=== PATIENT | male | born 1945 | race Caucasian/White ===

== ENCOUNTER 2017-12-08 15:07 | Inpatient (IN) | payer OTHER, MEDICARE ==
[~2017-12-08] VITALS: Ht 170.2 cm; Wt 89.5 kg
[~2017-12-08 15:07] MED LIST: AZIT250 PO; CIPR500 PO; FLUC100 PO; HYDACE10 PO; IBUP600 PO; Norco 10-325 T1 EACH PO; OMEPRAZOLE MAGN20 MG PO; TRAM50 PO
[2017-12-08 15:40] LABS: Source, Urine Catheter
[2017-12-08 15:44] LABS: Appearance, Urine Cloudy (Clear); Blood, Urine 5+ (Neg); Color, Urine Brown (P-Yellow); Glucose Qualitative, Urine Neg (Neg); Ketones, Urine 2+ (Neg); Leukocyte Esterase, Urine 3+ (Neg); Nitrite, Urine Neg (Neg); Protein, Urine 2+ (Neg); Specific Gravity, Urine 1.015 (1.003-1.022); Urobilinogen, Urine 3+ (Normal)
[2017-12-08 15:58] LABS: Bilirubin, Urine 2+ (Neg)
[2017-12-08 16:00] LABS: White Blood Cells, Urine 25-50 /hpf (0-5)
[2017-12-08 16:01] LABS: Red Blood Cells, Urine 25-50 /hpf (0-2)
[2017-12-08 16:02] LABS: Bacteria Many /hpf; Squamous Epithelial Cells Few /hpf (Few)
[2017-12-08 16:03] LABS: Calcium Oxalate Crystals Rare /hpf
[2017-12-08] MEDS ORDERED: ALEN70 PO (16:58)
[2017-12-08] MEDS ORDERED: BACL10 PO (16:59)
[2017-12-08] MEDS ORDERED: Fergon240 M1 PO (16:59)
[2017-12-08] MEDS ORDERED: TROSPIUM CHLORI20 MG PO (17:00)
[2017-12-08] MEDS ORDERED: ARTIFICIAL TEAR15 ML BOTHEYES (18:44)
[2017-12-08] MEDS ORDERED: MUPIROCIN1 GM TOP (18:46)
[2017-12-08] MEDS ORDERED: VANICREAM453 GM TOP (18:48)
[2017-12-08] MEDS ORDERED: ASCORBIC ACID500 MG PO (18:49)
[2017-12-08] MEDS ORDERED: ERGO400 PO (18:49)
[2017-12-08] MEDS ORDERED: ASPI81CH PO (18:49)
[2017-12-08] MEDS ORDERED: Super B-50 Com1 EACH PO (18:50)
[2017-12-09 06:16] LABS: Hematocrit 33.1 % (37.0-53.0); Hemoglobin 9.9 g/dL (13.5-17.5); Mean Corpuscular HGB 22.8 pg (26.0-34.0); Mean Corpuscular HGB Conc 29.9 g/dL (31.5-36.5); Mean Corpuscular Volume 76 fL (80-100); Platelet Count 594 K/mm3 (150-400); RDW Coefficient Variation 18.3 % (11.7-14.2); Red Blood Cell Count 4.35 M/mm3 (4.30-5.90); White Blood Cell Count 17.68 K/mm3 (4.00-11.30)
[2017-12-09 06:32] LABS: Anion Gap 13 mmol/L (6-16); Blood Urea Nitrogen 27 mg/dL (8-24); Bun/Creatinine Ratio 50.8 (12.0-20.0); CO2, Blood 18 mmol/L (21-32); Calcium, Blood 7.8 mg/dL (8.5-10.1); Chloride, Blood 107 mmol/L (98-108); Creatinine, Blood 0.53 mg/dL (0.60-1.20); Glomerular Filtration Rate >60 (60-); Glucose, Blood 118 mg/dL (70-99); Potassium, Blood 4.2 mmol/L (3.5-5.5); Sodium, Blood 138 mmol/L (136-145)
[2017-12-10 03:30] LABS: Hematocrit 29.1 % (37.0-53.0); Hemoglobin 8.9 g/dL (13.5-17.5); Mean Corpuscular HGB 23.3 pg (26.0-34.0); Mean Corpuscular HGB Conc 30.6 g/dL (31.5-36.5); Mean Corpuscular Volume 76 fL (80-100); Mean Platelet Volume 8.9 fL (9.1-12.4); Platelet Count 552 K/mm3 (150-400); RDW Coefficient Variation 18.4 % (11.7-14.2); RDW Standard Deviation 50.6 fL (35.1-46.3); Red Blood Cell Count 3.82 M/mm3 (4.30-5.90); White Blood Cell Count 14.63 K/mm3 (4.00-11.30)
[2017-12-10 03:47] LABS: Albumin, Blood 1.5 g/dL (3.4-5.0); Anion Gap 12 mmol/L (6-16); Blood Urea Nitrogen 33 mg/dL (8-24); Bun/Creatinine Ratio 54.3 (12.0-20.0); CO2, Blood 19 mmol/L (21-32); Calcium, Blood 7.2 mg/dL (8.5-10.1); Chloride, Blood 108 mmol/L (98-108); Creatinine, Blood 0.61 mg/dL (0.60-1.20); Glomerular Filtration Rate >60 (60-); Glucose, Blood 94 mg/dL (70-99); Phosphorus, Blood 3.4 mg/dL (2.5-4.9); Potassium, Blood 3.9 mmol/L (3.5-5.5); Sodium, Blood 139 mmol/L (136-145)
[2017-12-10 06:22] LABS: Source, Urine Catheter
[2017-12-10 06:25] LABS: Blood, Urine 2+ (Neg); Glucose Qualitative, Urine Neg (Neg); Ketones, Urine Neg (Neg); Leukocyte Esterase, Urine 1+ (Neg); Nitrite, Urine Neg (Neg); Protein, Urine 2+ (Neg); Urobilinogen, Urine 2+ (Normal)
[2017-12-10 06:30] LABS: Appearance, Urine Clear (Clear); Bilirubin, Urine 1+ (Neg); Color, Urine Amber (P-Yellow)
[2017-12-10 06:31] LABS: White Blood Cells, Urine 0-2 /hpf (0-5)
[2017-12-10 06:32] LABS: Amorphous Mod (0-Heavy); Bacteria Few /hpf; Squamous Epithelial Cells Few /hpf (Few)
[2017-12-10 06:33] LABS: Granular Casts 0-2 /lpf (0); Renal Epithelial Few /hpf (0-Rare); Transitional Epithelial Cells Few /hpf (0-Rare)
[2017-12-11 04:09] LABS: Hematocrit 22.1 % (37.0-53.0); Hemoglobin 6.9 g/dL (13.5-17.5); Mean Corpuscular HGB 23.5 pg (26.0-34.0); Mean Corpuscular HGB Conc 31.2 g/dL (31.5-36.5); Mean Corpuscular Volume 75 fL (80-100); Mean Platelet Volume 9.3 fL (9.1-12.4); Platelet Count 482 K/mm3 (150-400); RDW Coefficient Variation 18.6 % (11.7-14.2); RDW Standard Deviation 50.3 fL (35.1-46.3); Red Blood Cell Count 2.94 M/mm3 (4.30-5.90); White Blood Cell Count 13.71 K/mm3 (4.00-11.30)
[2017-12-11 06:14] LABS: Anion Gap 9 mmol/L (6-16); Blood Urea Nitrogen 25 mg/dL (8-24); Bun/Creatinine Ratio 43.6 (12.0-20.0); CO2, Blood 21 mmol/L (21-32); Calcium, Blood 7.2 mg/dL (8.5-10.1); Chloride, Blood 109 mmol/L (98-108); Creatinine, Blood 0.57 mg/dL (0.60-1.20); Glomerular Filtration Rate >60 (60-); Glucose, Blood 93 mg/dL (70-99); Potassium, Blood 3.2 mmol/L (3.5-5.5); Sodium, Blood 139 mmol/L (136-145)
[2017-12-12] MEDS ORDERED: CEFU500T30 PO (12:24)
[2017-12-12] MEDS ORDERED: ACIDOPHILUS1 EAC2 PO (12:25)
[2017-12-12] MEDS ORDERED: Pedi-Dri 100,0060 GM TOP (12:36)
[2017-12-12] MEDS ORDERED: MIRALAX17 GM PO (12:37)
== END 2017-12-12 14:48 | disposition home health service (06) | DRG 698 ==
LOC: ER 15:07 → PCU 16:22 → MEDS 12-11 15:29 → ENPENDDIS 12-12 13:01 → MEDS 12-12 14:48
PROVIDERS: Internal Medicine; Physician Assistant
PROC: 30233N1 Transfusion of Nonautologous Red Blood Cells into Peripheral Vein, Percutaneous Approach (ICD-10-PCS; principal; 2017-12-11)
DX: T83.511A Infection and inflammatory reaction due to indwelling urethral catheter, initial encounter (principal); A41.9 Sepsis, unspecified organism; R65.21 Severe sepsis with septic shock; G82.20 Paraplegia, unspecified; E87.2 Acidosis; N39.0 Urinary tract infection, site not specified; B96.4 Proteus (mirabilis) (morganii) as the cause of diseases classified elsewhere; B96.89 Other specified bacterial agents as the cause of diseases classified elsewhere; L89.159 Pressure ulcer of sacral region, unspecified stage; L89.899 Pressure ulcer of other site, unspecified stage; N31.9 Neuromuscular dysfunction of bladder, unspecified; I25.10 Atherosclerotic heart disease of native coronary artery without angina pectoris; E87.6 Hypokalemia; I10 Essential (primary) hypertension; D50.8 Other iron deficiency anemias; E86.0 Dehydration; E87.79 Other fluid overload; K59.00 Constipation, unspecified; L30.4 Erythema intertrigo; B37.2 Candidiasis of skin and nail; Z43.3 Encounter for attention to colostomy; S24.102S Unspecified injury at T2-T6 level of thoracic spinal cord, sequela; Z95.1 Presence of aortocoronary bypass graft; Z79.899 Other long term (current) drug therapy; Z79.82 Long term (current) use of aspirin; Z87.891 Personal history of nicotine dependence
CPT/HCPCS: 36415; 71045; 74018; 80048; 80069; 81001; 83605; 85027; 86850; 86900; 86901; 86923; 87077; 87086; 87186; 96361; 96374; 99285-25; J0696; J1650; J1885; J1940; J2405; J2543; J2765; J7030; P9016

== ENCOUNTER → 2019-04-02 | Outpatient (CLI) | payer MEDICARE ==
[~2019-04-02] MED LIST changes: +ACET500 PO; +ACIDOPHILUS1 EAC2 PO; +ALEN70 PO; +ARTIFICIAL TEAR15 M1 BOTHEYES; +ARTIFICIAL TEAR15 ML BOTHEYES; +ASCORBIC ACID500 MG PO; +Aspir 8181 MG PO; +B Complex-Foli1 EACH PO; +BACL10 PO; +CEFP200 PO; +CEFU500T30 PO; +CENTRUM SILVER1 EAC2 PO; +ERGO400 PO; +Fergon240 M1 PO; +GABA400 PO; +IODOSORB TOP; +LIDOCAINE5 GM TOP; +METO25ER PO; +MIRALAX17 GM; +MUPIROCIN1 GM TOP; +Norco 10-325 T1 EACH; +Pedi-Dri 100,0060 GM TOP; +Super B-50 Com1 EACH PO; +THERA-D2000 UNIT PO; +TROSPIUM CHLORI20 MG PO; +VANICREAM453 GM TOP
== END | disposition home or self-care (01) ==
LOC: LAB SHORT 19:32 → LAB 19:32
DX: T21.02XA Burn of unspecified degree of abdominal wall, initial encounter (principal)
CPT/HCPCS: 87070; 87075; 87077; 87147; 87186; 87205

== ENCOUNTER 2019-04-04 15:41 | Inpatient (IN) | payer MEDICARE ==
[~2019-04-04] VITALS: Ht 167.6 cm; Wt 92.1 kg
[~2019-04-04 15:41] MED LIST changes: -ACET500 PO; -ARTIFICIAL TEAR15 M1 BOTHEYES; -B Complex-Foli1 EACH PO; -CENTRUM SILVER1 EAC2 PO; -GABA400 PO; -IODOSORB TOP; -LIDOCAINE5 GM TOP; -METO25ER PO; -THERA-D2000 UNIT PO
[2019-04-04 16:56] LABS: BASOPHILS ABSOLUTE AUTO 0.02 K/mm3 (0.00-0.23); BASOPHILS PERCENT AUTO 0 % (0-2); EOSINOPHILS ABSOLUTE AUTO 0.02 K/mm3 (0.00-0.68); EOSINOPHILS PERCENT AUTO 0 % (0-6); Hemoglobin 11.5 g/dL (13.5-17.5); IMMATURE GRAN ABSOLUTE AUTO 0.06 K/mm3 (0.00-0.10); IMMATURE GRAN PERCENT AUTO 0 % (0-1); LYMPHOCYTES ABSOLUTE AUTO 0.91 K/mm3 (0.84-5.20); LYMPHOCYTES PERCENT AUTO 6 % (21-46); MONOCYTES PERCENT AUTO 5 % (4-13); Mean Corpuscular HGB 26.8 pg (26.0-34.0); Mean Corpuscular HGB Conc 30.3 g/dL (31.5-36.5); Mean Corpuscular Volume 89 fL (80-100); Mean Platelet Volume 9.3 fL (9.1-12.4); NEUTROPHILS ABSOLUTE AUTO 13.46 K/mm3 (1.96-9.15); NEUTROPHILS PERCENT AUTO 88 % (41-73); Platelet Count 611 K/mm3 (150-400); RDW Coefficient Variation 14.9 % (11.7-14.2); RDW Standard Deviation 48.9 fL (35.1-46.3); Red Blood Cell Count 4.29 M/mm3 (4.30-5.90); White Blood Cell Count 15.27 K/mm3 (4.00-11.30)
[2019-04-04 17:20] LABS: Magnesium, Blood 1.7 mg/dL (1.6-2.4)
[2019-04-04 17:28] LABS: Alanine Aminotransfer (ALT/SGP 13 U/L (12-78); Albumin, Blood 1.9 g/dL (3.4-5.0); Albumin/Globulin Ratio 0.3 (0.8-1.8); Alk Phos 114 U/L (50-136); Anion Gap 15 mmol/L (6-16); Aspartate Aminotrans (AST/SGOT 17 U/L (12-37); Beta-hydroxybutyrate 37.8 mg/dL (0.2-2.8); Bilirubin, Total 0.6 mg/dL (0.1-1.0); Blood Urea Nitrogen 25 mg/dL (8-24); Bun/Creatinine Ratio 41.9 (12.0-20.0); CO2, Blood 23 mmol/L (21-32); Calcium, Blood 8.8 mg/dL (8.5-10.1); Chloride, Blood 96 mmol/L (98-108); Globulin, Blood 5.9 g/dL (2.2-4.0); Glomerular Filtration Rate >60 (60-); Glucose, Blood 98 mg/dL (70-99); Potassium, Blood 4.3 mmol/L (3.5-5.5); Sodium, Blood 134 mmol/L (136-145); Total Protein, Blood 7.8 g/dL (6.4-8.2)
[2019-04-04 17:44] LABS: Source, Urine Catheter
[2019-04-04 17:54] LABS: Blood, Urine 3+ (Neg); Glucose Qualitative, Urine Neg (Neg); Ketones, Urine 3+ (Neg); Leukocyte Esterase, Urine 3+ (Neg); Nitrite, Urine Pos (Neg); Protein, Urine 3+ (Neg); Specific Gravity, Urine 1.025 (1.003-1.022); Urobilinogen, Urine 2+ (Normal)
[2019-04-04 18:20] LABS: Appearance, Urine Cloudy (Clear); Bilirubin, Urine 2+ (Neg); Color, Urine Amber (P-Yellow)
[2019-04-04 18:22] LABS: Bacteria Many /hpf; Red Blood Cells, Urine 0-2 /hpf (0-2); Squamous Epithelial Cells Not Seen /hpf (Few); White Blood Cells, Urine TNTC /hpf (0-5)
[2019-04-04] MEDS ORDERED: THERA-D2000 UNIT PO (19:52)
[2019-04-04] MEDS ORDERED: GABA400 PO (19:53)
[2019-04-04] MEDS ORDERED: METO25ER PO (19:55)
[2019-04-04] MEDS ORDERED: CENTRUM SILVER1 EAC2 PO (19:56)
[2019-04-04 20:18] LABS: PCO2 Arterial 34.8 mmHg (35-45); PO2 Arterial 104 mmHg (80-100)
--- NOTE | 2019-04-04 20:25 | NUR ---
PATIENT ARRIVED TO ICU 10 VIA GURNEY FROM ED. ADMIT WITH DX OF SEPSIS, UTI, AND EXTENSIVE WOUNDS. PATIENT TRANSFER TO BED USING SLIDER SHEET AND PLACED ON ICU MONITORS. NO MOVEMENT AND CONTRACTURES TO FEET AND LEGS. GROSS MOVEMENT TO ARMS AND FINGERS BOTH HANDS HAVE CONTRACTURES. PATIENT VERBALIZED "HOW DID I GET HERE" BUT WHEN EXPLAINED TO PATIENT WHY HE IS HERE HE REPEATS QUESTION. PATIENT ANSWERING QUESTIONS WITH YES AND I DON'T KNOW AND VERY INCONSISTENT WITH ANSWERS. PATIENT VERY IMPULSIVE AND PULLING AT HEART MONITOR AND LINEN, UNABLE TO VERBALIZE WHY HE IS PULLING ON THINGS AND WHERE HE IS HURTING. EXTENSIVE WOUNDS TO ABD, BUTTOCKS, RIGHT HIP, AND BOTH LEGS. SEE ED PICTURES. DRAINAGE TO BUTTOCKS WITH STRONG SMELLING DRAINAGE.
--- NOTE | 2019-04-04 23:00 | NUR ---
SUPRAPUBIC CATH CHANGED AND REPLACED WITH LOYOLA WITH TEMP PROBE. AREA AROUND INSERTION SITE RED WITH CRUSTY DRAINAGE. EXCHANGE COMPLETE WITHOUT DIFFICULTY. SILVADENE CREAM PLACED TO ABD AND RICHARD AREA AND COVERED WITH ABD PADS. PATIENT PREMEDICATED WITH FENTANYL FOR PAIN. PATIENT CONTINUES TO HAVE CONFUSED CONVERSATION. NEEDING FREQUENT REMINDING TO NOT PULL OFF HEART MONITOR OR DRESSINGS
[2019-04-04 23:28] LABS: Source, Urine Catheter
[2019-04-04 23:32] LABS: Bilirubin, Urine Neg (Neg); Blood, Urine 5+ (Neg); Glucose Qualitative, Urine Neg (Neg); Ketones, Urine 3+ (Neg); Leukocyte Esterase, Urine 3+ (Neg); Nitrite, Urine Neg (Neg); Protein, Urine 2+ (Neg); Urobilinogen, Urine NORM (Normal)
[2019-04-04 23:40] LABS: Appearance, Urine Hazy (Clear); Color, Urine Yellow (P-Yellow)
[2019-04-04 23:41] LABS: Bacteria Mod /hpf; Red Blood Cells, Urine 25-50 /hpf (0-2); Squamous Epithelial Cells Few /hpf (Few); White Blood Cells, Urine TNTC /hpf (0-5)
--- NOTE | 2019-04-05 | NUR ---
MULTIPLE DRESSINGS COMPLETE, AND NYSTATIN CREAM PLACED TO ABD FOLDS AND UNDERARM FOLDS. AREAS CLEANSED AND FOAM DRESSING PLACED TO BUTTOCKS, RIGHT HIP, LEFT INNER THIGH, RIGHT LOWER LEG CALF, OUTER LEFT ANKLE/FOOT, AND BOTH HEALS. CT AND XRAY COMPLETE TO RIGHT LEG. MACRINA PAIZ IN TO SEE PATIENT.
[2019-04-05 03:20] LABS: BASOPHILS ABSOLUTE AUTO 0.01 K/mm3 (0.00-0.23); BASOPHILS PERCENT AUTO 0 % (0-2); EOSINOPHILS ABSOLUTE AUTO 0.03 K/mm3 (0.00-0.68); EOSINOPHILS PERCENT AUTO 0 % (0-6); Hematocrit 31.3 % (37.0-53.0); Hemoglobin 9.4 g/dL (13.5-17.5); IMMATURE GRAN ABSOLUTE AUTO 0.05 K/mm3 (0.00-0.10); IMMATURE GRAN PERCENT AUTO 0 % (0-1); LYMPHOCYTES ABSOLUTE AUTO 0.81 K/mm3 (0.84-5.20); LYMPHOCYTES PERCENT AUTO 7 % (21-46); MONOCYTES ABSOLUTE AUTO 0.78 K/mm3 (0.16-1.47); MONOCYTES PERCENT AUTO 7 % (4-13); Mean Corpuscular HGB 26.8 pg (26.0-34.0); Mean Corpuscular Volume 89 fL (80-100); NEUTROPHILS ABSOLUTE AUTO 9.89 K/mm3 (1.96-9.15); NEUTROPHILS PERCENT AUTO 86 % (41-73); Platelet Count 443 K/mm3 (150-400); RDW Coefficient Variation 14.9 % (11.7-14.2); RDW Standard Deviation 48.9 fL (35.1-46.3); Red Blood Cell Count 3.51 M/mm3 (4.30-5.90); White Blood Cell Count 11.57 K/mm3 (4.00-11.30)
[2019-04-05 03:36] LABS: Anion Gap 8 mmol/L (6-16); Blood Urea Nitrogen 18 mg/dL (8-24); Bun/Creatinine Ratio 37.9 (12.0-20.0); CO2, Blood 26 mmol/L (21-32); Calcium, Blood 7.7 mg/dL (8.5-10.1); Chloride, Blood 109 mmol/L (98-108); Creatinine, Blood 0.48 mg/dL (0.60-1.20); Glomerular Filtration Rate >60 (60-); Glucose, Blood 99 mg/dL (70-99); Potassium, Blood 4.1 mmol/L (3.5-5.5); Sodium, Blood 143 mmol/L (136-145)
[2019-04-05] MEDS ORDERED: ACET500 PO (05:21)
[2019-04-05] MEDS ORDERED: LIDOCAINE5 GM TOP (05:27)
[2019-04-05] MEDS ORDERED: B Complex-Foli1 EACH PO (05:28)
[2019-04-05] MEDS ORDERED: IODOSORB TOP (05:29)
[2019-04-05] MEDS ORDERED: ARTIFICIAL TEAR15 M1 BOTHEYES (05:30)
--- NOTE | 2019-04-05 07:14 | NUR ---
SUMMARY PATIENT SLEEPING WITH BIPAP IN PLACE, AWAKENS EASILY TO SLIGHT STIMULI, FALLING BACK TO SLEEP WHEN UNDISTURBED. PATIENT CONTINUES WITH CONFUSED CONVERSATION, NOT ALWAYS FOLLOWING DIRECTIONS. NEEDING FREQUENT REMINDERS TO NOT PULL OFF DRESSINGS. VSS T/O NIGHT.
--- NOTE | 2019-04-05 08:00 | NUR ---
INITIAL ASSESMENT PT AROUSABLE TO VOICE, VERY CONFUSED ON SITUATION AND REPEADELY ASKING WHAT HAPPENED AND IF HE WAS IN A ACCIDENT. REORIENTED AND RTASSURED.. OBEYS COMMANDS, BUT RESISTIVE TO CARE AT TIMES AND VERBALLY ABRASIVE DENIES PAIN AT THIS TIME.VSS, PALP PULSES IN BILAT US AND WEAK IN BILAT LOWER EXTREMETIES, WICOOL EXTREMETIES AND POOR BILAT LE CAP REFILL. NO EDEMA. TOLERATING BIPAP. NO S/S OF RESP DISTRESS OR SOB. CLEAR AND DIM BILAT. OSTOMY INTACT, SURROUNDING SKIN EXCORIATED AND MOIST WITH OSTOMY BAG CHANGED. BT T/O. WITH STOMA PINK, OVAL AND BROWN FORMED STOOL OUTPUT. UO ADEQUATE VIA SP, YELLOW AND CLEAR. SKIN EXTREMELY EXCORIATED, OZZING, OPEN AREAS AND YELLOW DISCHARGE. SEE PHOTOS IN PT CHART. ABD WOUNDS TREATED AND COVERED WITH ABD PADS, RICHARD AND POSTERIOR AREAS TREATED PER MD ORDER WELL. TURNS Q 2. WILL CONT TO MONITOR. CONT TO MONITOR.
--- NOTE | 2019-04-05 15:26 | NUR ---
PT UPDATE BIPAP OFF AND PT TOLERATING WELL THUS FAR. VSS, REFUSED RX. UO ADEQUATE. BED LINENS CHANGED, Q2 TURNS, PT MAY TRANSFER TO [facility]. SON AT BEDSIDE.
--- NOTE | 2019-04-05 20:53 | NUR ---
PATIENT RESTING IN BED AWAKENS TO SLIGHT STIMULI. ORIENTATED TO PERSON ONLY, BUT FOLLOWING DIRECTIONS. PARAPLEGIC, NO MOVEMENT IN LOWER EXT, GROSS MOVEMENT IN ARMS, CONTRACTURES IN HANDS AND LEGS. DRESSINGS CD&I. COLOSTOMY INTACT TO LEFT LOWER ABD WITH SMALL AMT SOFT BROWN STOOL CONTAINED IN BAG. PATIENT REQUESTING SOMETHING TO DRINK. BEDSIDE SWALLOW EVAL COMPLETE AND PATIENT DID WELL MACRINA CLIENT SERVICE EXECUTIVE NOTIFIED AND DIET ORDER OBTAINED.
[2019-04-06 03:25] LABS: BASOPHILS ABSOLUTE AUTO 0.03 K/mm3 (0.00-0.23); BASOPHILS PERCENT AUTO 0 % (0-2); EOSINOPHILS ABSOLUTE AUTO 0.12 K/mm3 (0.00-0.68); EOSINOPHILS PERCENT AUTO 2 % (0-6); Hemoglobin 8.1 g/dL (13.5-17.5); IMMATURE GRAN ABSOLUTE AUTO 0.03 K/mm3 (0.00-0.10); IMMATURE GRAN PERCENT AUTO 0 % (0-1); LYMPHOCYTES ABSOLUTE AUTO 0.93 K/mm3 (0.84-5.20); LYMPHOCYTES PERCENT AUTO 12 % (21-46); MONOCYTES ABSOLUTE AUTO 0.62 K/mm3 (0.16-1.47); MONOCYTES PERCENT AUTO 8 % (4-13); Mean Corpuscular HGB 26.4 pg (26.0-34.0); Mean Corpuscular Volume 88 fL (80-100); Mean Platelet Volume 8.9 fL (9.1-12.4); NEUTROPHILS ABSOLUTE AUTO 5.78 K/mm3 (1.96-9.15); NEUTROPHILS PERCENT AUTO 77 % (41-73); Platelet Count 392 K/mm3 (150-400); RDW Coefficient Variation 15.2 % (11.7-14.2); RDW Standard Deviation 47.9 fL (35.1-46.3); Red Blood Cell Count 3.07 M/mm3 (4.30-5.90); White Blood Cell Count 7.51 K/mm3 (4.00-11.30)
[2019-04-06 03:45] LABS: Anion Gap 8 mmol/L (6-16); Blood Urea Nitrogen 12 mg/dL (8-24); Bun/Creatinine Ratio 35.2 (12.0-20.0); CO2, Blood 24 mmol/L (21-32); Calcium, Blood 7.8 mg/dL (8.5-10.1); Chloride, Blood 113 mmol/L (98-108); Creatinine, Blood 0.34 mg/dL (0.60-1.20); Glomerular Filtration Rate >60 (60-); Glucose, Blood 94 mg/dL (70-99); Sodium, Blood 145 mmol/L (136-145)
--- NOTE | 2019-04-06 06:24 | NUR ---
SUMMARY PATIENT SLEEPING OFF AND ON T/O THE NIGHT. AWAKENS TO VERBAL STIMULI, FALLING BACK TO SLEEP WHEN UNDISTURBED. PATIENT CONFUSION CONTINUES, NEEDING FREQUENT REORIENTATION. PATIENT MAINTAINING BIOX ON 2L/NC NOT REQUIRING BIPAP DURING THE NIGHT. COLOSTOMY WITH SOFT BROWN STOOL. SUPRAPUBIC CATH CONTINUES TO HAVE CRUSTY DRAINAGE AT INSERTION SITE. MULTIPLE DRESSINGS TO WOUNDS, SEE WOUND CHARTING.
--- NOTE | 2019-04-06 08:00 | NUR ---
INITIAL ASSESMENT PT ALERT AND COOPERATIVE AND VERY ABRASIVE. OBEYS COMMANDS AND RESPONDS WITH DENIES PAIN AT THIS TIME.VSS, PALP PULSES T/O. 2L NC WITH SATS WNL. NO S/S OF RESP DISTRESS OR SOB. CLEAR AND DIM BILAT. OSTOMY INTACT, SURROUNDING SKIN INTACT STOMA PINK AND MOIST BT T/O. UO ADEQUATE VIA SP CATH, YELLOW AND CLEAR URINE. TOLERATING DIET WITH NO S/S OF ASPIRATION. SKIN IMPROVING WITH BEDS PINK AND BORDER INTACT WITH GRANULATION. WILL CONT MD ORDERED SKIN TREATMENTS. WILL CONT TO MONITOR
[2019-04-06 11:43] LABS: Vancomycin, Trough 19.2 ug/mL (5.0-10.0)
--- NOTE | 2019-04-06 14:40 | NUR ---
PT TRANSFER PT TRANSFERED TO PCU 8 WITH ALL BELONGINGS AND REPORT GIVEN TO SALES MERCHANDISER WITH TRANSFER COMPLETED SAFELY.
--- NOTE | 2019-04-06 14:50 | NUR ---
PT TRANSFERRED FROM ICU TO PCU 8. REPORT RECIEVED FROM GEOVANNA. PT SLID OVER INTO BED, MULTIPLE WOUNDS NOTED TO ABDOMEN, THIGH AND COCCYX WITH DRESSINGS CHANGED EARLIER THIS SHIFT. DENIES NEEDS OR CONCERNS AT THIS TIME.
--- NOTE | 2019-04-06 18:19 | NUR ---
SHIFT SUMMARY: PT'S FAMILY WAS AT BEDSIDE THIS EVENING AND HAD QUESTIONS REGARDING PLAN. THEY WERE INFORMED OF PLAN FOR SNF DC AND ABOUT INVESTIGATION IN ORDER FOR SAFE DISCHARGE TO [facility]. FAMILY ASKED HOW COLON HAPPENED AND PT WAS UNSURE. DERMATOME ASSESSMENT DONE AND DETERMINED THAT BENEATH DIAPHRAGM PT BEGINS TO LOSE FEELING OF SENSATION BUT IS ABLE TO FEEL PRESSURE. IMMOBILIZER TO RIGHT LEG PER DR MON ORDERS. NO FURTHER NEEDS OR CONCERNS IDENTIFIED
[2019-04-07 03:48] LABS: BASOPHILS ABSOLUTE AUTO 0.04 K/mm3 (0.00-0.23); BASOPHILS PERCENT AUTO 1 % (0-2); EOSINOPHILS ABSOLUTE AUTO 0.21 K/mm3 (0.00-0.68); EOSINOPHILS PERCENT AUTO 3 % (0-6); Hematocrit 29.1 % (37.0-53.0); Hemoglobin 8.6 g/dL (13.5-17.5); IMMATURE GRAN ABSOLUTE AUTO 0.03 K/mm3 (0.00-0.10); IMMATURE GRAN PERCENT AUTO 0 % (0-1); LYMPHOCYTES ABSOLUTE AUTO 1.02 K/mm3 (0.84-5.20); LYMPHOCYTES PERCENT AUTO 14 % (21-46); MONOCYTES ABSOLUTE AUTO 0.54 K/mm3 (0.16-1.47); MONOCYTES PERCENT AUTO 8 % (4-13); Mean Corpuscular HGB 26.2 pg (26.0-34.0); Mean Corpuscular HGB Conc 29.6 g/dL (31.5-36.5); Mean Corpuscular Volume 89 fL (80-100); Mean Platelet Volume 9.1 fL (9.1-12.4); NEUTROPHILS ABSOLUTE AUTO 5.27 K/mm3 (1.96-9.15); NEUTROPHILS PERCENT AUTO 74 % (41-73); Platelet Count 390 K/mm3 (150-400); RDW Standard Deviation 49.1 fL (35.1-46.3); Red Blood Cell Count 3.28 M/mm3 (4.30-5.90); White Blood Cell Count 7.11 K/mm3 (4.00-11.30)
[2019-04-07 04:05] LABS: Anion Gap 4 mmol/L (6-16); Blood Urea Nitrogen 13 mg/dL (8-24); Bun/Creatinine Ratio 26.2 (12.0-20.0); CO2, Blood 28 mmol/L (21-32); Calcium, Blood 7.7 mg/dL (8.5-10.1); Chloride, Blood 111 mmol/L (98-108); Glomerular Filtration Rate >60 (60-); Glucose, Blood 124 mg/dL (70-99); Potassium, Blood 3.9 mmol/L (3.5-5.5); Sodium, Blood 143 mmol/L (136-145)
--- NOTE | 2019-04-07 06:26 | NUR ---
END OF SHIFT SUMMARY PT SOMETIMES ALERT ASOMETIMES CONFUSED. Q2 TURNS. ALL WOUNDS CLEANED, REDRESSED PER ORDERS. PT'S SENSATION REMARKEDLY LITTLE FROM NIPPLE LINE DOWN TO FEET. PT TOLERATED WOUND CARE WELL. COLOSTOMY SITE CLEANED AND POUCH REPLACED. SUPRAPUBIC CATHETER REMAINS IN PLACE, PATENT AND DRAINING. IMMOBILOIZER REMAINS IN PLACE R LEG. PT HAS BEEN GRUMPY WITH STAFF AT TIMES BUT HAS BEEN OVERALL COOPERATIVE. XRAYS COMPLETE ON SHOULDERS. IVS PATENT. SOMETIMES USES CALL LIGHT, HAVE BEEN CHECKING ON PT TO ASSESS NEEDS. WILL CONTINUE TO MONITOR PT UNTIL SHIFT CHNSAGE.
--- NOTE | 2019-04-07 10:30 | NUR ---
Initial Visit: Palliative Care Consult for Advanced Care Planning. Pt is A&O and reports 7/10 headache. Pt reports mild but mangeable SOB. Pt denies anxiety and nausea. Visit was brief due to Pt's heart burn. Engaged in therapeutic discussion regarding advacned care planning. Pt reports living at home alone. Discussed concerns regarding Pt's inability to care for himself appropriately. Discussed the importance of considering a highter level of care. Pt's heart burn is becoming worse at this point in visit. Pt requests for visit at a later time when feeling better. Asked if son can be contacted and Pt denied request. Pt states he has too much going on at this time. Spoke with bedside nurses Lico and Irasema and discussed case. Prior to visit spoke with quyen Hill and discussed case. Spoke with DR Castillo and requested order for Pt's heartburn. Palliative Care will remain available.
--- NOTE | 2019-04-07 12:44 | NUR ---
Wound care completed, all dressings were changed on the abdomen and sacrum/coccyx area. Wounds were cleansed with skintegrity, and new bandages applied. The ostomy appliance was also replaced. The proximity of wounds and bandages to the appliance application area prevents good adhesion; so the old one just fell off when dressings were changed. Pt tolerated the procedure well. States that he is still having some indigestion, all day.
[2019-04-07 12:48] LABS: Vancomycin, Trough 16.1 ug/mL (5.0-10.0)
--- NOTE | 2019-04-07 13:05 | NUR ---
END OF CARE TRANSFER ORDERS RECEIVED, REPORT GIVEN TO MERRY LO NURSE. PATIENT TRANSFERRED VIA HOSP BED TO [facility] RM 358 BY TWO PCU STAFF. PATIENT LEFT UNIT WITH ALL HIS BELONGINGS, PLUS CURRENT BEDSIDE MEDICATIONS. AT TIME OF TRANSFER PATIENT WAS ALERT AND ORIENTED WITH PAIN LEVEL AT 6 PER PT WHICH IS ACCEPTABLE TO HIM. ALL PATIENT'S WOUNDS CLEANED AND REDRESSED IMMEDIATELY PRIOR TO TRANSFER. IV WAS PATENT AND INFUSING, PATIENT UNDERSTANDS RATIONALE FOR TRANSFER.
--- NOTE | 2019-04-07 13:10 | NUR ---
Assumed care of patient A/Ox3. Patient transferred from PCU to MED room 358, received report from IRAIDA Ahuja. Pt came up with chronic suprapubic catheter and ostomy, both patent and draining. Wound dressing were changed by reporting RN, C/D/I. Room air, immobilizer on R leg from tibial fx. Pt is reported to be baseline bedbound, mobilizes in his mobile w/c at home, and is paraplegic. Bed in lowest position, call light in reach, pt oriented to room.
--- NOTE | 2019-04-07 13:18 | NUR ---
Spiritual care visit conducted. Patient is in process of moving from PCU to Medical floor, but patient is still able to share his spiritual journey and his quest to know God authentically and not just the organized voodoo groups that tell others how God has to be known. Patient also shares about his medical conditions and his thoughts on and dying. Hetalks about his family some as well. I listen empathically, normalize patient experience, provide spiritual guidance and levity. Patient responds well and shows signs of an elevated mood. I will continue to remain available.
--- NOTE | 2019-04-07 18:33 | NUR ---
Shift Summary No changes or concerns since assumption of care. Dressings remain C/D/I. Ostomy bag changed x 1 and emptied as needed. Urine cathether is intact and draining clear yellow urine. Call light near, TQ2.
[2019-04-08 04:47] LABS: BASOPHILS ABSOLUTE AUTO 0.03 K/mm3 (0.00-0.23); BASOPHILS PERCENT AUTO 0 % (0-2); EOSINOPHILS ABSOLUTE AUTO 0.24 K/mm3 (0.00-0.68); EOSINOPHILS PERCENT AUTO 3 % (0-6); Hematocrit 29.5 % (37.0-53.0); Hemoglobin 8.7 g/dL (13.5-17.5); IMMATURE GRAN ABSOLUTE AUTO 0.02 K/mm3 (0.00-0.10); IMMATURE GRAN PERCENT AUTO 0 % (0-1); LYMPHOCYTES ABSOLUTE AUTO 1.42 K/mm3 (0.84-5.20); LYMPHOCYTES PERCENT AUTO 19 % (21-46); MONOCYTES ABSOLUTE AUTO 0.59 K/mm3 (0.16-1.47); MONOCYTES PERCENT AUTO 8 % (4-13); Mean Corpuscular HGB 26.9 pg (26.0-34.0); Mean Corpuscular HGB Conc 29.5 g/dL (31.5-36.5); Mean Corpuscular Volume 91 fL (80-100); Mean Platelet Volume 9.1 fL (9.1-12.4); NEUTROPHILS ABSOLUTE AUTO 5.01 K/mm3 (1.96-9.15); NEUTROPHILS PERCENT AUTO 69 % (41-73); Platelet Count 421 K/mm3 (150-400); RDW Coefficient Variation 14.9 % (11.7-14.2); RDW Standard Deviation 49.8 fL (35.1-46.3); Red Blood Cell Count 3.24 M/mm3 (4.30-5.90); White Blood Cell Count 7.31 K/mm3 (4.00-11.30)
[2019-04-08 05:06] LABS: Anion Gap 4 mmol/L (6-16); Blood Urea Nitrogen 10 mg/dL (8-24); Bun/Creatinine Ratio 21.6 (12.0-20.0); CO2, Blood 29 mmol/L (21-32); Calcium, Blood 7.9 mg/dL (8.5-10.1); Chloride, Blood 109 mmol/L (98-108); Creatinine, Blood 0.46 mg/dL (0.60-1.20); Glomerular Filtration Rate >60 (60-); Glucose, Blood 104 mg/dL (70-99); Potassium, Blood 4.2 mmol/L (3.5-5.5); Sodium, Blood 142 mmol/L (136-145)
--- NOTE | 2019-04-08 06:49 | NUR ---
SHIFT SUMMARY PT IS A 73 Y/O MALE, ADMITTED FOR SEPSIS. HE IS A&O X 2-3, THOUGH MORE CONFUSED THIS AM COMPARED TO THE BEDTIME. PT C/O A HEADACHE, AND WAS MEDICATED ONCE WITH PRN TYLENOL. HE ALSO REPORTED INDIGESTION, AND WAS MEDICATED WITH PRN MAALOX PLUS. NO S/O SOB. WOUND DRESSINGS CHANGED DURING THE NIGHT. VITAL SIGNS STABLE. PT RECEIVED NS @ 100 ML/HR THROUGH THE NIGHT. NO OTHER ACUTE CHANGES IN PT CONDITION NOTED. WILL CONTINUE TO MONITOR AND TREAT PER EMAR UNTIL HAND OFF TO DAY SHIFT RN.
--- NOTE | 2019-04-08 17:05 | NUR ---
PT IS ALERT, FORGETFULL AND CONFUSED AT TIMES, THE PT APPEARS TO BE BREATHINNG EASLIY ON RA, EXTENSIVE WOUND CARE WAS DONE ON THE PT WITH THE HELP FROM THE YARD PILOT MATILDA, PICTURES AND MEASURMENTS WERE TAKEN, PTS COLOSTOMY APPLIANCE WAS CHANGED, THE PT TOLERATED THE PROCEDURE WELL, THE PT WAS MEDICATED FOR CONROY PAIN X1 TODAY AND LEFT SHOULDER PAIN X1 TODAY, PUBLIC EMPLOYMENT MEDIATOR IN THE ROOM NOW TALKING WITH THE PTS DAUGHTER CONCERNING DISCHARGE PLANNING, CALL LIGHT IN REACH, THE PT WAS REPOSITIONED T/O THE DAY
[2019-04-09 04:41] LABS: BASOPHILS ABSOLUTE AUTO 0.03 K/mm3 (0.00-0.23); BASOPHILS PERCENT AUTO 1 % (0-2); EOSINOPHILS ABSOLUTE AUTO 0.47 K/mm3 (0.00-0.68); EOSINOPHILS PERCENT AUTO 7 % (0-6); Hematocrit 27.8 % (37.0-53.0); Hemoglobin 8.2 g/dL (13.5-17.5); IMMATURE GRAN ABSOLUTE AUTO 0.03 K/mm3 (0.00-0.10); IMMATURE GRAN PERCENT AUTO 1 % (0-1); LYMPHOCYTES ABSOLUTE AUTO 1.61 K/mm3 (0.84-5.20); LYMPHOCYTES PERCENT AUTO 24 % (21-46); MONOCYTES ABSOLUTE AUTO 0.59 K/mm3 (0.16-1.47); MONOCYTES PERCENT AUTO 9 % (4-13); Mean Corpuscular HGB 26.5 pg (26.0-34.0); Mean Corpuscular HGB Conc 29.5 g/dL (31.5-36.5); Mean Corpuscular Volume 90 fL (80-100); Mean Platelet Volume 9.2 fL (9.1-12.4); NEUTROPHILS ABSOLUTE AUTO 3.87 K/mm3 (1.96-9.15); NEUTROPHILS PERCENT AUTO 59 % (41-73); Platelet Count 397 K/mm3 (150-400); RDW Coefficient Variation 15.1 % (11.7-14.2); RDW Standard Deviation 49.8 fL (35.1-46.3)
[2019-04-09 05:04] LABS: Anion Gap 4 mmol/L (6-16); Blood Urea Nitrogen 11 mg/dL (8-24); Bun/Creatinine Ratio 21.9 (12.0-20.0); CO2, Blood 31 mmol/L (21-32); Calcium, Blood 7.8 mg/dL (8.5-10.1); Chloride, Blood 109 mmol/L (98-108); Glomerular Filtration Rate >60 (60-); Glucose, Blood 97 mg/dL (70-99); Potassium, Blood 4.1 mmol/L (3.5-5.5); Sodium, Blood 144 mmol/L (136-145)
--- NOTE | 2019-04-09 06:24 | NUR ---
SHIFT SUMMARY PT HAS BEEN SLEEPING W/OUT COMPLAINT FOR MOST OF SHIFT. PT DRESSING ON ABD AND RICHARD AREAS. PT HAD A EPISODE OF HEADACHE THAT WAS TX WITH TYLENOL PER EMAR. PT CURRENTLY RESTING AND BREATHING EASY. CALL LIGHT IN REACH.
--- NOTE | 2019-04-09 15:36 | NUR ---
SHIFT SUMMARY PT WOUNDS CLEANED & REDRESSED THIS SHIFT. PT C/O HEARTBURN. DR. BARRIGA NOTIFIED & MEDS ORDERED. PT STATES SOME IMPORVEMENT AFTER GI COCKTAIL. NO OTHER CHAGNES IN ASSESSMENT AT THIS TIME. VSS. REPORT GIVEN TO BARTOLOME SWEENEY RN.
--- NOTE | 2019-04-09 17:48 | NUR ---
SHIFT SUMMARY RECEIVED REPORT FROM IRAIDA COVARRUBIAS AND ASSUMED CARE OF PT AT 1600. OX4 PARAPLEGIC WITH OSTOMY AND SUPRAPUBIC CATHETER C/O AND MEDICATED FOR GERD SYMPTOMS THIS EVENING. WOUNDS ALL OVER BODY SEE PICS IN CHART. RIGHT KNEE IMMOBILIZER IN PLACE AND ROTATOR CUFF TEAR TO RIGHT SHOULDER. DISCHARGE TO SNIF PLANNED FOR THURSDAY.
--- NOTE | 2019-04-10 03:59 | NUR ---
SHIFT SUMMARY PT HAD SOME INCREASED PAIN NOTED IN L SHOULDER AND ABD AREA. PT MEDICATED PER EMAR. PT HAS BEEN SLEEPING WELL. PT DRESSINGS CHANGED ORDERED. PT REPOSITIONED ORDERED. PT CURRENTLY SLEEPING AND BREATHING EASY. CALL LIGHT IN REACH.
[2019-04-10 05:38] LABS: BASOPHILS ABSOLUTE AUTO 0.04 K/mm3 (0.00-0.23); BASOPHILS PERCENT AUTO 1 % (0-2); EOSINOPHILS ABSOLUTE AUTO 0.44 K/mm3 (0.00-0.68); EOSINOPHILS PERCENT AUTO 7 % (0-6); Hematocrit 27.9 % (37.0-53.0); Hemoglobin 8.2 g/dL (13.5-17.5); IMMATURE GRAN ABSOLUTE AUTO 0.03 K/mm3 (0.00-0.10); IMMATURE GRAN PERCENT AUTO 0 % (0-1); LYMPHOCYTES ABSOLUTE AUTO 1.72 K/mm3 (0.84-5.20); LYMPHOCYTES PERCENT AUTO 26 % (21-46); MONOCYTES ABSOLUTE AUTO 0.65 K/mm3 (0.16-1.47); MONOCYTES PERCENT AUTO 10 % (4-13); Mean Corpuscular HGB 26.7 pg (26.0-34.0); Mean Corpuscular HGB Conc 29.4 g/dL (31.5-36.5); Mean Corpuscular Volume 91 fL (80-100); Mean Platelet Volume 9.5 fL (9.1-12.4); NEUTROPHILS ABSOLUTE AUTO 3.82 K/mm3 (1.96-9.15); NEUTROPHILS PERCENT AUTO 57 % (41-73); Platelet Count 407 K/mm3 (150-400); RDW Coefficient Variation 15.5 % (11.7-14.2); RDW Standard Deviation 51.2 fL (35.1-46.3); Red Blood Cell Count 3.07 M/mm3 (4.30-5.90)
[2019-04-10 06:12] LABS: Albumin, Blood 1.4 g/dL (3.4-5.0); Anion Gap 2 mmol/L (6-16); Blood Urea Nitrogen 10 mg/dL (8-24); Bun/Creatinine Ratio 21.8 (12.0-20.0); CO2, Blood 35 mmol/L (21-32); Calcium, Blood 8.5 mg/dL (8.5-10.1); Chloride, Blood 104 mmol/L (98-108); Creatinine, Blood 0.46 mg/dL (0.60-1.20); Glomerular Filtration Rate >60 (60-); Glucose, Blood 88 mg/dL (70-99); Potassium, Blood 4.3 mmol/L (3.5-5.5); Sodium, Blood 141 mmol/L (136-145)
[2019-04-10 06:17] LABS: Phosphorus, Blood 0.8 mg/dL (2.5-4.9)
--- NOTE | 2019-04-10 06:35 | NUR ---
*CRITICAL LAB* CRITICAL PHOS.- 0.8, CALLED DR. HENRY. PROVIDER STATED HE WILL ORDER APPROPIATE REPLACEMENT FOR PT.
--- NOTE | 2019-04-10 16:39 | NUR ---
CALLED DEVON PT'S DAUGHTER TO INFORM HER OF PT TRANSFER TO ICU 10
--- NOTE | 2019-04-10 17:02 | NUR ---
SHIFT SUMMARY OX3 CONFUSED AT TIMES. ALL WOUNDS CLEANSED AND REDRESSED TODAY; SKIN APPEARS TO BE IMPROVING SLIGHTLY. TURN Q 2 HOURS. C/O HEADACHE AND MEDICATED X2 PT STATED RELIEF. DISCHARGE PLANNED TOMORROW FOR REHAB.
--- NOTE | 2019-04-11 04:02 | NUR ---
SHIFT SUMMARY- PT. A&OX3, FORGETFUL AT TIMES. PT. IS A PARAPLEGIC, WITH SUPRAPUBIC CATHETER IN PLACE AND COLOSTOMY TO THE LT SIDE. C/O HEADACHE X1. MEDICATED WITH TYLENOL PER EMAR. PT. STATED GOOD RELIEF. PT. HAS EXTENSIVE WOUNDS T/O. PERFORMED DRESSING CHANGE PER ORDER, PT. TOLERATED WELL. PT. REPOSITIONED Q2HR AND PRN FOR COMFORT. VSS, DENIED ANY OTHER NEEDS T/O THE NIGHT. CALL LIGHT WITHIN REACH AND SIDE RAILS UP X2. WILL CONT TO MONITOR.
[2019-04-11 06:11] LABS: Albumin, Blood 1.3 g/dL (3.4-5.0); Anion Gap 3 mmol/L (6-16); Blood Urea Nitrogen 10 mg/dL (8-24); Bun/Creatinine Ratio 23.6 (12.0-20.0); CO2, Blood 34 mmol/L (21-32); Calcium, Blood 7.7 mg/dL (8.5-10.1); Chloride, Blood 104 mmol/L (98-108); Creatinine, Blood 0.42 mg/dL (0.60-1.20); Glomerular Filtration Rate >60 (60-); Glucose, Blood 134 mg/dL (70-99); Phosphorus, Blood 3.7 mg/dL (2.5-4.9); Potassium, Blood 4.5 mmol/L (3.5-5.5); Sodium, Blood 141 mmol/L (136-145)
--- NOTE | 2019-04-11 12:37 | NUR ---
PT WAS DCD TO [facility]. PT WAS TRANSPORTED VIA MEDICAL TRANSPORT ON STRETCHER. DC ORDERS AND HARD RX SENT WITH INDUSTRIAL CLEANING TECHNICIAN IN [place]. POWERGLIDE REMAINS IN PER CHARGE NURSE AND DC STRATEGIC MARKETING ASSOCIATE FOR IV THERAPY. ALL PERSONAL BELONGINGS WERE LABELED AND SENT WITH PT. PT WAS STABLE ON DC AND AGREEABLE TO TRANSFER TO SNF. REPORT WAS CALLED TO FLORI BONNER.
[2019-04-11] MEDS ORDERED: TUMS500 MG PO (12:52)
[2019-04-11] MEDS ORDERED: Oyster Shell C500 MG PO (12:52)
[2019-04-11] MEDS ORDERED: CUBICIN500 MG IV (12:54)
[2019-04-11] MEDS ORDERED: Vsl#3 Capsule1 EACH PO (12:55)
[2019-04-11] MEDS ORDERED: MERREM1 GM IV (12:56)
[2019-04-11] MEDS ORDERED: NYSTRITC TOP (12:57)
[2019-04-11] MEDS ORDERED: OMEPRAZOLE20 MG PO (12:58)
[2019-04-11] MEDS ORDERED: ONDA4ODT MM (12:59)
[2019-04-11] MEDS ORDERED: Silvadene20 GM TOP (12:59)
== END 2019-04-11 12:34 | DRG 698 ==
LOC: DELPENDDIS → ER 15:41 → ICUW 18:54 → PCU 04-06 14:16 → MEDS 04-07 13:15 → ENPENDDIS 04-09 11:00 → MEDS 04-11 12:34
PROVIDERS: Emergency Medicine; Family Medicine; Internal Medicine; Nurse Practitioner Acute Care; Pharmacist; ADMIT Family Medicine
PROC: 5A09357 Assistance with Respiratory Ventilation, Less than 24 Consecutive Hours, Continuous Positive Airway Pressure (ICD-10-PCS; principal; 2019-04-05)
DX: T83.510A Infection and inflammatory reaction due to cystostomy catheter, initial encounter (principal); L89.153 Pressure ulcer of sacral region, stage 3; L89.893 Pressure ulcer of other site, stage 3; A41.9 Sepsis, unspecified organism; G92 Toxic encephalopathy; J96.01 Acute respiratory failure with hypoxia; R65.20 Severe sepsis without septic shock; S82.141A Displaced bicondylar fracture of right tibia, initial encounter for closed fracture; G82.20 Paraplegia, unspecified; Z95.1 Presence of aortocoronary bypass graft; Z93.3 Colostomy status; Z87.891 Personal history of nicotine dependence; E86.0 Dehydration; N31.9 Neuromuscular dysfunction of bladder, unspecified; I10 Essential (primary) hypertension; I25.10 Atherosclerotic heart disease of native coronary artery without angina pectoris; B37.2 Candidiasis of skin and nail; E87.6 Hypokalemia; M19.012 Primary osteoarthritis, left shoulder; E88.09 Other disorders of plasma-protein metabolism, not elsewhere classified; B95.2 Enterococcus as the cause of diseases classified elsewhere; B96.5 Pseudomonas (aeruginosa) (mallei) (pseudomallei) as the cause of diseases classified elsewhere; Y92.9 Unspecified place or not applicable; T21.02XA Burn of unspecified degree of abdominal wall, initial encounter; T24.002A Burn of unspecified degree of unspecified site of left lower limb, except ankle and foot, initial encounter; X10.0XXA Contact with hot drinks, initial encounter
CPT/HCPCS: 36415; 36600; 51702; 70450; 71045; 73030; 73130; 73590; 80048; 80053; 80069; 80202; 81001; 82010; 82803; 83605; 83735; 84134; 85025; 87040; 87077; 87086; 87186; 93005; 93010; 93971; 94660; 94762; 96361; 96365; 96375; 99285-25; A9270; C1751; J0692; J0696; J0878; J1650; J2185; J2405; J2543; J3010; J3370; J3480; J7030; J7050; J7060

== ENCOUNTER 2019-04-12 22:38 | Observation (INO) | payer OTHER, MEDICARE ==
[~2019-04-12] VITALS: Ht 172.7 cm; Wt 89.0 kg
[~2019-04-12 22:38] MED LIST changes: +ACET500 PO; +ARTIFICIAL TEAR15 M1 BOTHEYES; +B Complex-Foli1 EACH PO; +CENTRUM SILVER1 EAC2 PO; +CUBICIN500 MG IV; +GABA400 PO; +IODOSORB TOP; +LIDOCAINE5 GM TOP; +MERREM1 GM IV; +METO25ER PO; +NYSTRITC TOP; +OMEPRAZOLE20 MG PO; +ONDA4ODT MM; +Oyster Shell C500 MG PO; +Silvadene20 GM TOP; +THERA-D2000 UNIT PO; +TUMS500 MG PO; +Vsl#3 Capsule1 EACH PO
[2019-04-12 22:57] LABS: BASOPHILS ABSOLUTE AUTO 0.03 K/mm3 (0.00-0.23); BASOPHILS PERCENT AUTO 1 % (0-2); EOSINOPHILS ABSOLUTE AUTO 0.42 K/mm3 (0.00-0.68); EOSINOPHILS PERCENT AUTO 7 % (0-6); Hematocrit 25.6 % (37.0-53.0); Hemoglobin 7.6 g/dL (13.5-17.5); IMMATURE GRAN ABSOLUTE AUTO 0.02 K/mm3 (0.00-0.10); IMMATURE GRAN PERCENT AUTO 0 % (0-1); LYMPHOCYTES ABSOLUTE AUTO 1.33 K/mm3 (0.84-5.20); LYMPHOCYTES PERCENT AUTO 21 % (21-46); MONOCYTES ABSOLUTE AUTO 0.78 K/mm3 (0.16-1.47); MONOCYTES PERCENT AUTO 12 % (4-13); Mean Corpuscular HGB 26.3 pg (26.0-34.0); Mean Corpuscular HGB Conc 29.7 g/dL (31.5-36.5); Mean Corpuscular Volume 89 fL (80-100); Mean Platelet Volume 9.3 fL (9.1-12.4); NEUTROPHILS ABSOLUTE AUTO 3.73 K/mm3 (1.96-9.15); NEUTROPHILS PERCENT AUTO 59 % (41-73); Platelet Count 417 K/mm3 (150-400); RDW Standard Deviation 51.8 fL (35.1-46.3); Red Blood Cell Count 2.89 M/mm3 (4.30-5.90); White Blood Cell Count 6.31 K/mm3 (4.00-11.30)
[2019-04-12 23:18] LABS: Alanine Aminotransfer (ALT/SGP 19 U/L (12-78); Albumin, Blood 1.4 g/dL (3.4-5.0); Albumin/Globulin Ratio 0.3 (0.8-1.8); Alk Phos 214 U/L (50-136); Anion Gap 4 mmol/L (6-16); Aspartate Aminotrans (AST/SGOT 22 U/L (12-37); Bilirubin, Total 0.1 mg/dL (0.1-1.0); Blood Urea Nitrogen 12 mg/dL (8-24); Bun/Creatinine Ratio 23.6 (12.0-20.0); CO2, Blood 31 mmol/L (21-32); Calcium, Blood 6.8 mg/dL (8.5-10.1); Chloride, Blood 105 mmol/L (98-108); Creatinine, Blood 0.51 mg/dL (0.60-1.20); Globulin, Blood 4.8 g/dL (2.2-4.0); Glomerular Filtration Rate >60 (60-); Glucose, Blood 97 mg/dL (70-99); Potassium, Blood 4.6 mmol/L (3.5-5.5); Sodium, Blood 140 mmol/L (136-145); Total Protein, Blood 6.2 g/dL (6.4-8.2)
[2019-04-13] MEDS ORDERED: ACET325 PO (04:59)
--- NOTE | 2019-04-13 06:12 | NUR ---
SHIFT SUMMARY PT ADMISTTED TO THE UNTI FROM THE ER. PT APPEARS TO BE A&O X3 WITH OCCASIONAL PERIODS OF CONFUSION. REORIENTS QUICKLY, HE IS ON ROOM AIR. LUNG SOUNDS ARE DIM IN THE BASES. MULTIPLE WOUNDS WERE FOUND ALL OVER HIS BODY, IN VARIOUS STAGES OF HEALING, PT HAS PRESSURE ULCERS & COLON TO IS ABD/GROIN. ALL PREVIOUS DRSG'S WERE CHANGED, PICTURES WERE TAKEN AND PLACED IN THE CHART. PT TOLERATED THIS WELL WITH NO C/O PAIN. Q2 TURNS INITIATED. 2ND UNIT OF PRBC'S WAS STARTED, BP SLOWLY IMPROVING. CALL LIGHT IN REACH, WCTM AND REPORT TO DAY RN
[2019-04-13 08:21] LABS: BASOPHILS ABSOLUTE AUTO 0.04 K/mm3 (0.00-0.23); BASOPHILS PERCENT AUTO 1 % (0-2); EOSINOPHILS ABSOLUTE AUTO 0.42 K/mm3 (0.00-0.68); EOSINOPHILS PERCENT AUTO 7 % (0-6); Hemoglobin 9.1 g/dL (13.5-17.5); IMMATURE GRAN ABSOLUTE AUTO 0.02 K/mm3 (0.00-0.10); IMMATURE GRAN PERCENT AUTO 0 % (0-1); LYMPHOCYTES ABSOLUTE AUTO 1.46 K/mm3 (0.84-5.20); LYMPHOCYTES PERCENT AUTO 25 % (21-46); MONOCYTES ABSOLUTE AUTO 0.81 K/mm3 (0.16-1.47); MONOCYTES PERCENT AUTO 14 % (4-13); Mean Corpuscular HGB 26.2 pg (26.0-34.0); Mean Corpuscular HGB Conc 30.3 g/dL (31.5-36.5); Mean Corpuscular Volume 87 fL (80-100); NEUTROPHILS ABSOLUTE AUTO 3.03 K/mm3 (1.96-9.15); NEUTROPHILS PERCENT AUTO 52 % (41-73); Platelet Count 384 K/mm3 (150-400); RDW Coefficient Variation 16.1 % (11.7-14.2); RDW Standard Deviation 50.4 fL (35.1-46.3); Red Blood Cell Count 3.47 M/mm3 (4.30-5.90); White Blood Cell Count 5.78 K/mm3 (4.00-11.30)
[2019-04-13 08:35] LABS: Anion Gap 4 mmol/L (6-16); Blood Urea Nitrogen 10 mg/dL (8-24); Bun/Creatinine Ratio 20.4 (12.0-20.0); CO2, Blood 31 mmol/L (21-32); Calcium, Blood 6.4 mg/dL (8.5-10.1); Chloride, Blood 104 mmol/L (98-108); Creatinine, Blood 0.49 mg/dL (0.60-1.20); Glomerular Filtration Rate >60 (60-); Glucose, Blood 81 mg/dL (70-99); Potassium, Blood 4.4 mmol/L (3.5-5.5); Sodium, Blood 139 mmol/L (136-145)
--- NOTE | 2019-04-13 15:40 | NUR ---
DISCHARGE REPORT CALLED TO [place] AT [facility]. ALL QUESTIONS ANSWERED. PT LEFT VIA AMBULANCE GURNEY. POWERGLIDE WAS DISCONTINUED WITH CANULA INTACT. PRESSURE BANDAGE APPLIED. PT'S BELONGINGS GATHERED AND SENT WITH PT.
== END 2019-04-13 15:48 ==
LOC: ER 22:38 → PCU 22:39 → UNDODEPER 04-13 03:37 → PCU 04-13 15:48
PROVIDERS: Emergency Medicine; Nurse Practitioner Acute Care; ADMIT Hospitalist
DX: A41.9 Sepsis, unspecified organism (principal); T83.511A Infection and inflammatory reaction due to indwelling urethral catheter, initial encounter; Y83.1 Surgical operation with implant of artificial internal device as the cause of abnormal reaction of the patient, or of later complication, without mention of misadventure at the time of the procedure; R65.20 Severe sepsis without septic shock; N31.9 Neuromuscular dysfunction of bladder, unspecified; I10 Essential (primary) hypertension; E66.9 Obesity, unspecified; D64.9 Anemia, unspecified; M41.9 Scoliosis, unspecified; G82.20 Paraplegia, unspecified; I25.10 Atherosclerotic heart disease of native coronary artery without angina pectoris; L89.90 Pressure ulcer of unspecified site, unspecified stage; E86.0 Dehydration; F10.21 Alcohol dependence, in remission; G92 Toxic encephalopathy; M79.643 Pain in unspecified hand; G89.29 Other chronic pain; Z16.30 Resistance to unspecified antimicrobial drugs; Z95.1 Presence of aortocoronary bypass graft; Z93.3 Colostomy status; Z79.82 Long term (current) use of aspirin; Z79.899 Other long term (current) drug therapy; Z87.891 Personal history of nicotine dependence; Z68.30 Body mass index [BMI] 30.0-30.9, adult
CPT/HCPCS: 36430; 80048; 80053; 83880; 84100; 84145; 85025; 86850; 86900; 86901; 86923; 96365; 96366; 96374; 96375; 97110; 97162; 97166; 99285-25; A9270; G0378; J0878; J1644; J2185; J2405; J7030; P9016

== ENCOUNTER 2019-07-05 16:48 | Emergency (ER) | payer MEDICARE ==
[~2019-07-05] VITALS: Ht 182.9 cm; Wt 113.4 kg
[~2019-07-05 16:48] MED LIST changes: -ACET500 PO; -ARTIFICIAL TEAR15 M1 BOTHEYES; -Aspir 8181 MG PO; -GABA400 PO; -IODOSORB TOP; -LIDOCAINE5 GM TOP; -NYSTRITC TOP; -OMEPRAZOLE20 MG PO; -THERA-D2000 UNIT PO; -Vsl#3 Capsule1 EACH PO
[2019-07-05 17:38] LABS: PCO2 Arterial 57 mmHg (35-45); PO2 Arterial 120 mmHg (80-100); pH Blood Arterial 7.31 (7.35-7.45)
[2019-07-05 17:50] LABS: BASOPHILS ABSOLUTE AUTO 0.06 K/mm3 (0.00-0.23); BASOPHILS PERCENT AUTO 1 % (0-2); EOSINOPHILS ABSOLUTE AUTO 0.53 K/mm3 (0.00-0.68); EOSINOPHILS PERCENT AUTO 8 % (0-6); Hematocrit 35.1 % (37.0-53.0); Hemoglobin 10.6 g/dL (13.5-17.5); IMMATURE GRAN ABSOLUTE AUTO 0.01 K/mm3 (0.00-0.10); IMMATURE GRAN PERCENT AUTO 0 % (0-1); LYMPHOCYTES ABSOLUTE AUTO 1.92 K/mm3 (0.84-5.20); LYMPHOCYTES PERCENT AUTO 29 % (21-46); MONOCYTES ABSOLUTE AUTO 0.47 K/mm3 (0.16-1.47); MONOCYTES PERCENT AUTO 7 % (4-13); Mean Corpuscular HGB Conc 30.2 g/dL (31.5-36.5); Mean Corpuscular Volume 93 fL (80-100); NEUTROPHILS ABSOLUTE AUTO 3.63 K/mm3 (1.96-9.15); NEUTROPHILS PERCENT AUTO 55 % (41-73); Platelet Count 348 K/mm3 (150-400); RDW Coefficient Variation 14.8 % (11.7-14.2); RDW Standard Deviation 50.8 fL (35.1-46.3); Red Blood Cell Count 3.79 M/mm3 (4.30-5.90); White Blood Cell Count 6.62 K/mm3 (4.00-11.30)
[2019-07-05 18:04] LABS: Albumin, Blood 2.5 g/dL (3.4-5.0); Anion Gap 4 mmol/L (6-16); Blood Urea Nitrogen 25 mg/dL (8-24); CO2, Blood 28 mmol/L (21-32); Calcium, Blood 8.7 mg/dL (8.5-10.1); Chloride, Blood 107 mmol/L (98-108); Glucose, Blood 97 mg/dL (70-99); Potassium, Blood 4.1 mmol/L (3.5-5.5); Sodium, Blood 139 mmol/L (136-145)
[2019-07-05 18:08] LABS: Alanine Aminotransfer (ALT/SGP 16 U/L (12-78); Albumin/Globulin Ratio 0.5 (0.8-1.8); Alk Phos 179 U/L (50-136); Aspartate Aminotrans (AST/SGOT 15 U/L (12-37); Bilirubin, Total 0.2 mg/dL (0.1-1.0); Bun/Creatinine Ratio 50.5 (12.0-20.0); Globulin, Blood 4.7 g/dL (2.2-4.0); Glomerular Filtration Rate >60 (60-); Total Protein, Blood 7.2 g/dL (6.4-8.2)
[2019-07-05 18:10] LABS: International Normalized Ratio 0.93
[2019-07-05 18:21] LABS: Free Thyroxine 0.97 ng/dL (0.70-1.60); Magnesium, Blood 1.9 mg/dL (1.6-2.4)
[2019-07-05 18:23] LABS: Thyroid Stimulating Hormone 0.628 uIU/mL (0.360-4.800); Triiodothyronine, Free 1.73 pg/mL (2.18-3.98)
[2019-07-05 18:56] LABS: Bilirubin, Urine Neg (Neg); Blood, Urine 2+ (Neg); Glucose Qualitative, Urine Neg (Neg); Ketones, Urine Neg (Neg); Leukocyte Esterase, Urine 3+ (Neg); Nitrite, Urine Neg (Neg); Protein, Urine 1+ (Neg); Urobilinogen, Urine NORM (Normal); pH, Urine 6.5 (5.0-8.0)
[2019-07-05] MEDS ORDERED: THERA-D2000 UNIT PO (19:19)
[2019-07-05] MEDS ORDERED: Aspir 8181 MG PO (19:19)
[2019-07-05] MEDS ORDERED: ASPERCREME76.5 GM TOP (19:21)
[2019-07-05] MEDS ORDERED: IODOSORB TOP (19:22)
[2019-07-05] MEDS ORDERED: ACET325 PO (19:23)
[2019-07-05] MEDS ORDERED: Athenol325 MG PO (19:24)
[2019-07-05 19:25] LABS: Appearance, Urine Hazy (Clear); Color, Urine Yellow (P-Yellow); White Blood Cells, Urine TNTC /hpf (0-5)
[2019-07-05] MEDS ORDERED: GABA400 PO (19:25)
[2019-07-05 19:26] LABS: Bacteria Many /hpf; Squamous Epithelial Cells Few /hpf (Few)
[2019-07-05] MEDS ORDERED: Artificial Tear15 ML BOTHEYES (19:27)
[2019-07-05] MEDS ORDERED: OMEPRAZOLE20 MG PO (19:28)
[2019-07-05] MEDS ORDERED: Vsl#3 Capsule1 EACH PO (19:28)
[2019-07-05] MEDS ORDERED: NYSTRITC TOP (19:28)
[2019-07-05] MEDS ORDERED: LIDOCAINE5 GM TOP (19:30)
[2019-07-05] MEDS ORDERED: Excedrin Extra1 EACH PO (19:31)
[2019-07-05 19:55] LABS: U Amphetamine Screen Not Detected; U Barbituate Screen Not Detected; U Benzodiazapine Screen Not Detected; U Cocaine Screen Not Detected; U Methadone Screen Not Detected; U Methamphetamine Screen Not Detected; U Opiates Screen Not Detected
[2019-07-05 19:56] LABS: U Buprenorphine Screen Not Detected; U Cannabinoids Screen DETECTED; U Oxycodone Screen Not Detected; U Propoxyphene Screen Not Detected
== END 2019-07-06 01:00 | disposition short-term general hospital (02) ==
LOC: ER 16:48 → ICUW 21:06 → ER 07-06 01:00
PROVIDERS: Emergency Medicine
DX: A41.9 Sepsis, unspecified organism (principal); R65.21 Severe sepsis with septic shock; N39.0 Urinary tract infection, site not specified; G93.41 Metabolic encephalopathy; R00.1 Bradycardia, unspecified; R06.03 Acute respiratory distress; Z79.899 Other long term (current) drug therapy; Z79.82 Long term (current) use of aspirin; I10 Essential (primary) hypertension; Z86.73 Personal history of transient ischemic attack (TIA), and cerebral infarction without residual deficits; Z87.891 Personal history of nicotine dependence
CPT/HCPCS: 31500; 36600; 70450; 71045; 72193; 74177; 80053; 81001; 82140; 82803; 82947; 83605; 83735; 84439; 84443; 84481; 84484; 85025; 85610; 85730; 87077; 87086; 87186; 93005; 93010; G0480; J0330; J0461; J0610; J1610; J2185; J2310; J2543; J2704; J3370; J7030; J7050; J7060; Q9967

== ENCOUNTER 2019-08-11 17:20 | Inpatient (IN) | payer OTHER, MEDICARE ==
[~2019-08-11] VITALS: Ht 170.2 cm; Wt 90.7 kg
[~2019-08-11 17:20] MED LIST changes: +ACET325 PO; +ASPERCREME76.5 GM TOP; +Artificial Tear15 ML BOTHEYES; +Athenol325 MG PO; +Excedrin Extra1 EACH PO; +GABA400 PO; +IODOSORB TOP; +LIDOCAINE5 GM TOP; +NYSTRITC TOP; +THERA-D2000 UNIT PO; +Vsl#3 Capsule1 EACH PO
[2019-08-11 17:56] LABS: BASOPHILS ABSOLUTE AUTO 0.03 K/mm3 (0.00-0.23); BASOPHILS PERCENT AUTO 0 % (0-2); EOSINOPHILS ABSOLUTE AUTO 0.07 K/mm3 (0.00-0.68); EOSINOPHILS PERCENT AUTO 1 % (0-6); Hematocrit 36.9 % (37.0-53.0); Hemoglobin 11.1 g/dL (13.5-17.5); IMMATURE GRAN ABSOLUTE AUTO 0.02 K/mm3 (0.00-0.10); IMMATURE GRAN PERCENT AUTO 0 % (0-1); LYMPHOCYTES ABSOLUTE AUTO 1.14 K/mm3 (0.84-5.20); LYMPHOCYTES PERCENT AUTO 12 % (21-46); MONOCYTES PERCENT AUTO 8 % (4-13); Mean Corpuscular HGB 27.4 pg (26.0-34.0); Mean Corpuscular HGB Conc 30.1 g/dL (31.5-36.5); Mean Corpuscular Volume 91 fL (80-100); Mean Platelet Volume 10.1 fL (9.1-12.4); NEUTROPHILS ABSOLUTE AUTO 7.68 K/mm3 (1.96-9.15); NEUTROPHILS PERCENT AUTO 79 % (41-73); Platelet Count 412 K/mm3 (150-400); RDW Coefficient Variation 14.5 % (11.7-14.2); RDW Standard Deviation 48.5 fL (35.1-46.3); Red Blood Cell Count 4.05 M/mm3 (4.30-5.90); White Blood Cell Count 9.74 K/mm3 (4.00-11.30)
[2019-08-11 18:10] LABS: International Normalized Ratio 1.08; Prothrombin Time Results 11.5 Sec (9.7-11.5)
[2019-08-11 18:17] LABS: Alanine Aminotransfer (ALT/SGP 18 U/L (12-78); Albumin, Blood 2.5 g/dL (3.4-5.0); Albumin/Globulin Ratio 0.5 (0.8-1.8); Alk Phos 128 U/L (50-136); Anion Gap 7 mmol/L (6-16); Aspartate Aminotrans (AST/SGOT 18 U/L (12-37); Bilirubin, Total 0.6 mg/dL (0.1-1.0); Blood Urea Nitrogen 13 mg/dL (8-24); Bun/Creatinine Ratio 44.1 (12.0-20.0); CO2, Blood 25 mmol/L (21-32); Calcium, Blood 8.3 mg/dL (8.5-10.1); Chloride, Blood 107 mmol/L (98-108); Globulin, Blood 5.2 g/dL (2.2-4.0); Glomerular Filtration Rate >60 (60-); Glucose, Blood 119 mg/dL (70-99); Potassium, Blood 3.8 mmol/L (3.5-5.5); Sodium, Blood 139 mmol/L (136-145); Total Protein, Blood 7.7 g/dL (6.4-8.2)
[2019-08-11 19:09] LABS: Source, Urine Catheter
[2019-08-11 19:14] LABS: Bilirubin, Urine Neg (Neg); Blood, Urine 5+ (Neg); Glucose Qualitative, Urine Neg (Neg); Ketones, Urine 2+ (Neg); Leukocyte Esterase, Urine 3+ (Neg); Nitrite, Urine Neg (Neg); Protein, Urine 3+ (Neg); Specific Gravity, Urine 1.015 (1.003-1.022); Urobilinogen, Urine NORM (Normal)
[2019-08-11 19:20] LABS: Appearance, Urine Cloudy (Clear); Color, Urine Yellow (P-Yellow)
[2019-08-11 19:22] LABS: Red Blood Cells, Urine 25-50 /hpf (0-2); Squamous Epithelial Cells Few /hpf (Few); White Blood Cells, Urine TNTC /hpf (0-5)
[2019-08-11 19:24] LABS: Amorphous Light (0-Heavy); Bacteria Many /hpf; Mucus Light (0-Heavy)
[2019-08-11] MEDS ORDERED: ATORVASTATIN CA20 MG PO (19:40)
[2019-08-11] MEDS ORDERED: Aspir 8181 MG PO (19:40)
[2019-08-11] MEDS ORDERED: OMEPRAZOLE20 MG PO (19:40)
[2019-08-11] MEDS ORDERED: AMLODIPINE BESYL5 MG PO (19:40)
[2019-08-11 22:18] LABS: Adenovirus Not Detected (NOT DETECT); Bordetella pertussis Not Detected (NOT DETECT); Chlamydophila pneumoniae Not Detected (NOT DETECT); Coronavirus 229E Not Detected (NOT DETECT); Coronavirus HKU1 Not Detected (NOT DETECT); Coronavirus NL63 Not Detected (NOT DETECT); Coronavirus OC43 Not Detected (NOT DETECT); Human Metapneumovirus Not Detected (NOT DETECT); Human Rhinovirus/Enterovirus Not Detected (NOT DETECT); Influenza A/2009-H1 Not Detected (NOT DETECT); Influenza A/H1 Not Detected (NOT DETECT); Influenza A/H3 Not Detected (NOT DETECT); Influenza B Not Detected (NOT DETECT); Mycoplasma pneumoniae Not Detected (NOT DETECT); Parainfluenza Virus 1 Not Detected (NOT DETECT); Parainfluenza Virus 2 Not Detected (NOT DETECT); Parainfluenza Virus 3 Not Detected (NOT DETECT); Parainfluenza Virus 4 Not Detected (NOT DETECT); Respiratory Syncytial Virus Not Detected (NOT DETECT)
--- NOTE | 2019-08-12 | NUR ---
DR. KHAN BEDSIDE WITH PATIENT; ORDERS PENDING.
--- NOTE | 2019-08-12 01:07 | NUR ---
ASSUMED CARE OF PATIENT AT [facility] FROM ED IRAIDA RODARTE. PATIENT ARRIVED TO UNIT VIA STRETCHER; TRANSFER VIA SLIDE SHEET FROM ED TO PCU STRETCHER. PATIENT ALERT AND ORIENTED; IRRITABLE AT TIMES. ADMISSION COMPLETE. NO FAMILY MEMBERS PRESENT WITH PATIENT. PATIENT DENIES PAIN, DIZZINESS OR NAUSEA. PARAPLEGIC. PATIENT REPORTS HE LIVES WITH SON WHO IS HIS CAREGIVER. PATIENT IS PALE, L/S COARSE, HARSE NONPRODUCTIVE COUGH. MULTIPLE PRESSURE ULCERS; CLEANED AND DRESSED; PHOTOS TAKEN. ST ON TELE; OXYGEN SATURATION ABOVE 90% ON 3LPM VIA NC. PIV S/L. Q2H TURNS. DROPLET ISOLATION TO R/O COVID. PATIENT CURRENTLY RESTING IN BED; CALL LIGHT IN REACH; BED IN LOWEST POSISTION; BED ALARM ON; WILL CONTINUE TO MONITOR AND ASSESS UNTIL END OF SHIFT.
[2019-08-12 03:57] LABS: Hematocrit 32.6 % (37.0-53.0); Hemoglobin 9.7 g/dL (13.5-17.5); Mean Corpuscular HGB 26.9 pg (26.0-34.0); Mean Corpuscular HGB Conc 29.8 g/dL (31.5-36.5); Mean Corpuscular Volume 90 fL (80-100); Mean Platelet Volume 9.9 fL (9.1-12.4); Platelet Count 380 K/mm3 (150-400); RDW Coefficient Variation 14.4 % (11.7-14.2); Red Blood Cell Count 3.61 M/mm3 (4.30-5.90); White Blood Cell Count 8.66 K/mm3 (4.00-11.30)
[2019-08-12 04:21] LABS: Alanine Aminotransfer (ALT/SGP 16 U/L (12-78); Albumin, Blood 2.2 g/dL (3.4-5.0); Albumin/Globulin Ratio 0.5 (0.8-1.8); Alk Phos 106 U/L (50-136); Anion Gap 4 mmol/L (6-16); Aspartate Aminotrans (AST/SGOT 11 U/L (12-37); Bilirubin, Total 0.8 mg/dL (0.1-1.0); Blood Urea Nitrogen 14 mg/dL (8-24); CO2, Blood 31 mmol/L (21-32); Calcium, Blood 7.9 mg/dL (8.5-10.1); Chloride, Blood 108 mmol/L (98-108); Creatinine, Blood 0.52 mg/dL (0.60-1.20); Globulin, Blood 4.7 g/dL (2.2-4.0); Glomerular Filtration Rate >60 (60-); Glucose, Blood 113 mg/dL (70-99); Sodium, Blood 143 mmol/L (136-145); Total Protein, Blood 6.9 g/dL (6.4-8.2)
--- NOTE | 2019-08-12 06:16 | NUR ---
NO ACUTE CHANGES TO REPORT. PATIENT SLEPT ABOUT EIGHT HOURS LAST NIGHT. VSS. OXYGEN TITRATED DOWN TO 1LPM VIA NC. WILL CONTINUE TO MONITOR AND ASSESS UNTIL END OF SHIFT.
--- NOTE | 2019-08-12 15:58 | NUR ---
TRANSFER SUMMARY PATIENT ALERT AND ORIENTED TO SELF, LOCATION AND SOME SITUATION. PATIENT DROWSY AND REPORTS THAT HE JUST WANTS TO REST. PATIENT TURNED Q2 HOUR WHICH HE IS HESITANT TO DO SO - PATIENT ENCOURAGED TO TURN Q2 AND PERFORM HYGIENE CARE. PATIENT HAS REFUSED SUCTION X3 THIS SHIFT FROM THIS RN. PATIENT HAS OSTOMY IN PLACE THAT HAS NO STOOL NOTED THIS SHIFT AND SUPRA PUBIC LOYOLA PRODUCING CLOUDY URINE TO GRAVITY. PATIENTS SON CALL AND UPDATED STAFF THAT HE WAS PLANNING ON TAKING PATIENT HOME UPON DISCHARGE BECAUSE [place] IS COST[place] PER PATIENTS SON. PATIENTS MED NO TELE. NO S/SX OF DISTRESS NOTED T/O SHIFT. ENCOURAGED PATIENT TO SEEK PALLIATIVE OPTIONS FOR COMFORT AND GOING HOME PER HIS REQUEST. REPORTED TO MEDICAL FLOOR RN SETH MATHEW. PATIENT LEFT UNIT VIA UNIT BED WITH BELONGINGS SENT.
--- NOTE | 2019-08-12 19:22 | NUR ---
alert orintate to self and family as well as location, needs help even with small things, call light in reach, saline locked, bsr shared with noc nurse and pt
[2019-08-13 01:32] LABS: BASOPHILS ABSOLUTE AUTO 0.04 K/mm3 (0.00-0.23); BASOPHILS PERCENT AUTO 1 % (0-2); EOSINOPHILS ABSOLUTE AUTO 0.11 K/mm3 (0.00-0.68); EOSINOPHILS PERCENT AUTO 1 % (0-6); Hematocrit 33.3 % (37.0-53.0); Hemoglobin 10.1 g/dL (13.5-17.5); IMMATURE GRAN ABSOLUTE AUTO 0.03 K/mm3 (0.00-0.10); IMMATURE GRAN PERCENT AUTO 0 % (0-1); LYMPHOCYTES ABSOLUTE AUTO 1.06 K/mm3 (0.84-5.20); LYMPHOCYTES PERCENT AUTO 13 % (21-46); MONOCYTES ABSOLUTE AUTO 0.65 K/mm3 (0.16-1.47); MONOCYTES PERCENT AUTO 8 % (4-13); Mean Corpuscular HGB 27.4 pg (26.0-34.0); Mean Corpuscular HGB Conc 30.3 g/dL (31.5-36.5); Mean Corpuscular Volume 91 fL (80-100); Mean Platelet Volume 9.5 fL (9.1-12.4); NEUTROPHILS ABSOLUTE AUTO 6.03 K/mm3 (1.96-9.15); NEUTROPHILS PERCENT AUTO 76 % (41-73); Platelet Count 367 K/mm3 (150-400); RDW Coefficient Variation 14.3 % (11.7-14.2); RDW Standard Deviation 47.7 fL (35.1-46.3); Red Blood Cell Count 3.68 M/mm3 (4.30-5.90); White Blood Cell Count 7.92 K/mm3 (4.00-11.30)
[2019-08-13 01:51] LABS: Alanine Aminotransfer (ALT/SGP 11 U/L (12-78); Albumin, Blood 2.1 g/dL (3.4-5.0); Albumin/Globulin Ratio 0.4 (0.8-1.8); Alk Phos 106 U/L (50-136); Anion Gap 11 mmol/L (6-16); Aspartate Aminotrans (AST/SGOT 10 U/L (12-37); Bilirubin, Total 0.5 mg/dL (0.1-1.0); Blood Urea Nitrogen 8 mg/dL (8-24); Bun/Creatinine Ratio 22.2 (12.0-20.0); CO2, Blood 24 mmol/L (21-32); Chloride, Blood 109 mmol/L (98-108); Creatinine, Blood 0.36 mg/dL (0.60-1.20); Globulin, Blood 4.9 g/dL (2.2-4.0); Glomerular Filtration Rate >60 (60-); Glucose, Blood 82 mg/dL (70-99); Potassium, Blood 3.5 mmol/L (3.5-5.5); Sodium, Blood 144 mmol/L (136-145)
[2019-08-13 01:59] LABS: Vancomycin, Trough 22.6 ug/mL (5.0-10.0)
--- NOTE | 2019-08-13 05:37 | NUR ---
SHIFT SUMMARY PT HAS HAD NO ACUTE CHANGES THIS SHIFT, A&O TO SITUATION, PT IRRITABLE AT SHIFT START BUT W/CONVINCING PT IS COOPERATIVE, REPOS Q2, NO OUTPUT IN COLOSTOMY THIS SHIFT, LOYOLA DRAINING DARK YELLOW URINE, NPO ORDER STILL IN PLACE ON PT- NO PO MEDS ADMIN THIS SHIFT, REC ORDER TO RESTART FLUIDS @75/HR, PT SLEEPING AT THIS TIME, CALL LIGHT IN REACH, WILL CONT TO MONITOR UNTIL REPORT GIVEN TO DAY RN.
--- NOTE | 2019-08-13 07:50 | NUR ---
received report from noc nurse, also report from lab clearing pt of covid remains in contact isolation for urine, remains alert but not accepting of dx or current situation, denies sores and declined to be repositioned, adjusted pillows, call light in reach, medicated as prescribed, bed in low position, ls course, nonproductive cough, weak movement of hands, none in feet, profusion < 3 pulse light, perrl, hypoactive abdmn, will continue to monitor colostomy but since NPO may not have out put, medicated but only non po medication.
--- NOTE | 2019-08-13 11:02 | NUR ---
daughter called wanted to make sure dr knew her father had been coughing since he was intubated up in [place] a week ago, also that at that time he started having pain in his right hand and chronic pain in l shoulder, states lethargy is a change in condition from prior to intubation, ulysses stated she could have information prior to nurse talking to pt
--- NOTE | 2019-08-13 19:32 | NUR ---
alert at baseline, call light in reach, npo, rm air, abx infusing, bed in lowposition, report shared with pt and noc shift, asked them to find out why still npo
--- NOTE | 2019-08-14 03:40 | NUR ---
SHIFT SUMMARY PATIENT HAD NO ACUTE CHANGES OBSERVED THIS SHIFT. AXOX 3 AND BEDBOUND PARAPLEGIC. HOSPITALIST MACRINA NUT THREADER CHANGED DIET FROM NPO TO CARDIAC. PIV REMAINS INTACT. IV ABX INFUSED. NS INFUSING AT 75 mL/HR. Q 2 TURNS. COLOSTOMY RUQ AND SUPRA PUBIC LOYOLA PATENT AND DRAINING. DENIES PAIN, SOB, AND N/V. VSS/AFEBRILE. CALL LIGHT IN REACH. BED IN LOWEST POSITION. WILL CONTINUE TO MONITOR UNTIL DAY SHIFT NURSE ASSUMES CARE.
--- NOTE | 2019-08-14 13:39 | NUR ---
PT resting in bed. noted mild dyspnea and coarse cough. Pt states until today he had had more headaches recently, finally better today. He is have difficulty tracking conversation and answering questions. He is hard of hearing and fatigued. Asked him what he needs started talking about how much stress he is to his son and hopes his health is ok so he can stay living with him. He feels fearful and isolated in hospital he hates being poked and prodded. Asked if he wants to go home he became distraught that we wanted him to leave. Reassured him he needed to stay but we dont want to force him or stress him further. We discussed his living situation he is open to some inhome care. discussed pt with Pt she is going to work with him. Pt needs pt to do eval on caognive ability. Will have director of managed carehousing property manager his son to assess needs. pt would benefit from home health and bath aid. High risk fro readmission and failure to thrive. Reapitory function gets anyworse swollow may be compromised. kps score is 30%
--- NOTE | 2019-08-14 15:48 | NUR ---
SHIFT SUMMARY PT IS A/O X 2-3 AND IS A POOR HISTORIAN WITH CONFUSION. PT HAS BEEN REFUSING SOME BUT NOT ALL INTERVENTIONS AND DR MASCORRO IS AWARE. IV ABO WERE CHANGED DUE TO PTS REFUSALS OF LAB DRAWS. SUPRAPUBIC LOYOLA IS PATENT WELL COLOSTOMY. MULTIPLE WOUNDS WERE CLEANSED AND DRESSED. PALLIATIVE CARE IS NOW WORKING WITH PT. PT DID WORK WITH THERAPY TODAY BUT NEEDED ENCOURGEMENT TO DUE SO. PT IS ABLE TO MAKE HIS NEEDS KNOWN AND DOES CALL FOR HELP WHEN NEEDED. SPUTUM SAMPLE WAS NOT OBTAINED DUE TO WEAK COUGH AND INABILITY TO PRODUCE SAMPLE. PT IS RESTING IN BED WATCHING TV. CALL LIGHT IS IN REACH.
--- NOTE | 2019-08-14 21:50 | NUR ---
PATIENT NAUSEOUS AND IV ZOFRAN GIVEN PER EMAR. PATIENT RESTING WATCHING TV. CALL LIGHT IN REACH.
--- NOTE | 2019-08-15 03:41 | NUR ---
SHIFT SUMMARY PATIENT HAD NO ACUTE CHANGES OBSERVED. AXO 3 WITH CONFUSION AT TIMES. BEDBOUND. SUPRAPUBIC LOYOLA PATENT AND DRAINING. COLOSTOMY INTACT. PIV INTACT. IV ABX INFUSED. NAUSEOUS X ONE AND IV ZOFRAN GIVEN. PATIENT REPORTS RESOLVED. DENIES PAIN AND SOB. VSS/AFEBRILE. CALL LIGHT IN REACH. BED IN LOWEST POSITION. WILL CONTINUE TO MONITOR UNTIL DAY SHIFT NURSE ASSUMES CARE.
--- NOTE | 2019-08-15 06:34 | NUR ---
IMAGING IN FOR CXR-1 VIEW. PATIENT TOLERATED WELL.
--- NOTE | 2019-08-15 16:07 | NUR ---
SHIFT SUMMARY PT IS A/O X 2-3 WITH IMPROVED CLARITY FROM YESTERDAY. IV ABO INFUSED ORDERED WITH NO ISSUE. COLOSTOMY AND LOYOLA ARE PATENT. RECORDS REQUESTED FROM [facility] PER DR MASCORRO. PT HAS BEEN COMPLIANT WITH ALL OF HIS CARE TODAY. PT IS RESTING IN BED AND ABLE TO MAKE HIS NEEDS KNOWN. CALL LIGHT IS IN REACH.
--- NOTE | 2019-08-15 20:13 | NUR ---
2013-NOHEMY IS ALERT, BUT VERY WITHDRAWN. DOES NOT WANT TO INTERACT OR HAVE CONVERSATION. STATES HE WANTS TO BE LEFT ALONE. DOES FOLLOW INSTRUCTIONS.. LUNG SOUNDS ARE COURSE, DOES NOT HAVE A COUGH AT THIS TIME BUT HAS HAD ONE DURING THE DAY. MULTIPLE WOUND DRESSINGS NOTED TO ABDOMIN AROUND THE OSTOMY SITE, BOTH HEELS, AND BOTTOM. ALL ARE CLEAN DRY AND INTACT. DENIES PAIN AND DISCOMFORT. DENIES WANTING TO BE REPOSITONED. ASKED AGAIN TO BE LEFT ALONE. WILL CONTINUE TO MONITOR, CALL LIGHT IN REACH.
--- NOTE | 2019-08-16 05:44 | NUR ---
SHIFT SUMMARY: NOHEMY RESTED WELL LAST NIGHT, SLEEPING 90% OF THE SHIFT. HE WAS AOX3 BUT VERY WITHDRAWN WANTING TO BE LEFT TO SLEEP. UNABLE TO TELL CONFUSION DUE TO SLEEPING MOST OF SHIFT. BEDBOUND DUE TO PARAPLEGIA, POSITION CHANGE WAS ONLY WHEN HE ALLOWED US TO MOVE HIM. SUPRAPUBIC LOYOLA PATENT AND DRAINING. COLOSTOMY REMAINED INTACT. ALL DRESSINGS INTACT AND DRY. IV PATENT AND ABX INFUSED. VSS/AFEBRILE. NO PAIN OR SOB NOTED. LUNG SOUNDS COURSE THROUGHOUT. NO COUGH. CALL LIGHT REMAINED IN REACH. NO OTHER CHANGES TO REPORT.
--- NOTE | 2019-08-16 15:20 | NUR ---
SHIFT SUMMARY PT IS A/O X 2-3 AND CONTINUES TO BE MORE CLEAR. HIS LUNGS SOUNDS ARE NOW CLEAR WITH NO SOB. IV ABO INFUSED ORDERED WITH NO ISSUE. COLOSTOMY AND LOYOLA REMAIN PATENT. DRESSINGS ARE C.D.I. PT IS ABLE TO MAKE HIS NEEDS KNOWN AND HAS BEEN COMPLIANT WITH CARE. HE CALLS FOR HELP WHEN NEEDED AND HAS HIS CALL LIGHT IN REACH.
--- NOTE | 2019-08-16 20:26 | NUR ---
ASSUMED CARE OF THE PATIENT. HE IS ALERT AND WATCHING TV. DENIES ANY PAIN OR DISCOMFORT. IS ABLE TO STATE NAME AND PLACE BUT DOES HAVE SOME CONFUSION STILL. HE DOES KNOW HE WILL BE GOING TO A SNF FOR ANTIBOTIC TREATMENT. HE UNDERSTANDS THAT HE NEEDS CARE FOR HIS OSTOMY AND WOUNDS. ALL DRESSINGS ARE INTACT. THERE IS A LITTLE DRAINAGE NOTED COMING FROM UNDERNEATH THE OSTOMY APPLIANCE WHERE IT OVERLAYS SKIN WOUNDS. HE REFUSED ME TO CHANGE IT AT THIS TIME. CLEANED AROUND IT. WILL TRY AGAIN LATER. WILL CONTINUE TO MONITOR. CALL LIGHT IN REACH.
--- NOTE | 2019-08-16 22:40 | NUR ---
ALEN IS ASLEEP IN BED. WAS EASILY AWAKENED, GAVE HIM SOME WATER. CHECKED ON DRESSINGS NO FURTHER LEAKAGE AROUND. OSTOMY HAS TWO FORMED STOOLS INSIDE. ENCOURAGED MORE FLUID INTAKE. WILL CONTINUE TO MONITOR.
--- NOTE | 2019-08-17 00:54 | NUR ---
ALEN IS SLEEPING WITH NO SIGNS OF DISTESS. AWAKEN HIM FOR A SECOND TO REPOSITION HIM. CATH STILL PATENT, IV INFUSING WITH NO PROBLEMS. CALL LIGHT IN REACH.
--- NOTE | 2019-08-17 04:43 | NUR ---
SHIFT SUMMARY: NOHEMY HAD ANOTHER GOOD NIGHT. WAS AWAKE AT START OF SHIFT BUT QUICKLY SETTLED IN FOR THE NIGHT. HE HAS SLEPT WELL WITH NO SIGNS OF DISTRESS. IV CONTINUED TO INFUSE ON KVO, ANTIBOTICS GIVEN. OSTOMY APPLIANCE STILL INTACT WITH SOFT FORMED STOOL. DRESSINGS REMAINED INTACT, WITH SOME DRAINAGE PUS FROM WOUNDS UNDER THE OSTOMY DRESSING. CATHETER REMAINED PATENT AND DRAINING. NO ACUTE CHANGES OCCURRED THIS SHIFT.
--- NOTE | 2019-08-17 07:27 | NUR ---
ASSUMED CARE: PT SITTING UPRIGHT IN BED. TALKING TO STAFF. NO ACUTE NEEDS OR CONCERNS NOTED AT THIS TIME.
[2019-08-17] MEDS ORDERED: ALBU90OI INH (11:41)
[2019-08-17] MEDS ORDERED: CEPACOL SORE T1 EACH MM (11:42)
[2019-08-17] MEDS ORDERED: GUAI600T33 PO (11:43)
[2019-08-17] MEDS ORDERED: Vsl#3 Capsule1 EACH (11:44)
[2019-08-17] MEDS ORDERED: METO25 PO (12:02)
[2019-08-17] MEDS ORDERED: TAZICEF2 GM IV (12:10)
--- NOTE | 2019-08-17 12:52 | NUR ---
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 refuses to be repositioned, would not let the nurse, or myself check his colostomy. Patient refused care.
--- NOTE | 2019-08-17 14:55 | NUR ---
Initial spiritual care note: Mr. Gonzáles tells me he is unsure he still beleives in God. He seems emotionally despondant. He tells me he is unhappy with how his life has been and cannot remeber the last time he was happy. He states that he lives alone and manages "just fine." At times he was short-tempered, but would quickly apologize and continue talking. He admits that he is lonely nearly all the time. He was also quite cynical about his life/health getting any better. He could not or would not tell me why he is hospitalized. He claims he doesn't know what to expect next. He did not want prayer, but appeared to enjoy companionship and being heard. He would certainly benefit from on-going counseling. I will continue to visit as schedule permits to see if I can get Mr. Gonzáles to open-up. Is he on anti-depressants?
--- NOTE | 2019-08-17 16:27 | NUR ---
PT DECLINED POWER GLIDE DRESSING CHANGE
--- NOTE | 2019-08-17 17:57 | NUR ---
SHIFT SUMMARY: PT RESTING QUIETLY IN BED. PLAN FOR DC TO SNF TOMORROW WHEN AUTH COMES THROUGH. WOUND DRESSINGS TO BELLY CHANGED THIS SHIFT. POWER GLIDE IN PLACE. BANK AND SAVINGS SECURITIES TRADER AWARE PT REFUSED POWER GLIDE DRESSING CHANGED THIS SHIFT. NO FURTHER NEEDS OR CONCERNS AT THIS TIME.
--- NOTE | 2019-08-17 20:06 | NUR ---
NOHEMY WAS PLEASANT MORE ORIENTED THEN PREVIOUS NIGHT. HE IS COOPERATIVE AND ALLOWED US TO CLEAN HIM UP, CHANGE OUT THE PADS UNDERNEATH HIM, DO SKIN CARE. DRESSING ON BOTTOM CHANGED, PERICARE, REPOSITION HIM, CHANGE HIS OSTOMY BAG. APPLIED DUODERM UNDER OSTOMY APPLIANCE FOR OPEN LESIONS, HOPE IT STAYS INTACT. WOUND ON BOTTOM IS DEEP, BLACK IN ONE OPEN ARE AND BEEFY IN THE OTHER TWO, BLOODY DRAINAGE NOTED. SIDE OF HIP WAS INDENTED +4 OR MORE FROM HIM REFUSING TO TURN. HAD A LONG TALK WITH HIM REGARDING CHANGING POSITION. HE AGREED TO ALLOW US TONIGHT. ANOTHER DRESSING APPLIED TO RIGHT LATERAL CALF ARE FOR OPEN SPOT. REST OF DRESSINGS INTACT. WILL CONTINUE TO PROVIDE CARE AND MONITORING.
--- NOTE | 2019-08-18 04:29 | NUR ---
SHIFT SUMMARY: NOHEMY HAS CONTINUED TO IMPROVE. HE IS MORE ORIENTED THEN PREVIOUS NIGHTS AND MORE COOPERATIVE. DRESSINGS TO ABDOMIN HAVE REMAINED DRY AND INTACT. OSTOMY APPLIANCE WAS CHANGED DUE TO WOUNDS UNDER THE DRESSING DRAINING YELLOW PUS. THERE WERE TWO HYPERGRANULATED AREAS WEEPING. PLACED A DUODERM OVER THEM AND NEW APPLIANCE WAS APPLIED. DRESSING ON COCCYX WAS CHANGED. Q2 REPOSITIONING WHEN THE PATIENT ALLOWED. ANTIBOTIC WAS ADMINISTERED WITH NO PROBLEM. VS HAVE REMAINED WNL, AFEBRILE. PLAN IS TO GO TO SNF SOON INSURANCE APPROVES. NO OTHER CHANGES OCCURRED THIS SHIFT. CALL LIGHT IN REACH.
--- NOTE | 2019-08-18 07:00 | NUR ---
ASSUMED CARE OF PT- BEDSIDE REPORT COMPLETED WITH NIGHT RN. PER REPORT PT TO DISCHARGE TO SNF ON IV ANTIBIOTICS EARLY TODAY. PT A&O X2-3 (PER REPORT) PT SLEEPING AT THE TIME OF BEDSIDE REPORT. PT OFTEN CHOOSES TO DECLINE TO BE REPOSITIONED PER REPORT FROM NIGHT RN PT WAS ENCOURAGED NOT TO REFUSE T/O THE NIGHT, PT PRESSURE SORES HAVE PROGRESSED (AGAIN PER REPORT). PT HAS A PG TO RIGHT UPPER ARM. PT IS RESTING COMFORTABLY WITH NO S&S OF DISTRESS, PG IS SL, CALL LIGHT IS IN REACH.
--- NOTE | 2019-08-18 09:15 | NUR ---
PT POSITIONED ON BACK PILLOWS UNDER THE LEFT AND RIGHT SIDE. Q2 TURN PER REPORT. MOVED ONE PILLOW TO SHIFT WEIGHT AT THIS TIME. PT IS ACCEPTING OF CARE AT THIS TIME, PER REPORT PT CAN BE DIFFICULT FOR SOME PEOPLE TO WORK WITH. PT HAS A RED RASHY RIGHT ARM PIT THAT APPEARS LIKE YEAST, SPOKE TO DR MASCORRO AND REQUESTED SCRIPT FOR NYSTATIN POWDER. VERBAL ORDER RECIEVED.
--- NOTE | 2019-08-18 11:30 | NUR ---
PT REPOSITIONED, LEFT HIP TWO PILLOWS UNDER THE RIGHT. HEELS FLOATED. NO S&S OF DISTRESS NOTED.
--- NOTE | 2019-08-18 13:30 | NUR ---
PT REPOSITIONED HIPS FLOATED PILLOWS BENEATH LEGS HEELS FLOATED
--- NOTE | 2019-08-18 18:18 | NUR ---
PT REPOSITIONED TO LEFT SIDE LYING THREE PILLOWS BEHIND AND ONE BETWEEN THE KNEES. WOUND DRESSINGS VIEWED AND ARE INTACT, OSTOMY APPLIANCE IS INTACT, LEFT SIDE OF COCCYX WAS AMMUNITION COMPONENTS INSPECTOR, CLEANED WHITE AND SEROSANGUINOUS DRAINAGE FROM THE AREA AND PLACED A MEPILEX OVER THE STAGE 2 PRESSURE SORE THAT IS PRESENT THERE. ALL OTHER DRESSINGS ARE CLEAN DRY AND INTACT. RICHARD CARE PERFORMED. PT HAS A SKIN FOLD ON THE LEFT SIDE THAT WAS CLEANED AND NYSTATIN POWDER WAS APPLIED WELL THE RIGHT ARM PIT.
--- NOTE | 2019-08-18 18:24 | NUR ---
SHIFT SUMMARY- PT IS DUE FOR REPOSITION TO THE RIGHT SIDE LYING POSITION, PLAN IS TO REPOSITION THE PT JUST PRIOR TO SHIFT CHANGE. PT HAS DENIED THE NEED FOR PAIN MANAGEMENT MEDICATION T/O THE DAY. PG IN THE ROSA IS SL AT THIS TIME SUPRAPUBIC CATH IS PATENT AND DRAININGLIGHT YELLOW URINE WITH WHITE SEDIMENT. ALL WOUND DRESSINGS ARE C/D/I. PT OSTOMY APPLIANCE IS PATENT AND DRAINING DARK BROWN SOFT STOOL (SMALL AMOUNT). PT IS IN BED WITH THE CALL LIGHT IN REACH. PT CALLS APPROPRIATELY. PLAN IS FOR PT TO DISCHARGE HOME TOMORROW WITH HIS SON WHO WILL DO HOME INFUSION OF IV ABX FOR THE REST OF THE 7 DAYS OF ABX. (PER DC CANINE ENFORCEMENT OFFICER)
--- NOTE | 2019-08-19 07:21 | NUR ---
SHIFT SUMMARY PATIENT VERY SLEEPY BUT AROUSES EASILY AND IS ORIENTED X4. DRILL PUNCH OPERATOR REPOSITIONED PATIENT REGULARLY OVERNIGHT TO PREVENT FURTHER BREAKDOWN OF SKIN ON HIS BUTTOCKS. POWERGLIDE PATENT AND FLUSHED. BED IN LOWEST POSITION WITH WHEELS LOCKED. CALL LIGHT WITHIN REACH. REPORT GIVEN TO ONCOMING RN.
[2019-08-19] MEDS ORDERED: Pedi-Dri 100,0060 GM TOP (11:56)
[2019-08-19] MEDS ORDERED: Tazicef1 G1 IV (11:57)
--- NOTE | 2019-08-19 14:59 | NUR ---
1500 PT TO DISHCHARGE HOME TO HH. DRESSINGS CHANGED PRIOR TO DC. BELONGINGS PACKED BY STAFF. PT TRANSFERRED VIA PEE LIFT TO . [facility] TO TAKE HOME WHERE HH WILL MEET.POWER GLIDE LEFT IN PLACE DUE TO IV MEDS NEEDED AT HOME. PT INSTURCTED TO FOLLOW UP WITH PCP.
== END 2019-08-19 14:58 | disposition home health service (06) | DRG 698 ==
LOC: ER 17:20 → PCU 17:21 → MEDS 08-12 00:02 → PCU 08-12 00:12 → MEDS 08-12 16:21 → ENPENDDIS 08-17 13:11 → MEDS 08-19 14:58
PROVIDERS: Emergency Medicine; Hospitalist; Physician Assistant; ADMIT Internal Medicine
DX: T83.518A Infection and inflammatory reaction due to other urinary catheter, initial encounter (principal); L89.153 Pressure ulcer of sacral region, stage 3; L89.893 Pressure ulcer of other site, stage 3; A41.52 Sepsis due to Pseudomonas; N39.0 Urinary tract infection, site not specified; I96 Gangrene, not elsewhere classified; G82.20 Paraplegia, unspecified; I10 Essential (primary) hypertension; E78.5 Hyperlipidemia, unspecified; K21.9 Gastro-esophageal reflux disease without esophagitis; Z93.3 Colostomy status; G31.84 Mild cognitive impairment of uncertain or unknown etiology; N49.3 Fournier gangrene; I25.10 Atherosclerotic heart disease of native coronary artery without angina pectoris; D63.8 Anemia in other chronic diseases classified elsewhere; N31.9 Neuromuscular dysfunction of bladder, unspecified
CPT/HCPCS: 0099U; 36415; 51705; 71045; 80053; 80202; 81001; 83605; 84145; 85025; 85027; 85610; 85730; 87040; 87077; 87086; 87186; 93005; 93010; 94640; 94760; 96361-59; 96365-59; 96366-59; 97162; 99285-25; A9270-GY; C1751; C2627; J0713; J1650; J2185; J2405; J3370; J7030; J7050; J7120; U0002

== ENCOUNTER 2019-09-16 13:14 | Inpatient (IN) | payer OTHER, MEDICARE ==
[~2019-09-16] VITALS: Ht 180.3 cm; Wt 81.7 kg
[~2019-09-16 13:14] MED LIST changes: +ALBU90OI INH; +AMLODIPINE BESYL5 MG PO; +ATORVASTATIN CA20 MG PO; +Aspir 8181 MG PO; +CEPACOL SORE T1 EACH MM; +GUAI600T33 PO; +METO25 PO; +OMEPRAZOLE20 MG PO; +TAZICEF2 GM IV; +Tazicef1 G1 IV; +Vsl#3 Capsule1 EACH
[2019-09-16 13:45] LABS: BASOPHILS ABSOLUTE AUTO 0.06 K/mm3 (0.00-0.23); BASOPHILS PERCENT AUTO 1 % (0-2); EOSINOPHILS ABSOLUTE AUTO 0.35 K/mm3 (0.00-0.68); EOSINOPHILS PERCENT AUTO 3 % (0-6); Hematocrit 35.9 % (37.0-53.0); Hemoglobin 10.8 g/dL (13.5-17.5); IMMATURE GRAN ABSOLUTE AUTO 0.05 K/mm3 (0.00-0.10); IMMATURE GRAN PERCENT AUTO 1 % (0-1); LYMPHOCYTES ABSOLUTE AUTO 1.36 K/mm3 (0.84-5.20); LYMPHOCYTES PERCENT AUTO 13 % (21-46); MONOCYTES ABSOLUTE AUTO 0.77 K/mm3 (0.16-1.47); MONOCYTES PERCENT AUTO 8 % (4-13); Mean Corpuscular HGB Conc 30.1 g/dL (31.5-36.5); Mean Corpuscular Volume 90 fL (80-100); Mean Platelet Volume 9.8 fL (9.1-12.4); NEUTROPHILS ABSOLUTE AUTO 7.72 K/mm3 (1.96-9.15); NEUTROPHILS PERCENT AUTO 75 % (41-73); Platelet Count 414 K/mm3 (150-400); RDW Coefficient Variation 16.4 % (11.7-14.2); RDW Standard Deviation 54.1 fL (35.1-46.3); White Blood Cell Count 10.31 K/mm3 (4.00-11.30)
[2019-09-16 13:53] LABS: Source, Urine Catheter
[2019-09-16 13:56] LABS: Bilirubin, Urine Neg (Neg); Blood, Urine 4+ (Neg); Glucose Qualitative, Urine Neg (Neg); Ketones, Urine Neg (Neg); Leukocyte Esterase, Urine 3+ (Neg); Nitrite, Urine Neg (Neg); Protein, Urine 3+ (Neg); Urobilinogen, Urine NORM (Normal)
[2019-09-16 14:02] LABS: Appearance, Urine Turbid (Clear); Color, Urine Yellow (P-Yellow)
[2019-09-16 14:04] LABS: Red Blood Cells, Urine TNTC /hpf (0-2); White Blood Cells, Urine TNTC /hpf (0-5)
[2019-09-16 14:05] LABS: Bacteria Many /hpf; Squamous Epithelial Cells Rare /hpf (Few)
[2019-09-16 14:05] LABS: Anion Gap 7 mmol/L (6-16); Blood Urea Nitrogen 20 mg/dL (8-24); Bun/Creatinine Ratio 43.1 (12.0-20.0); CO2, Blood 29 mmol/L (21-32); Calcium, Blood 8.9 mg/dL (8.5-10.1); Chloride, Blood 107 mmol/L (98-108); Creatinine, Blood 0.46 mg/dL (0.60-1.20); Glomerular Filtration Rate >60 (60-); Glucose, Blood 90 mg/dL (70-99); Potassium, Blood 3.8 mmol/L (3.5-5.5); Sodium, Blood 143 mmol/L (136-145); Troponin I <0.015 ng/mL (0.000-0.040)
[2019-09-16] MEDS ORDERED: SENNA LAXATIVE8.6 MG PO (18:59)
[2019-09-16 19:37] LABS: Magnesium, Blood 1.6 mg/dL (1.6-2.4)
[2019-09-16 19:38] LABS: Thyroid Stimulating Hormone 0.837 uIU/mL (0.360-4.800)
[2019-09-17] MEDS ORDERED: Hydrocodone-Ap1 EA20 PO (00:44)
--- NOTE | 2019-09-17 01:17 | NUR ---
LATE ENTRY FOR 09/16/19 2030: PATIENT WAS RECIEVED FROM ER VIA STRETCHER. BEDBOUND AND CONFUSED ONLY ORIENTED TO SELF. MULTIPLE PRESSURE ULCERS AND EXCORIATIONS ARE OBSERVED, SEE PICTURES. PATIENT IS UNABLE TO ANSWER MEDICATION RECONSILIATION QUESTIONS OR MEDICAL HISTORY DUE TO CONFUSION. PATIENT IS ORIENTED TO ROOM AND CALL PARKER, WHICH IS WITHIN REACH AND BED ALARM IS ON FOR SAFETY.
--- NOTE | 2019-09-17 01:24 | NUR ---
MEDICATIONS: SON CALLED UNIT FOR UPDATE ION PATIENT AND IS ABLE TO ASSIST WITH MEDS RECONSILIATION. SON ADOLFO REPORTS THAT THE ONLY MEDICATIONS HE HAS BEEN GIVING PATIENT IS THE PROTONIX AND OCCASSIONAL HYDRCODONE 10/325MG. THE REST OF THE MEDICATIONS SON STATES HE IS WAITING FOR [facility]FORMATION FROM [facility] THAT THE PATIENT STILL NEEDS THESE MEDICATUIONS AND HE WILL NEED REFILLS.
[2019-09-17] MEDS ORDERED: ACET325 PO (03:34)
[2019-09-17] MEDS ORDERED: Bacid1 EACH PO (03:35)
[2019-09-17] MEDS ORDERED: CALAMINE LOTIO177 ML TOP (03:39)
[2019-09-17] MEDS ORDERED: GENTEAL TEARS 015 ML BOTHEYES (03:42)
[2019-09-17] MEDS ORDERED: LIDO5TO TOP (03:44)
[2019-09-17] MEDS ORDERED: Pedi-Dri 100,0060 GM TOP (03:45)
--- NOTE | 2019-09-17 03:49 | NUR ---
MEDICATIONS: MED REC IS COMPLETED WITH HELP FROM SONS AND MEDICAL RECORD. MED REC IS COMPLETE.
[2019-09-17 05:20] LABS: BASOPHILS ABSOLUTE AUTO 0.02 K/mm3 (0.00-0.23); BASOPHILS PERCENT AUTO 0 % (0-2); EOSINOPHILS ABSOLUTE AUTO 0.18 K/mm3 (0.00-0.68); EOSINOPHILS PERCENT AUTO 3 % (0-6); Hematocrit 32.3 % (37.0-53.0); Hemoglobin 9.5 g/dL (13.5-17.5); IMMATURE GRAN ABSOLUTE AUTO 0.02 K/mm3 (0.00-0.10); IMMATURE GRAN PERCENT AUTO 0 % (0-1); LYMPHOCYTES ABSOLUTE AUTO 1.09 K/mm3 (0.84-5.20); LYMPHOCYTES PERCENT AUTO 17 % (21-46); MONOCYTES ABSOLUTE AUTO 0.55 K/mm3 (0.16-1.47); MONOCYTES PERCENT AUTO 9 % (4-13); Mean Corpuscular HGB 26.5 pg (26.0-34.0); Mean Corpuscular HGB Conc 29.4 g/dL (31.5-36.5); Mean Corpuscular Volume 90 fL (80-100); Mean Platelet Volume 9.4 fL (9.1-12.4); NEUTROPHILS ABSOLUTE AUTO 4.59 K/mm3 (1.96-9.15); NEUTROPHILS PERCENT AUTO 71 % (41-73); Platelet Count 318 K/mm3 (150-400); RDW Coefficient Variation 16.3 % (11.7-14.2); RDW Standard Deviation 53.9 fL (35.1-46.3); Red Blood Cell Count 3.58 M/mm3 (4.30-5.90); White Blood Cell Count 6.45 K/mm3 (4.00-11.30)
[2019-09-17 05:50] LABS: Alanine Aminotransfer (ALT/SGP 13 U/L (12-78); Albumin, Blood 1.9 g/dL (3.4-5.0); Albumin/Globulin Ratio 0.4 (0.8-1.8); Alk Phos 81 U/L (50-136); Anion Gap 5 mmol/L (6-16); Aspartate Aminotrans (AST/SGOT 9 U/L (12-37); Bilirubin, Total 0.5 mg/dL (0.1-1.0); Blood Urea Nitrogen 12 mg/dL (8-24); Bun/Creatinine Ratio 30.2 (12.0-20.0); CO2, Blood 27 mmol/L (21-32); Calcium, Blood 7.9 mg/dL (8.5-10.1); Chloride, Blood 110 mmol/L (98-108); Globulin, Blood 4.5 g/dL (2.2-4.0); Glomerular Filtration Rate >60 (60-); Glucose, Blood 92 mg/dL (70-99); Potassium, Blood 3.5 mmol/L (3.5-5.5); Sodium, Blood 142 mmol/L (136-145); Total Protein, Blood 6.4 g/dL (6.4-8.2)
--- NOTE | 2019-09-17 09:06 | NUR ---
SHIFT SUMMARY: PATIENT IS ALERT AND ORIENTED TO SELF ONLY. IS WITHDRAWN AND DOES NOT USE CALL PARKER FOR ANY ASSISTANCE. SONADOLFO IS THE PRIMARY OFFICE CLINICIAN AND REPORTS HE HAS ONLY BEEN GIVING THE PATIENT PROTONIX DAILY AND HYDROCODONE OCCASSIONALY FOR PAIN. PATIENT DID REPORT A HEAD ACHE AND TYLENOL WAS GIVEN WITH GOOD EFFECT. WOUND CARE IS EXTENSIVE WITH MANY UNSTAGEABLE WOUNDS ON THE LEGS AND MANY SCATTERED OPEN HOLES ON BUTTOCKS THAT RESEMBLE PRYDEINIG CHEESE. THE ABD IS EXCORIATED AND BLEEDING ALL OPEN WOUNDS ARE BLEEDING. PHOTO CONSENT IS SIGNED AND PHOTOGRAPHS ARE TAKEN, SEE CHART. VS ARE STABLE, PATIENT IS ABLE TO TAKE PILLS WHOLE WITH WATER, NO SWALLOWING DIFFICULTIES OBSERVED. PATIENT KEEPS BLANKET OVER HIS HEAD AT ALL TIMES. CALL PARKER IS WITH REACH AND BED ALARM IS ON FOR SAFETY.
--- NOTE | 2019-09-17 16:04 | NUR ---
SHIFT SUMMARY PATIENT CONTINUES TO SHOW SIGNS OF FORGETFULNESS. DIFFICULTY FOLLOWING CONVERSATIONS. BELIEVES HIS SON IS COMING TO PICK HIM UP AND TAKE HIM HOME. REFUSING NEW IV, DR. PIZANO. ATTEMPTING TO EDUCATE AND ENCOURAGE IV PLACEMENT. REFUSED BEDBATH. ANOTHER RN VISIT WITH PATIENT IN HOPES TO PROVIDE WOUND CARE AND HELP ASSIST WITH IV INSERTION, HE REFUSED. DIFFICULT TO REASON WITH.
--- NOTE | 2019-09-18 07:19 | NUR ---
SHIFT SUMMARY: PATIENT IS WITHDRAWN, PULLS BLANKETS OVER HIS HEAD MOST OF THE SHIFT. RESISTANT TO T&P AND WOUND CARE, ALSO REFUSED AM LINE DRAW AND 0600 PRILOSEC. EDUCATION IS GIVEN ON THE IMPORTANCE OF REPOSITIONING AND WOUND HEALING. PATIENT WAS FOUND REMOVING DRSG'S FOR ABD AND PULLING ON SUPRA PUBIC CATHETER CAUSING BLEEDING FROM INCERTION SITE. CATHER HAS HIGH OUTPUT OF CLOUDY YELLOW URINE.
[2019-09-18 08:11] LABS: BASOPHILS ABSOLUTE AUTO 0.04 K/mm3 (0.00-0.23); BASOPHILS PERCENT AUTO 1 % (0-2); EOSINOPHILS ABSOLUTE AUTO 0.34 K/mm3 (0.00-0.68); EOSINOPHILS PERCENT AUTO 5 % (0-6); Hemoglobin 8.9 g/dL (13.5-17.5); IMMATURE GRAN ABSOLUTE AUTO 0.01 K/mm3 (0.00-0.10); IMMATURE GRAN PERCENT AUTO 0 % (0-1); LYMPHOCYTES ABSOLUTE AUTO 1.15 K/mm3 (0.84-5.20); LYMPHOCYTES PERCENT AUTO 18 % (21-46); MONOCYTES ABSOLUTE AUTO 0.63 K/mm3 (0.16-1.47); MONOCYTES PERCENT AUTO 10 % (4-13); Mean Corpuscular HGB 27.2 pg (26.0-34.0); Mean Corpuscular HGB Conc 30.7 g/dL (31.5-36.5); Mean Corpuscular Volume 89 fL (80-100); Mean Platelet Volume 9.9 fL (9.1-12.4); NEUTROPHILS ABSOLUTE AUTO 4.22 K/mm3 (1.96-9.15); NEUTROPHILS PERCENT AUTO 66 % (41-73); Platelet Count 299 K/mm3 (150-400); RDW Coefficient Variation 16.3 % (11.7-14.2); RDW Standard Deviation 52.7 fL (35.1-46.3); Red Blood Cell Count 3.27 M/mm3 (4.30-5.90); White Blood Cell Count 6.39 K/mm3 (4.00-11.30)
[2019-09-18 08:26] LABS: Anion Gap 6 mmol/L (6-16); Blood Urea Nitrogen 6 mg/dL (8-24); Bun/Creatinine Ratio 17.8 (12.0-20.0); CO2, Blood 25 mmol/L (21-32); Chloride, Blood 109 mmol/L (98-108); Creatinine, Blood 0.34 mg/dL (0.60-1.20); Glomerular Filtration Rate >60 (60-); Glucose, Blood 84 mg/dL (70-99); Sodium, Blood 140 mmol/L (136-145)
--- NOTE | 2019-09-18 16:47 | NUR ---
SHIFT SUMMARY- PT IS ALERT PLESANT AND COOPERATIVE. HE HAS SOME CONFUSION, HE BELIEVES THAT HE IS AT HOME, HE REORIENTATED EASILY THIS MORNING. LATER THIS AFTERNOON HE WAS REPORTED THAT HE SAW A LIZARD IN HIS ROOM. HE STATED THAT WE WERE FROM THE [place] AND WAS FRUSTRATED THAT WE WERE TAKING SO LONG TO FIX THE PHONE, HE DID NOT REORIENT EASILY AND DOUBTED ME WHEN I TOLD HIM HE WAS IN THE HOSPITAL. HE IS EATING AND DRINKING WELL. CHECKED THAT BANDAGES WERE C/D/I. CHANGED THE BANDAGES ON HIS ABDOMEN. HIS SUPERPUBIC CATH IS PATIENT AND DRAINING WELL. VERY LITTLE OUTPUT FROM HIS OSTOMY. HE HAS MULTIPLE WOUNDS ON HIS ABDOMEN AND LOWER EXTREMITIES. SURGICAL CONSULT FOR WOUNDS. DR. VILLARREAL DOES NOT BELIEVE THAT HIS WOUNDS REQUIRE ANY SURGICAL INTERVENTION AT THIS TIME.
--- NOTE | 2019-09-19 05:09 | NUR ---
SHIFT SUMMARY PT IS A 73 Y/O MALE, ADMITTED FOR ACUTE METABOLIC ENCEPHALOPATHY. PT IS A&O X SELF ONLY, WITH VISUAL AND AUDIO HALLUCINATIONS. PT IS A PARAPLEGIC R/T PREVIOUS SPINAL INJURY, AND BEDBOUND AT BASELINE. PT DENIED ANY COMPLAINTS OF ACUTE PAIN, NAUSEA, OR SOB. PT TENDS TO CURL UP ON HIS RIGHT SIDE, AND WILL MOVE INTO THAT POSITION EVEN AFTER REPOSITIONED. PT IS IRRITABLE AND ANGRY WITH STAFF AT TIMES, AND REFUSED HIS AM MEDS. VITAL SIGNS STABLE. NO OTHER ACUTE CHANGES IN PT CONDITION NOTED. WILL CONTINUE TO MONITOR AND TREAT PER EMAR UNTIL HAND OFF TO DAY SHIFT RN.
[2019-09-19 06:15] LABS: BASOPHILS ABSOLUTE AUTO 0.03 K/mm3 (0.00-0.23); BASOPHILS PERCENT AUTO 0 % (0-2); EOSINOPHILS ABSOLUTE AUTO 0.23 K/mm3 (0.00-0.68); EOSINOPHILS PERCENT AUTO 3 % (0-6); Hematocrit 30.4 % (37.0-53.0); Hemoglobin 9.3 g/dL (13.5-17.5); IMMATURE GRAN ABSOLUTE AUTO 0.02 K/mm3 (0.00-0.10); IMMATURE GRAN PERCENT AUTO 0 % (0-1); LYMPHOCYTES ABSOLUTE AUTO 1.23 K/mm3 (0.84-5.20); LYMPHOCYTES PERCENT AUTO 18 % (21-46); MONOCYTES ABSOLUTE AUTO 0.64 K/mm3 (0.16-1.47); MONOCYTES PERCENT AUTO 10 % (4-13); Mean Corpuscular HGB 27.3 pg (26.0-34.0); Mean Corpuscular HGB Conc 30.6 g/dL (31.5-36.5); Mean Corpuscular Volume 89 fL (80-100); Mean Platelet Volume 9.9 fL (9.1-12.4); NEUTROPHILS ABSOLUTE AUTO 4.57 K/mm3 (1.96-9.15); NEUTROPHILS PERCENT AUTO 68 % (41-73); Platelet Count 315 K/mm3 (150-400); RDW Coefficient Variation 16.3 % (11.7-14.2); RDW Standard Deviation 53.1 fL (35.1-46.3); Red Blood Cell Count 3.41 M/mm3 (4.30-5.90); White Blood Cell Count 6.72 K/mm3 (4.00-11.30)
[2019-09-19 06:34] LABS: Alanine Aminotransfer (ALT/SGP 9 U/L (12-78); Albumin, Blood 1.9 g/dL (3.4-5.0); Albumin/Globulin Ratio 0.4 (0.8-1.8); Alk Phos 84 U/L (50-136); Anion Gap 7 mmol/L (6-16); Aspartate Aminotrans (AST/SGOT 16 U/L (12-37); Bilirubin, Total 0.5 mg/dL (0.1-1.0); Blood Urea Nitrogen 8 mg/dL (8-24); Bun/Creatinine Ratio 22.9 (12.0-20.0); CO2, Blood 25 mmol/L (21-32); Calcium, Blood 7.9 mg/dL (8.5-10.1); Chloride, Blood 107 mmol/L (98-108); Creatinine, Blood 0.35 mg/dL (0.60-1.20); Globulin, Blood 4.6 g/dL (2.2-4.0); Glomerular Filtration Rate >60 (60-); Glucose, Blood 87 mg/dL (70-99); Potassium, Blood 3.1 mmol/L (3.5-5.5); Sodium, Blood 139 mmol/L (136-145); Total Protein, Blood 6.5 g/dL (6.4-8.2)
--- NOTE | 2019-09-19 19:33 | NUR ---
100CC URINE EMPTIED FROM OLD DRAINAGE BAG. MAINTAINING STERILE TECHNIQUE REPLACED SUPRA CATH WITH 16FR WITH APPROX 10ML URINE NOTED AND COLLECTED IN STERILE SAMPLE CUP. LABEL PLACED, INITIAL AND TIME AND LEFT WITH [facility] KHOURY CARING FOR PT.
--- NOTE | 2019-09-20 07:51 | NUR ---
SHIFT SUMMARY AOX1-SELF ONLY, STATES ITS APR 1999, UNAWARE PRESIDENT OR TOWN/PLACE. REPORTS SEEING DOGS IN THE ROOM WHILE DOING ASSESSMENT. VSS. DENIES PAIN, N/V, DYSPNEA. SUPERPUBIC CATHETER CHANGED @SHIFT CHANGE LAST NIGHT. COLOSTOMY APPLIANCE IS C/D/I, W/ SOFT BROWN STOOL OUTPUT. DRESSINGS CHANGED ON COCCYX & ABD, BECAUSE THEY HAD MODERATE AMOUNT SEROSANGUINOUS DRAINAGE. REPOSITIONED PT WOULD ALLOW. PT CAN BE IRRITABLE & REFUSE CARE @TIMES. PT DID REFUSE LABS TO BE DRAWN THIS AM & I NOTIFIED ONCOMING NURSE. CALL LIGHT IN REACH.
--- NOTE | 2019-09-20 12:17 | NUR ---
Pt resting in bed with his eyes closed. Pt awakes to verbal stimuli. Pt is A&OX1 and denies pain at this time. Pt keeps closing his eyes and appears to be drifting back to sleep. Spoke with Bedside RN Marlee and discussed case. Marlee reports Pt has been refusing lab draws and intermittently refusing his medications. Called and spoke with Pt's son Raquel. Engaged in therapeutic conversation regarding Advanced Care Planning. Raquel reports Pt lives with hime and receives home health servieds. Attempted to educate Raquel on disease process with Raquel responding very little with conversation. Raquel reports his biggest concerns is having [facility] the [facility] come and change his catheter routinely to help prevent UTI's. Suggested his home health nurse should also be able to change his catheter routinely. Due to lack of receptiveness of conversation this RN end discussion. Palliative Care will remain available and continue conversations with family as needed. Palliative Care will remain available.
--- NOTE | 2019-09-20 15:55 | NUR ---
Initial spiritual care note: Mr. Gonzáles had just spilled his lunch all over himself when I entered room. I cleaned him up and helped him adjust his tray for easier self-feeding. He does not understand where he is or why, but did not appear bothered by this. He did not respnd to me when I asked to pray for him. He denied pain and appears comfortable. I will remain available.
--- NOTE | 2019-09-20 16:57 | NUR ---
PT REFUSED LAB DRAW THIS MORING BUT WAS COMPLIANT WITH NURSE AND TOOK HIS MEDS THOUGH HE HAD TO BE ENCOURAGED. DRESSINGS CHANGED TO ABDOMEN AND INNER LEFT THIGH. PT TOLERATED WELL. DAUGHTER CALLED AND IS INTERESTED IN PLACING PT IN LTC. NO ACUTE CHANGES.
--- NOTE | 2019-09-20 20:03 | NUR ---
CONFUSION PT HAS BEEN YELLING, HOLLERING "HELP, SOMEBODY" "HELLO" SINCE I ARRIVED TO FLOOR THIS SHIFT. UPON ENTERING ROOM PT IS VERY CONFUSED. AOX1. UNAWARE PLACE, SITUATION, OR DATE. STATES "LET ME GO TO MY ROOM" & HE IS "IN THE HOUSE". WHEN ASKED WHERE HE IS TRYING TO GO HE SAYS "I'M TRYING TO GET IN THE VAN TO DRIVE TO THE STORE." REMINDED PT HE IS PARALIZED & THAT HE IS AT THE HOSPITAL HE SAYS "NO I'M NOT! I'M JUST STUCK." REPORTS THE TOWN IS [place] & THE DATE IS NOVEMBER 10, 1919. CALLED SABRA SARABIA OF INCREASED AGITATION IN PT & HE ORDERED A 1X DOSE OF 50MG TRAZADONE. [facility] PT. CALL LIGHT IN REACH.
--- NOTE | 2019-09-21 06:20 | NUR ---
SHIFT SUMMARY AOX1-SELF ONLY. WAS VERY CONFUSED, AGITATED, ANXIOUS AT BEGINNING OF SHIFT AROUND 1930, READ PREVIOUS NOTE. HOWEVER SINCE MEDICATED W/TRAZADONE PER ORDERS PT HAS BEEN CALM, COOPERATIVE & PLEASENT W/ALL CARE. DENIES PAIN, N/V, OR DYSPNEA. COLOSTOMY APPLIANCE IS C/D/I. SUPERPUBIC CATH IS PATENT & DRAINING. DRESSINGS ON MULTIPLE WOUNDS WERE CHANGED FOR MODERATE AMOUNT SEROSANGUINOUS DRAINAGE. CALL LIGHT IN REACH.
[2019-09-21] MEDS ORDERED: VISBIOME 112.51 EACH PO (10:25)
[2019-09-21] MEDS ORDERED: Lacri-Lube S.O3.5 GM BOTHEYES (10:27)
[2019-09-21] MEDS ORDERED: METO25ER PO (10:27)
--- NOTE | 2019-09-21 16:03 | NUR ---
1734 PT TO DISCHARGE HOME. TRANSPORTATION TO TAKE HIM HOME. PT VERY CONFUSED REGARDING TRANSFER. [facility]. SON NOTIFIED OF DISCHARGE . PT PUT IN SLING AND TRANSFERRED TO . STAFF WALKED DOWN WITH TRANSFER .
== END 2019-09-21 15:47 | disposition home health service (06) | DRG 698 ==
LOC: ER 13:14 → PCU 20:32 → MEDS 20:32 → ENPENDDIS 09-21 10:00 → MEDS 09-21 15:47
PROVIDERS: Emergency Medicine; Internal Medicine; Nurse Practitioner Acute Care; ADMIT Internal Medicine
DX: T83.510A Infection and inflammatory reaction due to cystostomy catheter, initial encounter (principal); G92 Toxic encephalopathy; E43 Unspecified severe protein-calorie malnutrition; G82.20 Paraplegia, unspecified; N39.0 Urinary tract infection, site not specified; I10 Essential (primary) hypertension; Z95.1 Presence of aortocoronary bypass graft; Z87.891 Personal history of nicotine dependence; Z74.01 Bed confinement status; K21.9 Gastro-esophageal reflux disease without esophagitis; Z93.3 Colostomy status; L89.151 Pressure ulcer of sacral region, stage 1; E87.6 Hypokalemia; N31.9 Neuromuscular dysfunction of bladder, unspecified; Z68.25 Body mass index [BMI] 25.0-25.9, adult; L89.899 Pressure ulcer of other site, unspecified stage; L89.629 Pressure ulcer of left heel, unspecified stage; L89.619 Pressure ulcer of right heel, unspecified stage
CPT/HCPCS: 36415; 71045; 80048; 80053; 81001; 83735; 84145; 84443; 84484; 85025; 87040; 87077; 87086; 87186; 93005; 93010; 94760; 96361; 96365; 96366; 96367; 97162; 97166; 97530; 99285-25; A9270; A9270-GY; J0290; J0713; J1956; J7030

== ENCOUNTER 2020-07-13 19:32 | Inpatient (IN) | payer OTHER, MEDICARE ==
[~2020-07-13] VITALS: Ht 167.6 cm; Wt 90.7 kg
[~2020-07-13 19:32] MED LIST changes: +Bacid1 EACH PO; +CALAMINE LOTIO177 ML TOP; +GENTEAL TEARS 015 ML BOTHEYES; +Hydrocodone-Ap1 EA20 PO; +LIDO5TO TOP; +Lacri-Lube S.O3.5 GM BOTHEYES; +VISBIOME 112.51 EACH PO
[2020-07-13 20:22] LABS: BASOPHILS ABSOLUTE AUTO 0.02 K/mm3 (0.00-0.23); BASOPHILS PERCENT AUTO 0 % (0-2); EOSINOPHILS ABSOLUTE AUTO 0.02 K/mm3 (0.00-0.68); EOSINOPHILS PERCENT AUTO 0 % (0-6); Hematocrit 37.7 % (37.0-53.0); Hemoglobin 11.7 g/dL (13.5-17.5); IMMATURE GRAN ABSOLUTE AUTO 0.08 K/mm3 (0.00-0.10); IMMATURE GRAN PERCENT AUTO 1 % (0-1); LYMPHOCYTES PERCENT AUTO 5 % (21-46); MONOCYTES ABSOLUTE AUTO 1.19 K/mm3 (0.16-1.47); MONOCYTES PERCENT AUTO 7 % (4-13); Mean Corpuscular HGB 28.5 pg (26.0-34.0); Mean Corpuscular Volume 92 fL (80-100); Mean Platelet Volume 10.1 fL (9.1-12.4); NEUTROPHILS ABSOLUTE AUTO 15.08 K/mm3 (1.96-9.15); NEUTROPHILS PERCENT AUTO 88 % (41-73); Platelet Count 439 K/mm3 (150-400); RDW Standard Deviation 50.8 fL (35.1-46.3); Red Blood Cell Count 4.11 M/mm3 (4.30-5.90); White Blood Cell Count 17.19 K/mm3 (4.00-11.30)
[2020-07-13 20:38] LABS: International Normalized Ratio 1.03
[2020-07-13 20:41] LABS: Albumin, Blood 2.4 g/dL (3.4-5.0); Albumin/Globulin Ratio 0.4 (0.8-1.8); Bilirubin, Total 0.7 mg/dL (0.1-1.0); Bun/Creatinine Ratio 51.7 (12.0-20.0); Calcium, Blood 9.2 mg/dL (8.5-10.1); Creatinine, Blood 1.45 mg/dL (0.60-1.20); Globulin, Blood 6.2 g/dL (2.2-4.0); Potassium, Blood 4.9 mmol/L (3.5-5.5); Total Protein, Blood 8.6 g/dL (6.4-8.2)
[2020-07-13 21:28] LABS: Source, Urine Catheter
[2020-07-13 21:51] LABS: Appearance, Urine Turbid (Clear); Bilirubin, Urine Neg (Neg); Blood, Urine 4+ (Neg); Color, Urine Brown (P-Yellow); Glucose Qualitative, Urine Neg (Neg); Ketones, Urine 1+ (Neg); Leukocyte Esterase, Urine 3+ (Neg); Nitrite, Urine Neg (Neg); Protein, Urine 4+ (Neg); Specific Gravity, Urine 1.015 (1.003-1.022); Urobilinogen, Urine NORM (Normal)
[2020-07-13 22:10] LABS: Amorphous Heavy (0-Heavy); Bacteria Many /hpf; Mucus Heavy (0-Heavy); Squamous Epithelial Cells Not Seen /hpf (Few); Triple Phosphate Crystals Few /hpf; White Blood Cells, Urine TNTC /hpf (0-5)
[2020-07-13] MEDS ORDERED: ACET500 PO (22:45)
[2020-07-13] MEDS ORDERED: ASCO500 PO (22:46)
[2020-07-13] MEDS ORDERED: FERSU300 PO (22:46)
[2020-07-13] MEDS ORDERED: MIRTAZAPINE7.5 M1 PO (22:47)
[2020-07-13] MEDS ORDERED: PANT40 PO (22:48)
[2020-07-13] MEDS ORDERED: MULVITA PO (22:48)
[2020-07-13] MEDS ORDERED: SENNA LAXATIVE8.6 MG PO (22:49)
[2020-07-13] MEDS ORDERED: SENN187 PO (22:49)
[2020-07-13] MEDS ORDERED: SERT100 PO (22:50)
[2020-07-13] MEDS ORDERED: Sanctura20 MG PO (22:51)
[2020-07-13] MEDS ORDERED: TRAM50 PO (22:51)
[2020-07-13] MEDS ORDERED: TESTOSTERONE75 G1 TOP (22:52)
[2020-07-13] MEDS ORDERED: SELENIUM 2.5% TOP (22:54)
[2020-07-13] MEDS ORDERED: MUPIROCIN22 G2 TOP (22:55)
[2020-07-13] MEDS ORDERED: MENTHOL TOP (22:57)
[2020-07-13] MEDS ORDERED: ZINC OXIDE TOP (22:57)
[2020-07-13] MEDS ORDERED: ANTIFUNGAL POWD71 GM TOP (22:57)
[2020-07-13] MEDS ORDERED: SODIUM CHLORID100 ML IR (22:59)
[2020-07-14 07:29] LABS: Hematocrit 37.6 % (37.0-53.0); Hemoglobin 11.1 g/dL (13.5-17.5); Mean Corpuscular HGB 28.5 pg (26.0-34.0); Mean Corpuscular HGB Conc 29.5 g/dL (31.5-36.5); Mean Corpuscular Volume 96 fL (80-100); Mean Platelet Volume 10.4 fL (9.1-12.4); Platelet Count 329 K/mm3 (150-400); RDW Coefficient Variation 15.1 % (11.7-14.2); RDW Standard Deviation 53.5 fL (35.1-46.3); White Blood Cell Count 14.13 K/mm3 (4.00-11.30)
[2020-07-14 08:37] LABS: Anion Gap 8 mmol/L (6-16); Blood Urea Nitrogen 64 mg/dL (8-24); Bun/Creatinine Ratio 59.8 (12.0-20.0); CO2, Blood 23 mmol/L (21-32); Calcium, Blood 8.4 mg/dL (8.5-10.1); Chloride, Blood 113 mmol/L (98-108); Creatinine, Blood 1.07 mg/dL (0.60-1.20); Glomerular Filtration Rate >60 (60-); Glucose, Blood 112 mg/dL (70-99); Potassium, Blood 4.4 mmol/L (3.5-5.5); Sodium, Blood 144 mmol/L (136-145)
--- NOTE | 2020-07-14 11:10 | NUR ---
PT ARRIVED VIA GURNEY, LATERAL TRANSFER TO BED W/SLIDER SHEET. PT WITH SUPRAPUBIC CATH, DRAINING WITH YELLOW, VERY CLOUDY URINE. MULTIPLE WOUNDS ON PTS BODY, ABD, LEGS, KNEES AND BUTTOCKS. PICTURES TAKEN, SEE CHART. PT ANSWERING YES/NO QUESTIONS AND FOLLOWING SIMPLE DIRECTIONS. WARM BLANKETS PROVIDED AND CALL PARKER IN REACH. BED IN LOWEST POSITION. WILL CONTINUE TO MONITOR.
--- NOTE | 2020-07-15 01:07 | NUR ---
1944 PT RESTING COMFORTABLY IN BED; NO DRAINAGE OR BM VIA COLOSTOMY NOTED WITH WAFER INTACT. 2099 PT REFUSED H.S. SENNA MEDS; STILL NO BM VIA COLOSTOMY. 07/15/20 NO BM NOTED.
--- NOTE | 2020-07-15 03:22 | NUR ---
SHIFT SUMMARY: 74 Y/O OBESE MALE RESTED COMFORTABLY ALL SHIFT; PT DENIES PAIN OR NAUSEA; ALERT AND ORIENTED X 1, ABLE TO FOLLOW SIMPLE VERBAL COMMANDS; NO STOOL VIA COLOSTOMY NOTED; PT HAS MULTIPLE WOUNDS THROUGHOUT ENTIRE BODY WITH MEPLEX DRESSINGS APPLIED; SUPRAPUBIC CATHETER DRAINING CLOUDY YELLOW FLUID; BED ALARM APPLIED, BED LOW POSITION WITH CALL LIGHT AT SIDE.
--- NOTE | 2020-07-15 19:24 | NUR ---
PT ALERT TO SELF, PERSON AND FAMILY, CONFUSED TO WHERE HE IS, WHY HE IS HERE AND HOW HE ARRIVED. EXPRESSING DESIRE TO GO HOME WHILE HIS DAUGHTER VISITED. NO ACUTE CHANGES NOTED, WILL CONTINUE TO MONITOR AND REPORT TO ONCOMING RN
--- NOTE | 2020-07-15 22:49 | NUR ---
194 PT RESTING COMFORTABLY IN BED WHILE WATCHING TV; ALERT AND ORIENTED X 2; ABLE TO FOLLOW SIMPLE VERBAL COMMANDS; PTS HAS NUMEROUS WOUNDS THROUGHOUT BODY ALL COVERED WITH MEPLEX DRESSINGS; COLOSTOMY HAS NO OUTPUT NOTED; SUPRAPUBIC CATHETER DRAINING DARK YELLOW CLOUDY FLUID WITH SEDIMENT (SITE COVERED WITH DRAIN [id number]); BED ALARM APPLIED FOR SAFETY; CONTACT ISOLATION MAINTAINED.
--- NOTE | 2020-07-16 03:14 | NUR ---
SHIFT SUMMARY: 74 Y/O MALE RESTED COMFORTABLY IN BED; PT CONTINUES TO HAVE MULTIPLE WOUNDS OVER ENTIRE BODY WITH ALL SITES COVERED WITH MEPLEX DRESSINGS; COLOSTOMY HAS NO OUTPUT NOTED; SUPRAPUBIC CATHETER DRAINING CLOUDY YELLOW FLUID WITH SEDIMENT; PT ALERT AND ORIENTED X 1 AND REQUIRES FREQUENT REDIRECTION BY NURSING STAFF; BED ALARM APPLIED FOR SAFETY, BED LOW POSITION WITH CALL LIGHT AT SIDE; PT WOULD BENEFIT FROM AIR MATTRESS BED AND LIFT ROOM WITH TELMA LOPEZ RN, CHARGE NURSE ADVISED THIS REQUEST.
[2020-07-16 05:22] LABS: BASOPHILS ABSOLUTE AUTO 0.03 K/mm3 (0.00-0.23); BASOPHILS PERCENT AUTO 1 % (0-2); EOSINOPHILS ABSOLUTE AUTO 0.44 K/mm3 (0.00-0.68); EOSINOPHILS PERCENT AUTO 8 % (0-6); Hematocrit 32.1 % (37.0-53.0); Hemoglobin 9.6 g/dL (13.5-17.5); IMMATURE GRAN ABSOLUTE AUTO 0.03 K/mm3 (0.00-0.10); IMMATURE GRAN PERCENT AUTO 1 % (0-1); LYMPHOCYTES ABSOLUTE AUTO 1.23 K/mm3 (0.84-5.20); LYMPHOCYTES PERCENT AUTO 21 % (21-46); MONOCYTES ABSOLUTE AUTO 0.51 K/mm3 (0.16-1.47); MONOCYTES PERCENT AUTO 9 % (4-13); Mean Corpuscular HGB Conc 29.9 g/dL (31.5-36.5); Mean Corpuscular Volume 94 fL (80-100); Mean Platelet Volume 10.1 fL (9.1-12.4); NEUTROPHILS PERCENT AUTO 62 % (41-73); Platelet Count 333 K/mm3 (150-400); RDW Coefficient Variation 14.7 % (11.7-14.2); Red Blood Cell Count 3.43 M/mm3 (4.30-5.90); White Blood Cell Count 5.84 K/mm3 (4.00-11.30)
[2020-07-16 05:43] LABS: Anion Gap 9 mmol/L (6-16); Blood Urea Nitrogen 24 mg/dL (8-24); Bun/Creatinine Ratio 39.1 (12.0-20.0); CO2, Blood 23 mmol/L (21-32); Calcium, Blood 8.2 mg/dL (8.5-10.1); Chloride, Blood 109 mmol/L (98-108); Creatinine, Blood 0.61 mg/dL (0.60-1.20); Glomerular Filtration Rate >60 (60-); Glucose, Blood 89 mg/dL (70-99); Potassium, Blood 3.7 mmol/L (3.5-5.5); Sodium, Blood 141 mmol/L (136-145)
--- NOTE | 2020-07-16 16:45 | NUR ---
ALERT TO SELF AND FAMILY (NOT SURE WHO HE LIVES WITH) AND SOMETIMES TO PLACE. ALL DRESSINGS CHANGED. BUTTOCK WOUNDS STILL TRICKLE BLEEDING. SUPRAPUBIC CATH PATENT TO GRAVITY. OSTOMY HAS SMALL AMOUNT OF BROWN FECAL MATERIAL. IS PASSING GAS. SLEPT MOST OF DAY. PATIENT UNSURE OF HOW AND WHY HE CAME IN. UNLABORED RESPIRATIONS. 3 PERSON ASSIST TO MOVE. TM
--- NOTE | 2020-07-16 16:53 | NUR ---
JORDY LEONG AWARE NO OUTPUT VIA COLOSTOMY. THIS SHIFT VERY SMALL AMOUNT, BUT NONE NOTED PREVIOUS SHIFTS. NO C/O PAIN OR NAUSEA. BOWEL TONES PRESENT.WCTM
--- NOTE | 2020-07-17 07:11 | NUR ---
SHIFT SUMMARY AOXSELF & PLACE @TIMES, ORIENTATION SEEMS TO GO IN/OUT. ONE POINT LAST NIGHT PT REPORTED HE WAS IN [place] GETTING THE OIL CHANGED IN HIS CAR. ALSO PT REPORTED THE REASON HE WAS TAKING TELE STICKERS OFF WAS BECAUSE THEY BELONGED TO HIS BROTHER & HIS BROTHER NEEDED THEM FOR HIS CAR. CONFUSED. ABLE TO FOLLOW SIMPLE DIRECTIONS. IRRITABLE @STAFF @TIMES. DRESSINGS ON BUTTOCKS WOUNDS CHANGED & SKIN CLEANSED. PT HAD MODERATE AMOUNT SANGUINOUS DRAINAGE FROM 3 WOUNDS ON BUTTOCKS HAD TO HOLD PRESSURE TO DECREASE BLEEDING. SUPERPUBIC CATH DRAINING ORANGE URINE. OSTOMY HAD SMALL HARD BROWN PEBBLE BM IN POUCH, GAVE MIRALAX & SENNA. PT REPORTED PAIN IN BACK OF NECK & HEAD, GAVE TYLENOL & TRAMADOL PER ORDERS. VSS. TELE NSR @83. CALL LIGHT & BED ALARM IN PLACE.
--- NOTE | 2020-07-17 09:44 | NUR ---
DR. SPENCE AWARE OF ST UP TO 120'S FOR ABOUT 20 MIN. EARLIER. WCTM
--- NOTE | 2020-07-17 16:15 | NUR ---
ALERT. INTERMITTENT CONFUSED. COOPERATIVE. ALL DRESSINGS CHANGED. CALCIUM ALGINATE USED ON PRESSURE ULCERS TO BUTTOCK. BUTTOCK FLOATED. SLEEPING MOST OF SHIFT. UNLABORED RESPIRATIONS. WCTM
--- NOTE | 2020-07-17 22:30 | NUR ---
AWAKE. TOLERATED MEDS WELL. IVF OF NS INFUSING TKO. WATCHING TV, GOLF BALL INSPECTOR EQUAL, UNABLE TO MOVE BLE. STATED THAT HE HAS NO FEELING FROM MID CHEST DOWN. ISOLATION PRECAUTIONS MAINTAINED. CALL LIGHT IN REACH
--- NOTE | 2020-07-18 03:59 | NUR ---
SHIFT SUMMARY AWAKE AT INTERVALS, IVF OF NS AT O, ANTIBIOTICS INFUSING PER MD ORDERS - SEE MAR FOR MEDICATION DETAILS. OSTOMY EMPTIED THIS SHIFT. SUPRAPUBIC CATH DRAINING. CURRENTLY RESTING QUIETLY. NO NOTED ACUTE DISTRESS AT THIS TIME. CALL LIGHT IN REACH. ISOLATION PRECAUTIONS MAINTAINED.DRESSINGS INTACT - SEE DOCUMENTATION
--- NOTE | 2020-07-18 14:20 | NUR ---
NEW PICTURES TAKEN OF ALL WOUNDS WITH DR. SPENCE SHOWN.
--- NOTE | 2020-07-18 16:41 | NUR ---
Spiritual care note: Mr. Gonzáles was pleasant and talkative. He told me he's neevr had children and did not have any family. When asked if he was lonely, he said 'no'. When asked about this hospitalization, he told me "I'm just trying to stay alive." Later in the conversation, he told me he had a brother, but they had not spoken for a long time. Mr. Gonzáles appeared to enjoy companionship and conversation. He allowed me to pray for him at conclusion of visit. He denied concerns for the future. I will remain available.
--- NOTE | 2020-07-18 17:49 | NUR ---
ALERT. ORIENTED BUT FORGETFUL. , SURGEON, IN TO VISIT. DR. BERMUDEZ ADVISED SURGICAL INTERVENTION NOT NEEDED AND TO TRY XEROFORM DRESSINGS TO BUTTOCK. PT TOLERATES DRESSING CHANGES WELL. COOPERATIVE. NEW IV PLACED. HIPS FLOATED MOST OF DAY. OSTOMY APPLIANCE CHANGED. GOOD APPETITE. UNLABORED RESPIRATIONS. WCTM
--- NOTE | 2020-07-18 21:39 | NUR ---
PT REFUSING TO KEEP TELEMETRY UNIT INTACT; JESSIE--AIRCRAFT MACHINIST VOICED NO SIGNIFICANT EVENTS PAST 48 HOURS NOTED; MACRINA MCCANN NP NOTIFIED WITH ORDERS TO DISCONTINUE DEVICE.
--- NOTE | 2020-07-19 05:30 | NUR ---
SHIFT SUMMARY: 74 Y/O OBESE MALE RESTED COMFORTABLY ALL SHIFT; PT ALERT AND ORIENTED X 2, ABLE TO FOLLOW SIMPLE VERBAL COMMANDS; PT VERY STUBBORN AT TIMES AND NEEDS ENCOURAGEMENT TO LET STAFF REPOSITION HIM IN BED HE TENDS TO NOT LIKE GETTING REPOSITIONED; PT HAS MULTIPLE WOUNDS THAT ARE COVERED WITH MEPLEX DRESSINGS THROUGHOUT ENTIRE BODY; COLOSTOMY DRAINING SOFT FORMED BROWN STOOL; SUPRAPUBIC CATHETER DRAINING CLOUDY YELLOW FLUID; BED ALARM APPLIED FOR SAFETY, BED LOW POSITION WITH CALL LIGHT AT SIDE.
[2020-07-19 16:07] LABS: Hematocrit 33.9 % (37.0-53.0); Hemoglobin 10.5 g/dL (13.5-17.5)
[2020-07-19 16:24] LABS: Anion Gap 5 mmol/L (6-16); Blood Urea Nitrogen 25 mg/dL (8-24); Bun/Creatinine Ratio 37.8 (12.0-20.0); CO2, Blood 29 mmol/L (21-32); Chloride, Blood 106 mmol/L (98-108); Creatinine, Blood 0.66 mg/dL (0.60-1.20); Glomerular Filtration Rate >60 (60-); Glucose, Blood 93 mg/dL (70-99); Potassium, Blood 4.8 mmol/L (3.5-5.5); Sodium, Blood 140 mmol/L (136-145)
--- NOTE | 2020-07-19 19:49 | NUR ---
alert at baseline, naknek, call light in reach, refused blood draws for most of day until nurse pointed out a need for lab work, rm air, saline locked, dressings changed and repositoned, bsr shared with noc nurse and pt
--- NOTE | 2020-07-19 22:45 | NUR ---
2000 PT RESTING COMFORTABLY IN BED; CHEERFUL.
--- NOTE | 2020-07-20 03:16 | NUR ---
SHIFT SUMMARY: 74 Y/O OBESE MALE RESTED COMFORTABLY ALL SHIFT; PT DENIES PAIN OR SOB; PTS MULTIPLE WOUNDS THROUGHOUT BODY REMAIN COVERED WITH MEPLEX DRESSINGS; SUPRAPUBIC CATHETER DRAINING CLEAR YELLOW FLUID; COLOSTOMY DRAINING SOFT BROWN STOOL; ALERT AND ORIENTED X 1, ABLE TO FOLLOW SIMPLE VERBAL COMMANDS; CONTACT ISOLATION MAINTAINED; BED ALARM APPLIED FOR SAFETY, BED LOW POSITION WITH CALL LIGHT AT SIDE.
--- NOTE | 2020-07-20 19:16 | NUR ---
SHIFT SUMMARY: NO ACUTE CHANGES TO REPORT THIS SHIFT. PT A&O X2; CALM AND COOPERATIVE WITH CARE. NO C/O PAIN THIS SHIFT. SUPRA-PUBIC CATHETER IN PLACE; PATENT & DRAINING. WOUND CARE PERFORMED ON X3 COCCYX/SACRUM WOUNDS; PT TOLERATED WELL. MULTIPLE WOUNDS TO ABD & BLE; DRESSINGS C/D/I. OSTOMY LLQ; C/D/I. IV ABX CONTINUING. AWAITING PLACEMENT. REPORT GIVEN TO ONCOMING RN.
--- NOTE | 2020-07-20 21:39 | NUR ---
2001 74 Y/O MALE RESTING COMFORTABLY IN BED; CHEERFUL; ALERT AND ORIENTED X2, ABLE TO FOLLOW SIMPLE VERBAL COMMANDS.
--- NOTE | 2020-07-21 03:00 | NUR ---
SHIFT SUMMARY: 74 Y/O OBESE MALE RESTED COMFORTABLY ALL SHIFT; THIS NURSE CHANGED COLOSTOMY BAG AFTER OLD BAG WAFER FELL OFF--FORMED DARK BROWN STOOL NOTED; PTS DRESSINGS TO ABD AND RECTAL REGION WERE ALL CHANGED INSTRUCTED; PTS RECTUM HAD DRIED RED DRAINAGE NOTED; PT IS ALERT AND ORIENTED X 2, ABLE TO FOLLOW SIMPLE VERBAL COMMANDS; SUPRAPUBIC CATHETER DRAINING CLEAR YELLOW FLUID; BED ALARM APPLIED FOR SAFETY, BED LOW POSITION WITH CALL LIGHT AT SIDE.
[2020-07-21] MEDS ORDERED: VISBIOME 112.51 EACH PO (11:30)
[2020-07-21] MEDS ORDERED: MIRALAX17 GM PO (11:30)
[2020-07-21] MEDS ORDERED: MENTHOL-ZINC OXIDE TOP (11:30)
[2020-07-21] MEDS ORDERED: CEPH500 PO (11:31)
--- NOTE | 2020-07-21 15:05 | NUR ---
PT DISCHARGED FROM THE UNIT. IV REMOVED. DISCHARGE INSTRUCTIONS REVIEWED WITH SON. PT LEFT VIA PERSONAL WHEEL CHAIR. MEDICATIONS FAXED TO PHARMACY
[2020-09-19] MEDS ORDERED: SILVER SULFADIA TOP (00:14)
[2020-09-24] MEDS ORDERED: CRANBERRY500 M1 PO (13:22)
[2020-09-24] MEDS ORDERED: DOCU100 PO (13:24)
[2020-09-24] MEDS ORDERED: OXYC5 PO (13:25)
[2020-09-24] MEDS ORDERED: MACROBID 100 M100 MG PO (13:25)
[2020-09-24] MEDS ORDERED: SENN187 PO (13:25)
== END 2020-07-21 13:40 | disposition home health service (06) | DRG 698 ==
LOC: ER 19:32 → MEDS 23:45 → ERHOLD 23:45 → MEDS 07-14 11:07
PROVIDERS: Internal Medicine; Physician Assistant; ADMIT Internal Medicine
DX: T83.511A Infection and inflammatory reaction due to indwelling urethral catheter, initial encounter (principal); L89.324 Pressure ulcer of left buttock, stage 4; L89.314 Pressure ulcer of right buttock, stage 4; A41.9 Sepsis, unspecified organism; G92 Toxic encephalopathy; G82.20 Paraplegia, unspecified; N17.9 Acute kidney failure, unspecified; I10 Essential (primary) hypertension; N39.0 Urinary tract infection, site not specified; Z87.891 Personal history of nicotine dependence; Z95.1 Presence of aortocoronary bypass graft; F03.90 Unspecified dementia, unspecified severity, without behavioral disturbance, psychotic disturbance, mood disturbance, and anxiety; Z93.3 Colostomy status; Z20.822 Contact with and (suspected) exposure to COVID-19
CPT/HCPCS: 36415; 71045; 74176; 80048; 80053; 81001; 83605; 85014; 85018; 85025; 85027; 85610; 85730; 87040; 87086; 93005; 93010; 96361; 96365; 96366; 97129; 97165; 99285-25; A9270; J0713; J1650; J7030; J7050; Q2038

== ENCOUNTER 2020-08-17 16:02 | Inpatient (IN) | payer OTHER, MEDICARE ==
[~2020-08-17] VITALS: Ht 177.8 cm; Wt 80.8 kg
[~2020-08-17 16:02] MED LIST changes: +ACET500 PO; +ANTIFUNGAL POWD71 GM TOP; +ASCO500 PO; +CEPH500 PO; +FERSU300 PO; +MENTHOL TOP; +MENTHOL-ZINC OXIDE TOP; +MIRALAX17 GM PO; +MIRTAZAPINE7.5 M1 PO; +MULVITA PO; +MUPIROCIN22 G2 TOP; +PANT40 PO; +SELENIUM 2.5% TOP; +SENN187 PO; +SENNA LAXATIVE8.6 MG PO; +SERT100 PO; +SODIUM CHLORID100 ML IR; +Sanctura20 MG PO; +TESTOSTERONE75 G1 TOP; +ZINC OXIDE TOP
[2020-08-17 16:29] LABS: Source, Urine Catheter
[2020-08-17 16:39] LABS: Appearance, Urine Cloudy (Clear); Bilirubin, Urine Neg (Neg); Blood, Urine 4+ (Neg); Color, Urine Yellow (P-Yellow); Glucose Qualitative, Urine Neg (Neg); Ketones, Urine 2+ (Neg); Leukocyte Esterase, Urine 3+ (Neg); Nitrite, Urine Pos (Neg); Protein, Urine 2+ (Neg); Specific Gravity, Urine 1.025 (1.003-1.022); Urobilinogen, Urine NORM (Normal)
[2020-08-17 16:52] LABS: White Blood Cells, Urine 50-100 /hpf (0-5)
[2020-08-17 16:53] LABS: Amorphous Light (0-Heavy); Bacteria Many /hpf; Squamous Epithelial Cells Many /hpf (Few)
[2020-08-17 16:58] LABS: BASOPHILS ABSOLUTE AUTO 0.03 K/mm3 (0.00-0.23); BASOPHILS PERCENT AUTO 0 % (0-2); EOSINOPHILS PERCENT AUTO 0 % (0-6); Hematocrit 38.5 % (37.0-53.0); Hemoglobin 11.6 g/dL (13.5-17.5); IMMATURE GRAN ABSOLUTE AUTO 0.06 K/mm3 (0.00-0.10); IMMATURE GRAN PERCENT AUTO 0 % (0-1); LYMPHOCYTES ABSOLUTE AUTO 0.69 K/mm3 (0.84-5.20); LYMPHOCYTES PERCENT AUTO 5 % (21-46); MONOCYTES ABSOLUTE AUTO 0.73 K/mm3 (0.16-1.47); MONOCYTES PERCENT AUTO 5 % (4-13); Mean Corpuscular HGB Conc 30.1 g/dL (31.5-36.5); Mean Corpuscular Volume 93 fL (80-100); Mean Platelet Volume 9.5 fL (9.1-12.4); NEUTROPHILS ABSOLUTE AUTO 13.92 K/mm3 (1.96-9.15); NEUTROPHILS PERCENT AUTO 90 % (41-73); Platelet Count 459 K/mm3 (150-400); RDW Coefficient Variation 14.5 % (11.7-14.2); RDW Standard Deviation 49.1 fL (35.1-46.3); Red Blood Cell Count 4.15 M/mm3 (4.30-5.90); White Blood Cell Count 15.43 K/mm3 (4.00-11.30)
[2020-08-17 17:25] LABS: Alanine Aminotransfer (ALT/SGP 16 U/L (12-78); Albumin, Blood 2.3 g/dL (3.4-5.0); Albumin/Globulin Ratio 0.4 (0.8-1.8); Alk Phos 98 U/L (50-136); Anion Gap 8 mmol/L (6-16); Aspartate Aminotrans (AST/SGOT 15 U/L (12-37); Bilirubin, Total 0.3 mg/dL (0.1-1.0); Blood Urea Nitrogen 24 mg/dL (8-24); Bun/Creatinine Ratio 53.1 (12.0-20.0); CO2, Blood 27 mmol/L (21-32); Calcium, Blood 12.4 mg/dL (8.5-10.1); Chloride, Blood 104 mmol/L (98-108); Creatinine, Blood 0.45 mg/dL (0.60-1.20); Globulin, Blood 5.4 g/dL (2.2-4.0); Glomerular Filtration Rate >60 (60-); Glucose, Blood 143 mg/dL (70-99); Potassium, Blood 4.6 mmol/L (3.5-5.5); Sodium, Blood 139 mmol/L (136-145); Total Protein, Blood 7.7 g/dL (6.4-8.2)
[2020-08-18 05:17] LABS: BASOPHILS ABSOLUTE AUTO 0.03 K/mm3 (0.00-0.23); BASOPHILS PERCENT AUTO 0 % (0-2); EOSINOPHILS ABSOLUTE AUTO 0.01 K/mm3 (0.00-0.68); EOSINOPHILS PERCENT AUTO 0 % (0-6); Hematocrit 32.7 % (37.0-53.0); Hemoglobin 9.9 g/dL (13.5-17.5); IMMATURE GRAN ABSOLUTE AUTO 0.06 K/mm3 (0.00-0.10); IMMATURE GRAN PERCENT AUTO 1 % (0-1); LYMPHOCYTES ABSOLUTE AUTO 1.45 K/mm3 (0.84-5.20); LYMPHOCYTES PERCENT AUTO 12 % (21-46); MONOCYTES ABSOLUTE AUTO 0.93 K/mm3 (0.16-1.47); MONOCYTES PERCENT AUTO 7 % (4-13); Mean Corpuscular HGB 27.8 pg (26.0-34.0); Mean Corpuscular HGB Conc 30.3 g/dL (31.5-36.5); Mean Corpuscular Volume 92 fL (80-100); Mean Platelet Volume 9.4 fL (9.1-12.4); NEUTROPHILS ABSOLUTE AUTO 10.09 K/mm3 (1.96-9.15); NEUTROPHILS PERCENT AUTO 80 % (41-73); Platelet Count 387 K/mm3 (150-400); RDW Coefficient Variation 14.3 % (11.7-14.2); RDW Standard Deviation 48.7 fL (35.1-46.3); Red Blood Cell Count 3.56 M/mm3 (4.30-5.90); White Blood Cell Count 12.57 K/mm3 (4.00-11.30)
[2020-08-18 06:10] LABS: Anion Gap 5 mmol/L (6-16); Blood Urea Nitrogen 19 mg/dL (8-24); Bun/Creatinine Ratio 38.4 (12.0-20.0); CO2, Blood 26 mmol/L (21-32); Calcium, Blood 10.4 mg/dL (8.5-10.1); Chloride, Blood 110 mmol/L (98-108); Glomerular Filtration Rate >60 (60-); Glucose, Blood 116 mg/dL (70-99); Potassium, Blood 4.4 mmol/L (3.5-5.5); Sodium, Blood 141 mmol/L (136-145)
--- NOTE | 2020-08-18 06:28 | NUR ---
PT ADMIT TO ROOM 337 FROM ER THIS SHIFT. PT IS ALERT, FORGETFUL AT TIMES, LIVES AT HOME WITH FAMILY. 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 MANY WOUNDS SEE CHART FOR PICS. BUTTOCKS AND COCCYX ARE RAW AND WOULD NOT TOLERATE MEPILEX DRESSING THAT WAS ATTEMPTED. PT HAD DRIED FECES ON ABDOMEN AND GROIN, DRIED FOOD STUCK IN BLANKETS FROM HOME, AND COULD NOT REMEMBER LAST TIME HE WAS BATHED. SORES HAD VERY FOUL ODOR TO THEM WERE AND VERY MOIST.
--- NOTE | 2020-08-18 09:00 | NUR ---
PT QUIET, PLEASANT COOP A/O X3, FORGETFUL SOME DETAILS. SUPRAPUBIC CATH CLEANED. INTAT. DRAINING YELLOW CLOUDY FLUID. MULT WOUNDS. KNEES, ABD, CALFS, BUTTOCKS. NO C/O PAIN, SOME NAUSEA, MEDICATED. H/R REG, NO MURMER NOTED. PER TELE NSR AT 92 OCC PVC'S. LUNGS CLEAR, RESP EASY, UNLABORED. ON RA.. BT NOTED, COLOSTOMY BAG INTACT. LLQ. PT TURN Q2 IS PARAPLEGIC. HAS SOME UPPER BODY MOVEMENT. BED IN LOW POSITION, ROGER LITE IN REACH, CALLS APPROP
--- NOTE | 2020-08-18 14:37 | NUR ---
OOZING LITE BLOOD NOTED ON CHANGE AND TURN ON BOTTOM. DR NOTIFIED. OKAY MEPILEX NEEDED. QOULD APPRECIATE GOLF [employer]UB HEAD INSPECTOR CONSULT FOR IDEAS.
--- NOTE | 2020-08-18 16:00 | NUR ---
SPOKE TO WOUND NURSEKAITLYN. SPOKE TO DR BARRIGA. ORDERS MADE
--- NOTE | 2020-08-18 17:51 | NUR ---
PT PLEASANT TODAY. DID WOUND CHANGING TODAY. NEW WOUND ORDERS. PT STATES JUST NOT INTERESTED IN EATING TODAY. NO OTHER CONCERNS NOTED TODAY. BED IN LOW POSITION, CALL LITE IN REACH. BED ALARM ON FOR SAFETY.
--- NOTE | 2020-08-19 07:24 | NUR ---
SHIFT SUMMARY: PATIENT HAS NO PAIN FROM EXTENSIVE WOUNDS. VSS, T&P Q2 H, POOR APPETITE ONLY SIPS OF WATER AT A TIME. CLEMENT WAS GIVEN WITH MUCH ENCOURAGEMENT. NO OUT PUT OR FLATUS FROM OSTOMY. SUPRA PUBIC CATH PUT OUT 750 ML CLEAR YELLOW URINE.
[2020-08-19 11:10] LABS: BASOPHILS ABSOLUTE AUTO 0.05 K/mm3 (0.00-0.23); BASOPHILS PERCENT AUTO 1 % (0-2); EOSINOPHILS ABSOLUTE AUTO 0.34 K/mm3 (0.00-0.68); EOSINOPHILS PERCENT AUTO 4 % (0-6); Hematocrit 32.4 % (37.0-53.0); Hemoglobin 9.6 g/dL (13.5-17.5); IMMATURE GRAN ABSOLUTE AUTO 0.07 K/mm3 (0.00-0.10); IMMATURE GRAN PERCENT AUTO 1 % (0-1); LYMPHOCYTES ABSOLUTE AUTO 0.98 K/mm3 (0.84-5.20); LYMPHOCYTES PERCENT AUTO 11 % (21-46); MONOCYTES ABSOLUTE AUTO 0.66 K/mm3 (0.16-1.47); MONOCYTES PERCENT AUTO 7 % (4-13); Mean Corpuscular HGB Conc 29.6 g/dL (31.5-36.5); Mean Corpuscular Volume 95 fL (80-100); Mean Platelet Volume 9.4 fL (9.1-12.4); NEUTROPHILS ABSOLUTE AUTO 7.24 K/mm3 (1.96-9.15); NEUTROPHILS PERCENT AUTO 78 % (41-73); Platelet Count 341 K/mm3 (150-400); RDW Coefficient Variation 14.6 % (11.7-14.2); RDW Standard Deviation 50.6 fL (35.1-46.3); Red Blood Cell Count 3.43 M/mm3 (4.30-5.90); White Blood Cell Count 9.34 K/mm3 (4.00-11.30)
[2020-08-19 11:30] LABS: Albumin, Blood 1.9 g/dL (3.4-5.0); Anion Gap 3 mmol/L (6-16); Blood Urea Nitrogen 16 mg/dL (8-24); CO2, Blood 31 mmol/L (21-32); Calcium, Blood 9.7 mg/dL (8.5-10.1); Chloride, Blood 108 mmol/L (98-108); Creatinine, Blood 0.42 mg/dL (0.60-1.20); Glomerular Filtration Rate >60 (60-); Glucose, Blood 105 mg/dL (70-99); Magnesium, Blood 1.3 mg/dL (1.6-2.4); Phosphorus, Blood 2.7 mg/dL (2.5-4.9); Potassium, Blood 3.5 mmol/L (3.5-5.5); Sodium, Blood 142 mmol/L (136-145)
--- NOTE | 2020-08-19 12:18 | NUR ---
DRESSED WOUNDS THHIS AM. ALSO GAVE THE GI COCTAIL. PT STATES DID NUMB WELL. STOPPED PAIN AT THAT TIME. TRIED SOME BITE LUNCH. STATES SOON HIT STOMACH, IT BURNED FROM STOMACH TO ESOPHAGAS AREA. FEELS PIN AT TOP OF STOMACH AREA ON TOP RT OF ABD. WILL NOTIFIY
--- NOTE | 2020-08-19 12:31 | NUR ---
SPOKE TO DR BARRIGA. RE ABD AND ESOPHAGUS PAIN. ORDERS FOR NPO MIDNITE COLLEEN PALACIOS BARRIUM SWALLOW TOMORROW. D5 1/2 NS AT 75 FLUIDS
--- NOTE | 2020-08-19 17:49 | NUR ---
PT EATING VERY LITTLE TODAY . SOME ENSURE. STATES ESOPHAGEAL TO TOP OF STOMACH PAIN WHEN SWALLOWS. DISCUSSED WITH DR BARRIGA. WILL DO BARRIUM SWALLOW TOMORROW. SON IN TO SEE PT TODAY. IV FLUIDS CHANGED TODAY. PT IS PARAAPLEGIC, HAS SOME UPPER BODY MOVEMENT. NO FEELING FROM UPPER MID ABD DOWN. NO OTHER CONCERNS NOTED. BED IN LOW POSITION, CALL LITE IN REACH, BED ALARM ON FOR SAFETY.
--- NOTE | 2020-08-20 08:00 | NUR ---
REFUSING LABS PT REFUSING LABS THIS AM. PT REVIOUSLY REFUSED LAB PER REPORT AND STATED HE WOULD LIKE FOR THEM TO RETURN LATER. LAB AGAIN ATTEMPTED TO DRAW THE PT. PT REFUSED THEM AT 0800. THIS RN ENCOURAGED PT & EDUCATED HIM ON WHY BLOOD IS NEEDED IN RELATION TO HIS CARE. PT REPLIED BY STATING "NO ONE IS POKING ME RIGHT NOW".
--- NOTE | 2020-08-20 08:14 | NUR ---
SHIFT SUMMARY: PATIENT IS RESISTANT TO TURNING AT TIMES AND IS EDUCATED ON THE IMPORTANCE OF THIS AND WOUND HEALING. UNABLE TO TOLERATE FULL DOSE OF CLEMENT. VSS. REPORTED ESOPHAGEAL BURNING, DR VELEZ WAS CALLED ORDER FOR TUMS WAS OBTAINED. WOUND CARE WAS DONE PER WOUND CARE ORDERS, NO TAPE USE, SURROUNDING SKIN IS REDDENED. COLOSTOMY HAS NO ACTIVITY OR FLATUS OBSERVED.
--- NOTE | 2020-08-20 11:30 | NUR ---
UPDATE/ST EVAL: PT SEEN BY ST THIS AM FOR MENTAL EXAM. PT SCORED 10/[address] NOTE. PT REFUSED TO PARTICIPATE IN SWALLOW EVAL STATING "I CAN'T DO ANYTHING SITTING UP THIS HIGH". PT BED WAS PLACED IN THE CHAIR POSITION & HE WAS SITTING UPRIGHT. PT EDUCATED BY ST THAT HE MUST SIT UPRIGHT TO PROTECT THIS LUNGS WHEN HE SWALLOWS. PT SEEMS NOT TO UNDERSTAND. ST PLANS TO COME BACK TOMORROW TO SEE PT. FOR NOW HE REMAINS NPO. PT UPSET THAT HE CANNOT EAT. PT EXPLAINED WHY WE ARE WAITING FOR HIM TO EAT. PT ANGRY AND SEEMS TO NOT UNDERSTAND WHY HE REMAINS NPO. SPOKE WITH DR. BARRIGA ABOUT PT REFUSAL FOR LABS THIS AM. DR. BARRIGA ORDERED TO [facility]CEL [facility] AND GET THEM TOMORROW. DR. BARRIGA AWARE OF EVENTS RELATED TO THE ST EVENT AND HOW POOR THE PTS UNDERSTANDING IS.
--- NOTE | 2020-08-20 17:02 | NUR ---
SHIFT SUMMARY SEE PREVIOUS NOTE ABOUT ST THERAPY. ST TO COMPLETE A SWALLOW EVAL TOMORROW. NPO FOR NOW. PT REFUSED AM LABS AND SOME PERSONAL CARE THIS MORNING. MORE COMPLIANT LATER IN THE DAY. PT PARTICIPATED IN BEDBATH AND WOUND CARE TODAY. DRESSINGS ON SACRUM, ABD, AND LEGS CHANGED. OSTOMY BAG CHANGED. LITTLE OUTPUT WITH DARK BROWN SOFT STOOL. PT IS PASSING A SMALL ABOUT OF GAS. PT HAS TOLERATED REPOSITIONS MOST THE DAY. NAPPED MOST THE AFTERNOON. NO OTHER ACUTE CHANGE IN ASSESSMENT AT THIS TIME. VS REVIEWED. CALL LIGHT IN REACH. PT SLEEPING IN BED AT THIS TIME.
--- NOTE | 2020-08-20 21:49 | NUR ---
held oral meds pt is NPO had barium swallow & speech therapy has not cleared for oral intake. PT keeps head under covers seems withdrawn. Warm blanker provided. Has SP cath draining clear light urine IVF infusing. No output from colostomy. PT has multiple wounds dcub ulcers.
--- NOTE | 2020-08-21 04:54 | NUR ---
Pt continues NPO, had bariaum swallow but not cleared by Speech therapy for oral intake. Multiple skin issues in paraplegic. Flat effect withdrawn. Spent large amt of 12 hour shift with head under covers.
--- NOTE | 2020-08-21 18:02 | NUR ---
SHIFT SUMMARY DRESSING CHANGED TO BUTTOCKS. SITE RED/RAW/OPEN DRY AND PEELING SKIN IN PLACES, BLEEDING IN 1 SPOT ON L BUTTOCK AND AROUND SLOUGH AREAS ON R BUTTOCK. CREAM APPLIED TO INTACT RED AND IRRITATED SKIN WITH DRESSINGS APPLIED TO AREAS ABLE TO BE COVERED WITH NONSTICK DRESSING. DRESSINGS TO ABDOMEN DRY AND INTACT AND REMAINED. R OUTER CALF WOUND WITH NO DISCHARGE. MULTIPLBE SMALL OPEN AREAS SCATTERED ALL OVER BODY. COMMENTING ABOUT TAKING HIS MEDS ONE AT A TIME IN APPLESAUCE AND REPORTING HE HAS NEVER HAD A PROBLEM WITH SWALLOWING. LOOKED AT BOARD TO LOCATE DATE WHEN ASKED AND WOULDN'T ANSWER QUESTION OF WHERE HE WAS. DID MAKE COMMENTS ABOUT FAMILY TALKING TO HIM TODAY BUT PHONE HASN'T BEEN WITHIN PTS REACH. ATTEMPTED TO KEEP HIM ON HIS SIDE BUT FOUND PILLOWS REMOVED AND PT RETURNED TO HIS BACK. REMINDED OF IMPORTANCE OF STAYING ON HIS SIDE TO HEAL BUTTOCK. REFUSED TO TAKE CLEMENT FOR WOUND HEALING.
[2020-08-22] MEDS ORDERED: ACET325 PO (12:30)
[2020-08-22] MEDS ORDERED: JUVEN PACKET1 EAC3 (12:31)
[2020-08-22] MEDS ORDERED: CEFP200 PO (12:32)
[2020-08-22] MEDS ORDERED: TUMS500 MG PO (12:34)
[2020-08-22] MEDS ORDERED: MENTHOL-CAMPHO120 GM TOP (12:35)
[2020-08-22] MEDS ORDERED: NYSTATIN100000 UN1 SS (12:36)
[2020-08-22] MEDS ORDERED: ONDA4 PO (12:37)
[2020-08-22] MEDS ORDERED: Silvadene20 GM TOP (12:38)
[2020-08-22] MEDS ORDERED: VISBIOME 112.51 EACH PO (12:38)
--- NOTE | 2020-08-22 17:30 | NUR ---
DISCHARGE INSTRUCTIONS COMPLETED AND DISCUSSED WITH PTS SON AND HIM EXPRESSING UNDERSTANDING. [facility] SONS REQUEST. SON BROUGHT PTS W/C AND LIFT SLING TO TRANSITION HIM INTO HIS CHAIR. TO [facility] VIA W/C.
--- NOTE | 2020-08-22 19:58 | NUR ---
08/22/201954 This policy writer in patients chart to answer discharge meds questions of son.
[2020-09-19] MEDS ORDERED: SILVER SULFADIA TOP (00:14)
[2020-09-24] MEDS ORDERED: CRANBERRY500 M1 PO (13:22)
[2020-09-24] MEDS ORDERED: DOCU100 PO (13:24)
[2020-09-24] MEDS ORDERED: SENN187 PO (13:25)
[2020-09-24] MEDS ORDERED: OXYC5 PO (13:25)
[2020-09-24] MEDS ORDERED: MACROBID 100 M100 MG PO (13:25)
== END 2020-08-22 17:02 | disposition home health service (06) | DRG 698 ==
LOC: ER 16:02 → MEDS 19:51
PROVIDERS: Family Medicine; Physician Assistant; ADMIT Family Medicine
DX: T83.518A Infection and inflammatory reaction due to other urinary catheter, initial encounter (principal); L89.893 Pressure ulcer of other site, stage 3; L89.894 Pressure ulcer of other site, stage 4; A41.9 Sepsis, unspecified organism; G92 Toxic encephalopathy; N39.0 Urinary tract infection, site not specified; G82.20 Paraplegia, unspecified; L97.819 Non-pressure chronic ulcer of other part of right lower leg with unspecified severity; I10 Essential (primary) hypertension; E83.52 Hypercalcemia; D63.8 Anemia in other chronic diseases classified elsewhere; L89.322 Pressure ulcer of left buttock, stage 2; L89.890 Pressure ulcer of other site, unstageable; D47.3 Essential (hemorrhagic) thrombocythemia; L89.312 Pressure ulcer of right buttock, stage 2; L89.152 Pressure ulcer of sacral region, stage 2; F03.90 Unspecified dementia, unspecified severity, without behavioral disturbance, psychotic disturbance, mood disturbance, and anxiety; R13.10 Dysphagia, unspecified; E86.0 Dehydration; Y83.8 Other surgical procedures as the cause of abnormal reaction of the patient, or of later complication, without mention of misadventure at the time of the procedure; K21.9 Gastro-esophageal reflux disease without esophagitis; Z88.5 Allergy status to narcotic agent; Z88.8 Allergy status to other drugs, medicaments and biological substances; Z95.1 Presence of aortocoronary bypass graft; Z93.3 Colostomy status; Z87.891 Personal history of nicotine dependence
CPT/HCPCS: 36415; 74176; 74220; 80048; 80053; 80069; 81001; 83605; 83735; 84443; 85025; 87040; 87077; 87086; 87186; 92523; 92526; 92610; 93005; 93010; 96365; 99285-25; A9270; C9113; J0696; J0713; J1650; J2405; J3475; J7030; J7042; J7120

== ENCOUNTER 2020-08-27 19:59 | Emergency (ER) | payer OTHER, MEDICARE ==
[~2020-08-27] VITALS: Ht 170.2 cm; Wt 74.8 kg
[~2020-08-27 19:59] MED LIST changes: +JUVEN PACKET1 EAC3; +MENTHOL-CAMPHO120 GM TOP; +NYSTATIN100000 UN1 SS; +ONDA4 PO
[2020-08-27 22:33] LABS: Source, Urine Catheter
[2020-08-27 22:41] LABS: Appearance, Urine Cloudy (Clear); Blood, Urine 4+ (Neg); Color, Urine Yellow (P-Yellow); Glucose Qualitative, Urine Neg (Neg); Ketones, Urine 3+ (Neg); Leukocyte Esterase, Urine 3+ (Neg); Nitrite, Urine Neg (Neg); Protein, Urine 3+ (Neg); Specific Gravity, Urine 1.015 (1.003-1.022); Urobilinogen, Urine 1+ (Normal)
[2020-08-27 22:46] LABS: Bilirubin, Urine 1+ (Neg)
[2020-08-27 22:47] LABS: Bacteria Many /hpf; Red Blood Cells, Urine 0-2 /hpf (0-2); Squamous Epithelial Cells Few /hpf (Few); White Blood Cells, Urine TNTC /hpf (0-5); Yeast/Fungi Urine Few /hpf
[2020-08-27 23:32] LABS: BASOPHILS ABSOLUTE AUTO 0.05 K/mm3 (0.00-0.23); BASOPHILS PERCENT AUTO 1 % (0-2); EOSINOPHILS ABSOLUTE AUTO 0.42 K/mm3 (0.00-0.68); EOSINOPHILS PERCENT AUTO 5 % (0-6); Hematocrit 27.9 % (37.0-53.0); Hemoglobin 8.5 g/dL (13.5-17.5); IMMATURE GRAN ABSOLUTE AUTO 0.02 K/mm3 (0.00-0.10); IMMATURE GRAN PERCENT AUTO 0 % (0-1); LYMPHOCYTES PERCENT AUTO 16 % (21-46); MONOCYTES ABSOLUTE AUTO 0.52 K/mm3 (0.16-1.47); MONOCYTES PERCENT AUTO 6 % (4-13); Mean Corpuscular HGB Conc 30.5 g/dL (31.5-36.5); Mean Corpuscular Volume 92 fL (80-100); Mean Platelet Volume 9.1 fL (9.1-12.4); NEUTROPHILS ABSOLUTE AUTO 6.07 K/mm3 (1.96-9.15); NEUTROPHILS PERCENT AUTO 73 % (41-73); Platelet Count 382 K/mm3 (150-400); RDW Coefficient Variation 14.6 % (11.7-14.2); RDW Standard Deviation 49.1 fL (35.1-46.3); Red Blood Cell Count 3.04 M/mm3 (4.30-5.90); White Blood Cell Count 8.38 K/mm3 (4.00-11.30)
[2020-08-27 23:50] LABS: Alanine Aminotransfer (ALT/SGP 16 U/L (12-78); Albumin, Blood 2.1 g/dL (3.4-5.0); Albumin/Globulin Ratio 0.4 (0.8-1.8); Alk Phos 87 U/L (50-136); Anion Gap 4 mmol/L (6-16); Aspartate Aminotrans (AST/SGOT 33 U/L (12-37); Bilirubin, Total 0.4 mg/dL (0.1-1.0); Blood Urea Nitrogen 10 mg/dL (8-24); Bun/Creatinine Ratio 23.5 (12.0-20.0); CO2, Blood 31 mmol/L (21-32); Calcium, Blood 8.7 mg/dL (8.5-10.1); Chloride, Blood 104 mmol/L (98-108); Creatinine, Blood 0.43 mg/dL (0.60-1.20); Globulin, Blood 4.9 g/dL (2.2-4.0); Glomerular Filtration Rate >60 (60-); Glucose, Blood 83 mg/dL (70-99); Potassium, Blood 4.6 mmol/L (3.5-5.5); Sodium, Blood 139 mmol/L (136-145)
[2020-08-28] MEDS ORDERED: CEFP200 PO (00:02)
[2020-09-19] MEDS ORDERED: SILVER SULFADIA TOP (00:14)
[2020-09-24] MEDS ORDERED: CRANBERRY500 M1 PO (13:22)
[2020-09-24] MEDS ORDERED: DOCU100 PO (13:24)
[2020-09-24] MEDS ORDERED: OXYC5 PO (13:25)
[2020-09-24] MEDS ORDERED: SENN187 PO (13:25)
[2020-09-24] MEDS ORDERED: MACROBID 100 M100 MG PO (13:25)
== END 2020-08-28 01:38 | disposition home or self-care (01) ==
LOC: ER 19:59
PROVIDERS: Emergency Medicine; Physician Assistant
DX: T83.511A Infection and inflammatory reaction due to indwelling urethral catheter, initial encounter (principal); I10 Essential (primary) hypertension; Z79.899 Other long term (current) drug therapy; Z88.5 Allergy status to narcotic agent
CPT/HCPCS: 51798; 80053; 81001; 85025; 87077; 87086; 87106; 87186; 96365; 99283-25; J0696

== ENCOUNTER 2020-10-06 09:03 | Emergency (ER) | payer OTHER, MEDICARE ==
[~2020-10-06] VITALS: Ht 172.7 cm; Wt 74.8 kg
[~2020-10-06 09:03] MED LIST changes: +CRANBERRY500 M1 PO; +DOCU100 PO; +MACROBID 100 M100 MG PO; +OXYC5 PO; +SILVER SULFADIA TOP
[2020-10-06 10:49] LABS: Source, Urine Catheter
[2020-10-06 10:54] LABS: Blood, Urine 5+ (Neg); Glucose Qualitative, Urine Neg (Neg); Ketones, Urine 2+ (Neg); Leukocyte Esterase, Urine 3+ (Neg); Nitrite, Urine Neg (Neg); Protein, Urine 2+ (Neg); Urobilinogen, Urine 1+ (Normal)
[2020-10-06 11:06] LABS: Appearance, Urine Cloudy (Clear); Bilirubin, Urine 1+ (Neg); Color, Urine Yellow (P-Yellow)
[2020-10-06 11:07] LABS: Mucus Mod (0-Heavy); White Blood Cells, Urine 50-100 /hpf (0-5)
[2020-10-06 11:08] LABS: Bacteria Mod /hpf; Red Blood Cells, Urine 25-50 /hpf (0-2); Squamous Epithelial Cells Few /hpf (Few)
== END 2020-10-06 13:31 | disposition home or self-care (01) ==
LOC: ER 09:03
PROVIDERS: Physician Assistant
DX: R82.81 Pyuria (principal); I10 Essential (primary) hypertension; Z96.0 Presence of urogenital implants; Z79.899 Other long term (current) drug therapy; Z95.1 Presence of aortocoronary bypass graft
CPT/HCPCS: 81001; 87077; 87086; 87106; 87186; 99283; A9270

== ENCOUNTER 2020-11-10 21:19 | Inpatient (IN) | payer OTHER, MEDICARE ==
[~2020-11-10] VITALS: Ht 172.7 cm; Wt 69.7 kg
[2020-11-10 22:31] LABS: BASOPHILS ABSOLUTE AUTO 0.05 K/mm3 (0.00-0.23); BASOPHILS PERCENT AUTO 1 % (0-2); EOSINOPHILS ABSOLUTE AUTO 0.15 K/mm3 (0.00-0.68); EOSINOPHILS PERCENT AUTO 2 % (0-6); Hematocrit 32.9 % (37.0-53.0); Hemoglobin 10.3 g/dL (13.5-17.5); IMMATURE GRAN ABSOLUTE AUTO 0.04 K/mm3 (0.00-0.10); IMMATURE GRAN PERCENT AUTO 1 % (0-1); LYMPHOCYTES PERCENT AUTO 17 % (21-46); MONOCYTES ABSOLUTE AUTO 0.83 K/mm3 (0.16-1.47); MONOCYTES PERCENT AUTO 10 % (4-13); Mean Corpuscular HGB 28.4 pg (26.0-34.0); Mean Corpuscular HGB Conc 31.3 g/dL (31.5-36.5); Mean Corpuscular Volume 91 fL (80-100); Mean Platelet Volume 9.1 fL (9.1-12.4); NEUTROPHILS ABSOLUTE AUTO 5.97 K/mm3 (1.96-9.15); NEUTROPHILS PERCENT AUTO 71 % (41-73); Platelet Count 479 K/mm3 (150-400); RDW Coefficient Variation 17.5 % (11.7-14.2); RDW Standard Deviation 58.8 fL (35.1-46.3); Red Blood Cell Count 3.63 M/mm3 (4.30-5.90); White Blood Cell Count 8.44 K/mm3 (4.00-11.30)
[2020-11-10 22:58] LABS: Alanine Aminotransfer (ALT/SGP 7 U/L (12-78); Albumin, Blood 1.4 g/dL (3.4-5.0); Albumin/Globulin Ratio 0.3 (0.8-1.8); Alk Phos 129 U/L (50-136); Anion Gap 11 mmol/L (6-16); Aspartate Aminotrans (AST/SGOT 10 U/L (12-37); Bilirubin, Total 0.5 mg/dL (0.1-1.0); Blood Urea Nitrogen 14 mg/dL (8-24); Bun/Creatinine Ratio 32.3 (12.0-20.0); CO2, Blood 25 mmol/L (21-32); Calcium, Blood 7.7 mg/dL (8.5-10.1); Chloride, Blood 99 mmol/L (98-108); Creatinine, Blood 0.43 mg/dL (0.60-1.20); Globulin, Blood 4.6 g/dL (2.2-4.0); Glomerular Filtration Rate >60 (60-); Glucose, Blood 82 mg/dL (70-99); Potassium, Blood 3.4 mmol/L (3.5-5.5); Sodium, Blood 135 mmol/L (136-145)
[2020-11-11 01:12] LABS: Source, Urine Catheter
[2020-11-11 01:17] LABS: Appearance, Urine Cloudy (Clear); Bilirubin, Urine Neg (Neg); Blood, Urine 4+ (Neg); Color, Urine Yellow (P-Yellow); Glucose Qualitative, Urine Neg (Neg); Ketones, Urine 3+ (Neg); Leukocyte Esterase, Urine 3+ (Neg); Nitrite, Urine Pos (Neg); Protein, Urine 3+ (Neg); Specific Gravity, Urine 1.015 (1.003-1.022); Urobilinogen, Urine NORM (Normal)
[2020-11-11 01:23] LABS: White Blood Cells, Urine TNTC /hpf (0-5)
[2020-11-11 01:24] LABS: Bacteria Many /hpf; Red Blood Cells, Urine 0-2 /hpf (0-2); Squamous Epithelial Cells Mod /hpf (Few)
--- NOTE | 2020-11-11 05:45 | NUR ---
PATIENT ARRIVED FROM ER AT 0400 TODAY 11/11/20. PATIENT CAME IN FOR SEPSIS. PATIENT IS BEING TAKEN CARE OF BY SON. PATIENT IS AWAKE AND ALERT BUT IS ONLY REALLY ORIENTED TO SELF AND SURROUNDINGS. HE BECOMES MORE CONFUSED WHEN ASKED QUESTIONS. PATIENT IS A PARAPLEGIC FROM A T4 FX. MAX ASSIST 2-3 PERSON TURNS. HE ARRIVED WITH IV PULLED OUT WITH BLOOD OVER HIS ARM AND STOMACH. ABRASIONS SCATTERED THROUGHOUT EXTREMITIES. BILATERAL PRESSURE ULCERS TO HEELS/TOES. RIGHT KNEE HAS AN ULCER OPEN. COCCYX HAS AN UNSTAGEABLE PRESSURE ULCER THAT WAS ACTIVELY BLEEDING AND SATURATING THE SHEETS. SUPRAPUBIC CATHETER IS PATENT AND DRAINING INTO LOYOLA BAG. NO KINKS IN TUBING. HE HAS A COLOSTOMY THAT IS INTACT WITH SMALL AMOUNT OF OUTPUT. PATIENT WAS GIVEN A BED BATH AND COVERED WOUNDS/ULCERS APPROPRIATELY. WOUND CONSULT WAS PLACED. PATIENT IS CURRENTLY LAYING IN BED. CALL LIGHT WITHIN REACH. BED ALARM ON.
[2020-11-11 07:16] LABS: BASOPHILS ABSOLUTE AUTO 0.03 K/mm3 (0.00-0.23); BASOPHILS PERCENT AUTO 1 % (0-2); EOSINOPHILS PERCENT AUTO 2 % (0-6); Hemoglobin 8.3 g/dL (13.5-17.5); IMMATURE GRAN ABSOLUTE AUTO 0.03 K/mm3 (0.00-0.10); IMMATURE GRAN PERCENT AUTO 1 % (0-1); LYMPHOCYTES ABSOLUTE AUTO 0.83 K/mm3 (0.84-5.20); LYMPHOCYTES PERCENT AUTO 14 % (21-46); MONOCYTES ABSOLUTE AUTO 0.54 K/mm3 (0.16-1.47); MONOCYTES PERCENT AUTO 9 % (4-13); Mean Corpuscular HGB Conc 30.7 g/dL (31.5-36.5); Mean Corpuscular Volume 91 fL (80-100); Mean Platelet Volume 9.1 fL (9.1-12.4); NEUTROPHILS ABSOLUTE AUTO 4.53 K/mm3 (1.96-9.15); NEUTROPHILS PERCENT AUTO 75 % (41-73); Platelet Count 315 K/mm3 (150-400); RDW Coefficient Variation 17.5 % (11.7-14.2); RDW Standard Deviation 59.2 fL (35.1-46.3); Red Blood Cell Count 2.96 M/mm3 (4.30-5.90); White Blood Cell Count 6.06 K/mm3 (4.00-11.30)
[2020-11-11 07:35] LABS: Alanine Aminotransfer (ALT/SGP 7 U/L (12-78); Albumin, Blood 1.8 g/dL (3.4-5.0); Albumin/Globulin Ratio 0.5 (0.8-1.8); Alk Phos 97 U/L (50-136); Anion Gap 10 mmol/L (6-16); Aspartate Aminotrans (AST/SGOT 9 U/L (12-37); Bilirubin, Total 0.6 mg/dL (0.1-1.0); Blood Urea Nitrogen 10 mg/dL (8-24); Bun/Creatinine Ratio 25.8 (12.0-20.0); CO2, Blood 23 mmol/L (21-32); Chloride, Blood 105 mmol/L (98-108); Creatinine, Blood 0.39 mg/dL (0.60-1.20); Globulin, Blood 3.4 g/dL (2.2-4.0); Glomerular Filtration Rate >60 (60-); Glucose, Blood 81 mg/dL (70-99); Potassium, Blood 3.4 mmol/L (3.5-5.5); Sodium, Blood 138 mmol/L (136-145); Total Protein, Blood 5.2 g/dL (6.4-8.2)
--- NOTE | 2020-11-11 12:50 | NUR ---
UPDATE MESSAGE LEFT FOR ADULT PROTECTIVE SERVICES.
--- NOTE | 2020-11-11 13:39 | NUR ---
PT ALERT AND ORIENTED X3. UNABLE TO STATE DATE AND TIME. ABLE TO ANSWER CARE QUESTIONS APPROPRIATELY. LUNGS SOUNDING CLEAR AND DIM IN BASES. BOWEL TONES PRESENT. TELE SHOWING AFIB WITH HR 80'S. DENIES CHEST PAIN/PRESSURE. DENIES PAIN OVERALL. COMPLAINS OF DISCOMFORT ASSOCIATED WITH NECK/HEAD WHICH WAS RELIEVED BY REPOSITIONING. Q2 TURNING IN PLACE AND NEEDED. BED BATH GIVEN THIS AM. CENTRAL LINE IN PLACE INFUSING NORMAL SALINE. SUPRAPUBIC CATH DRAINING CLEAR/YELLOW URINE TO GRAVITY. NO KINKS OR LOOPS. COLOSTOMY IN PLACE, REPLACED THIS AM. PICTURE IN CHART OF COLOSTOMY AND SURROUNDING WOUNDS. COLOSTOMY DRAINING BROWN OUTPUT. PT NOT INTERESTED IN EATING THIS AM AND AFTERNOON. WATER CONTINUALLY OFFERED AND ENCOURAGED. PT SWALLOWING WELL, NO INDICATIONS OF ASPIRATION. MECHANICAL SOFT DIET ORDERED, PT DOES NOT HAVE DENTURES. VITAL SIGNS STABLE. WOUNDS PRESENT THROUGHOUT THE BODY. PICTURES IN CHART. LARGE COCCYX PRESSURE ULCER WOUND. DR CARRILLO IN TO SEE. AT THIS TIME LEAVING WOUND UNDRESSED WITH ABDOMINAL BINDERS AND PADDING BELOW. OFF LOADING WITH PILLOWS. REDNESS THROUGHOUT GROIN. PRESSURE ULCERS TO LEFT HEEL/BACK OF LEG. REDNESS TO BILATERAL CALVES. WOUNDS SURROUNDING COLOSTOMY AND SCATTERED THROUGHOUT ABDOMEN. WOUNDS TO BILATERAL FEET. WHEN QUESTIONS ON HOW WOUNDS PROGRESSED PATIENT STATED "THEY JUST SHOWED UP". PT STATES HIS SON TAKES CARE OF HIM. BILATERAL SOFT, NONVIOLENT WRIST RESTRAINTS IN PLACE TO PROTECT FROM LINES AND TUBING AND INJURY TO SELF. PT PULLING AT LINES AND TUBING. CALL LIGHT IN REACH AND PT EDUCATED ON USEAGE. PT ABLE TO VERBALIZE WHAT BUTTON HE WOULD PRESS FOR ASSISTANCE.
--- NOTE | 2020-11-11 14:21 | NUR ---
UPDATE: 10 BEAT RUN OF VTACH. NONSYMPTOMATIC. WILL CONTINUE TO MONITOR. TELE SHOWING AFIB WITH HR 70-80'S. PT RESTING IN BED AT THIS TIME. CALL LIGHT IN REACH.
--- NOTE | 2020-11-11 17:57 | NUR ---
NO ACUTE CHANGES. SON IN TO VISIT. SON REPORTS WOUND HAVE BEEN ONGOING FOR YEARS, AND THAT THEY HAVE A COMMUNITY AFFAIRS DIRECTOR THAT COMES TO HELP AT HOME. STATES HIS DAD HAS BEEN PARAPALEGIC SINCE HE WAS YOUNG. PT MORE ALERT THIS AFTERNOON. VITAL SIGNS REMAIN STABLE. INTERESTED IN FOOD THIS EVENING. SWALLOWING WNL. AT BEDSIDE FOR DINNER ASSISSTING AND WATCHING PATIENT FOR SAFETY. NONVIOLENT RESTRAINTS IN PLACE. BREAKS GIVEN HOURLY, PT VERY COOPERATIVE WITH CARE. CENTRAL LINE DRESSING CHANGED THIS AFTERNOON. NORMAL SALINE AND ANTIBIOTICS INFUSED THIS SHIFT. SEE PREVIOUS NOTES ABOUT WOUNDS. CALL LIGHT IN REACH. SUPRAPUBIC CATHETER IN PLACE DRAINING CLEAR/YELLOW URINE. WILL CONTINUE TO MONITOR AND REPORT OFF.
[2020-11-12 04:40] LABS: BASOPHILS ABSOLUTE AUTO 0.03 K/mm3 (0.00-0.23); BASOPHILS PERCENT AUTO 1 % (0-2); EOSINOPHILS ABSOLUTE AUTO 0.34 K/mm3 (0.00-0.68); EOSINOPHILS PERCENT AUTO 7 % (0-6); Hematocrit 26.4 % (37.0-53.0); Hemoglobin 8.3 g/dL (13.5-17.5); IMMATURE GRAN ABSOLUTE AUTO 0.01 K/mm3 (0.00-0.10); IMMATURE GRAN PERCENT AUTO 0 % (0-1); LYMPHOCYTES ABSOLUTE AUTO 1.26 K/mm3 (0.84-5.20); LYMPHOCYTES PERCENT AUTO 25 % (21-46); MONOCYTES ABSOLUTE AUTO 0.48 K/mm3 (0.16-1.47); MONOCYTES PERCENT AUTO 9 % (4-13); Mean Corpuscular HGB 28.8 pg (26.0-34.0); Mean Corpuscular HGB Conc 31.4 g/dL (31.5-36.5); Mean Corpuscular Volume 92 fL (80-100); Mean Platelet Volume 9.1 fL (9.1-12.4); NEUTROPHILS ABSOLUTE AUTO 2.99 K/mm3 (1.96-9.15); NEUTROPHILS PERCENT AUTO 58 % (41-73); Platelet Count 308 K/mm3 (150-400); RDW Coefficient Variation 17.6 % (11.7-14.2); RDW Standard Deviation 59.3 fL (35.1-46.3); Red Blood Cell Count 2.88 M/mm3 (4.30-5.90); White Blood Cell Count 5.11 K/mm3 (4.00-11.30)
[2020-11-12 04:59] LABS: Anion Gap 8 mmol/L (6-16); Blood Urea Nitrogen 7 mg/dL (8-24); Bun/Creatinine Ratio 14.8 (12.0-20.0); CO2, Blood 23 mmol/L (21-32); Calcium, Blood 7.3 mg/dL (8.5-10.1); Chloride, Blood 110 mmol/L (98-108); Creatinine, Blood 0.47 mg/dL (0.60-1.20); Glomerular Filtration Rate >60 (60-); Glucose, Blood 68 mg/dL (70-99); Potassium, Blood 3.4 mmol/L (3.5-5.5); Sodium, Blood 141 mmol/L (136-145)
--- NOTE | 2020-11-12 05:36 | NUR ---
PATIENT IS ALERT TO HIMSELF, TIME, PLACE, AND NOT SITUATION. WOUND CARE WAS COMPLETED, COLOSTOMY INTACK, S/P CATETHER IS PATENT A CLEAR YELLOW URINE IS DRAINING. PATIENT IS STILL IMPULSIVE AND TRYING TO PULL AT LINES WHEN ROM OF MOTION PROVIDED WITH RESTRAINTS. PATIENT IS ABLE TO MAKE NEEDS KNOWN, CALL LIGHT WITHIN REACH, WILL CONTINUE TO MONITOR
--- NOTE | 2020-11-12 18:49 | NUR ---
SHIFT SUMMARY PT ALERT, ORIENTED TO SELF; UNABLE TO ANSWER DATE/TIME, PLACE OR EVENT. PT CALM AND COOPERATIVE WITH CARE. REPOSITIOED FOR COMOFRT, REFUSED AT TIMES. PT REPORTS SOB, SPO2 >90% ON RA, LS CLEAR/DIM T/O, PT REPORTING HE CANNOT BREATHE THROUGH HIS NOSE; NOTIFIED DR AGUILA, NEW ORDER FOR SALINE SPRAY. PER TELE PT SIN 90-100, WILL SPIKE UP TO 140-150 FOR SHORT WHILE BEFORE RETURNING TO 90-100; NOTIIFED DR AGUILA NO NEW ORDERS. COLOSTOMY APPLIANCE CHANGED THIS AM, PT PULLED IT OFF. SUPRAPUBIC CATHETER IN PLACE, PATENT AND DRAINING, MINIMAL URINE OUTPUT, NOTIFIED DR AGUILA, NO NEW ORDERS. PT RECEIVING IV ANTIBIOTICS. OTHER VSS. NO OTHER ACUTE CHANGES NOTED. REPORT GIVEN TO ONCOMING RN.
[2020-11-12 22:24] LABS: Vancomycin, Trough 14.7 ug/mL (5.0-10.0)
[2020-11-13 03:55] LABS: BASOPHILS ABSOLUTE AUTO 0.03 K/mm3 (0.00-0.23); BASOPHILS PERCENT AUTO 1 % (0-2); EOSINOPHILS ABSOLUTE AUTO 0.09 K/mm3 (0.00-0.68); EOSINOPHILS PERCENT AUTO 2 % (0-6); Hematocrit 27.3 % (37.0-53.0); Hemoglobin 8.5 g/dL (13.5-17.5); IMMATURE GRAN ABSOLUTE AUTO 0.02 K/mm3 (0.00-0.10); IMMATURE GRAN PERCENT AUTO 0 % (0-1); LYMPHOCYTES ABSOLUTE AUTO 0.95 K/mm3 (0.84-5.20); LYMPHOCYTES PERCENT AUTO 19 % (21-46); MONOCYTES PERCENT AUTO 8 % (4-13); Mean Corpuscular HGB 28.5 pg (26.0-34.0); Mean Corpuscular HGB Conc 31.1 g/dL (31.5-36.5); Mean Corpuscular Volume 92 fL (80-100); Mean Platelet Volume 9.2 fL (9.1-12.4); NEUTROPHILS ABSOLUTE AUTO 3.44 K/mm3 (1.96-9.15); NEUTROPHILS PERCENT AUTO 70 % (41-73); Platelet Count 340 K/mm3 (150-400); RDW Coefficient Variation 17.7 % (11.7-14.2); RDW Standard Deviation 59.2 fL (35.1-46.3); Red Blood Cell Count 2.98 M/mm3 (4.30-5.90); White Blood Cell Count 4.93 K/mm3 (4.00-11.30)
[2020-11-13 04:18] LABS: Alanine Aminotransfer (ALT/SGP 7 U/L (12-78); Albumin, Blood 1.5 g/dL (3.4-5.0); Albumin/Globulin Ratio 0.4 (0.8-1.8); Alk Phos 96 U/L (50-136); Anion Gap 8 mmol/L (6-16); Aspartate Aminotrans (AST/SGOT 12 U/L (12-37); Bilirubin, Total 0.3 mg/dL (0.1-1.0); Blood Urea Nitrogen 8 mg/dL (8-24); Bun/Creatinine Ratio 21.9 (12.0-20.0); CO2, Blood 22 mmol/L (21-32); Calcium, Blood 7.2 mg/dL (8.5-10.1); Chloride, Blood 109 mmol/L (98-108); Creatinine, Blood 0.37 mg/dL (0.60-1.20); Globulin, Blood 3.4 g/dL (2.2-4.0); Glomerular Filtration Rate >60 (60-); Glucose, Blood 78 mg/dL (70-99); Potassium, Blood 3.1 mmol/L (3.5-5.5); Sodium, Blood 139 mmol/L (136-145); Total Protein, Blood 4.9 g/dL (6.4-8.2)
--- NOTE | 2020-11-13 04:38 | NUR ---
PATIENT IS ALERT TO SELF ONLY, IN BILATERAL WRIST RESTRAINTS, COMPLAINED OF ITCHING ON HEAD, SKIN LOOKED DRY NO REDNESS LOTION APPLIED, CALLING OUT FOR THE FIRST FEW HOURS WITH REPETITIVE CONCERNS, REFUSING TO DRINK CLEMENT, PATIENT HAD 50% OF MEDICATION, PATIENT TELEMETRY BOX REPLACED, VITALS SIGNS STABLE, AFEBRILE C/O OF BEING COLD HEAT TURNED UP IN ROOM AND WARM BLANKET PROVIDED.
--- NOTE | 2020-11-13 18:50 | NUR ---
attempted to call son to give him update his mailbox is full and no answer. [facility] and to discuss potential hospice plan. will chaeck back in morning.
--- NOTE | 2020-11-13 19:27 | NUR ---
SHIFT SUMMARY PT ALERT, ORIENTED TO SELF; PT VENETIE AND IRRITABLE T/O SHIFT. BILATERAL WRIST RESTRAINTS T/O SHIFT, PT ATTEMPTING TO PULL ON LINES, GOWN AND TELE T/O SHIFT. PT REPROT PAIN "EVERYWHERE", MEDICATED WITH TYLENOL PER ORDERS. PT REPORTING CHEST PAIN THIS AFTERNOON, VSS, EKG COMPLETED, NOTIFIED DR BARRIGA, NEW ORDER FROM [facility]OP AND BABY ASPIRIN. TELE REPORTING RUN OF SVT; NOTIFIED DR MARTINEZ, NEW ORDERS FOR METOPROLOL, STRIP IN THE CHART. NO URINE OUT PUT T/O SHIFT, ADMINISTERD 1L BOLUS, URINE OUT PUT THIS EVENING AT 250; ENCOURAGED PO FLUIDS T/O SHIFT; NOTIFIED DR BARRIGA; NEW ORDER FOR NS AT 75CC/HR. PT IRRITATBLE WITH STAFF FOR MAJORITY OF SHIFT. PT REICEIVNG IV ANTIBIOTICS. PT REFUSED STOOL SOFTENER ON MULTIPLE OCCASIONS T/O SHIFT, EDUCATED PT ON NEED FOR SOFT STOOL FOR COLOSTOMY, CONTINUES TO DENY. VSS. NO OTHER ACUTE CHANGES NOTED DURING SHIFT. REPORT GIVEN TO ONCOMING RN.
[2020-11-14 04:20] LABS: BASOPHILS ABSOLUTE AUTO 0.03 K/mm3 (0.00-0.23); BASOPHILS PERCENT AUTO 1 % (0-2); EOSINOPHILS PERCENT AUTO 2 % (0-6); Hematocrit 26.8 % (37.0-53.0); Hemoglobin 8.3 g/dL (13.5-17.5); IMMATURE GRAN ABSOLUTE AUTO 0.03 K/mm3 (0.00-0.10); IMMATURE GRAN PERCENT AUTO 1 % (0-1); LYMPHOCYTES ABSOLUTE AUTO 1.07 K/mm3 (0.84-5.20); LYMPHOCYTES PERCENT AUTO 17 % (21-46); MONOCYTES ABSOLUTE AUTO 0.53 K/mm3 (0.16-1.47); MONOCYTES PERCENT AUTO 8 % (4-13); Mean Corpuscular HGB 28.3 pg (26.0-34.0); Mean Corpuscular Volume 92 fL (80-100); Mean Platelet Volume 9.1 fL (9.1-12.4); NEUTROPHILS ABSOLUTE AUTO 4.53 K/mm3 (1.96-9.15); NEUTROPHILS PERCENT AUTO 72 % (41-73); Platelet Count 345 K/mm3 (150-400); RDW Coefficient Variation 18.2 % (11.7-14.2); RDW Standard Deviation 61.1 fL (35.1-46.3); Red Blood Cell Count 2.93 M/mm3 (4.30-5.90); White Blood Cell Count 6.29 K/mm3 (4.00-11.30)
[2020-11-14 04:38] LABS: Alanine Aminotransfer (ALT/SGP 8 U/L (12-78); Albumin, Blood 1.4 g/dL (3.4-5.0); Albumin/Globulin Ratio 0.4 (0.8-1.8); Alk Phos 100 U/L (50-136); Anion Gap 4 mmol/L (6-16); Aspartate Aminotrans (AST/SGOT 7 U/L (12-37); Bilirubin, Total 0.4 mg/dL (0.1-1.0); Blood Urea Nitrogen 11 mg/dL (8-24); Bun/Creatinine Ratio 28.7 (12.0-20.0); CO2, Blood 24 mmol/L (21-32); Calcium, Blood 7.1 mg/dL (8.5-10.1); Chloride, Blood 113 mmol/L (98-108); Creatinine, Blood 0.38 mg/dL (0.60-1.20); Globulin, Blood 3.4 g/dL (2.2-4.0); Glomerular Filtration Rate >60 (60-); Glucose, Blood 110 mg/dL (70-99); Potassium, Blood 3.7 mmol/L (3.5-5.5); Sodium, Blood 141 mmol/L (136-145); Total Protein, Blood 4.8 g/dL (6.4-8.2)
--- NOTE | 2020-11-14 05:10 | NUR ---
WIRE STRAIGHTENER SUMMARY PT WAS VERY IRRITABLE AT THE START OF THE SHIFT REFUSING MOST OF HIS MEDICATIONS BUT I WAS ABLE TO GET HIM TO TAKE HIS LOPRESSOR AFTER EXPLAINING POSSIBLE COMPLICATIONS IF HIS HR GETS TOO HIGH. PT REFUSED TO LET RADAR SIGNAL PROCESSING ENGINEER ATTEMPT TO OBTAIN NEW IV ACCESS SO CENTRAL LINE COULD BE REMOVED. PT VERY CONFUSED AND NONCOMPLIANT W CARE THIS SHIFT. WOUND CARE PROVIDED PER ORDER THIS SHIFT. VSS WNL AND STABLE THIS SHIFT. TELE SHOWED NSR IN THE 80'S W PVC'S. O2 SATS > 92% ON RM AIR. WRIST RESTRAINTS STILL PT IS WANTING TO PULL OUT HIS CENTRAL LINE. PT RESTING COMFORTABLY FOR MAJORITY OF THE SHIFT. WILL REPORT TO ONCOMING RN.
--- NOTE | 2020-11-14 10:58 | NUR ---
Called family to come in and discuss hospice sploke with pt HH nurse at [facility] they have been talking to family about hospice. pt is a . Son was not wanting to place him on hospice from hospital. Advised hism pt on restraints and struggling with care. Advised him of [facility] assessment and outs of wounds to extreme coupled with pt comorbid conditions pt needs hospice to reduce suffering. pt FAST score 6E.
--- NOTE | 2020-11-14 16:45 | NUR ---
pt resting still in restraints. Made call to son to come in for plan of care. Was called to review pt needs with [employer]. They have been called on this patient before. Call placed to [facility] to to review pt needs. [facility]osp[facility] referral sent to [facility] to see if they will continue with his care. After review of pt care needs advised pt wounds are not healing son asked about new antibiotics. Review of suprapupic catheter and chronic and\or use of antibiotics. Careful review of hopsice and comfort care and allowing a natural progression of his life. We also discussed going home with more support. Son responded well to that proposal. Also advised is to much he can go to [facility] with [facility] support. pt was aware of conversation but had trouble tracking it or responding. son stated he was happy with that plan and stated he had to leave for an appointment. Prior to speaking with son review of plan of care and pt history with ethics members will update [employer] once plan is in place. If we he goes home they will visit more to check pt safety.
--- NOTE | 2020-11-14 18:28 | NUR ---
SHIFT SUMMARY PT ALERT TO SELF ONLY AND HAS EXTENSIVE WOUNDS. REPORTED THAT DRESSING CHANGES WERE DONE IN THE DEMAND PLANNING ANALYST ON MARBLEIZING MACHINE TENDER. PT'S SON SPOKE WITH PALLIATIVE CARE AND AGREED FOR PT TO GO HOME ON HOSPICE PROVIDED BY [facility]. PT IS NOW COMFORT CARE. CENTRAL LINE PULLED AND RESTRAINTS DISCONTINUED. PT CURRENTLY HAS NO IV ACCESS. TREATED FOR PAIN AND DISCOMFORT PER EMR. WILL REPORT TO SAMM KHOURY.
--- NOTE | 2020-11-15 04:15 | NUR ---
STILL CLEANER TUBE SUMMARY THE PT HAS BEEN AXO X2 THIS SHIFT. PT HAS REFUSED REPOSITIONING THROUGHOUT THIS SHIFT BUT HAS REQUESTED PAIN MEDICATION TWICE FOR BACK PAIN. PT DRINKING SMALL AMOUNT OF FLUIDS THIS SHIFT BUT HAS HAD VERY LITTLE URINE OUTPUT. PT REFUSED BOWEL CARE BTHIS SHIFT HOWEVER HE HAD 250ML OUTPUT IN HIS COLOSTOMY. PT HAS SLEPT COMFORTABLE FOR MOST OF THE SHIFT. WILL REPORT TO ONCOMING RN.
--- NOTE | 2020-11-15 08:38 | NUR ---
pt sitting up in bed, awake, confused, answers questions at times, others he wont, isn't always cooperative with care, or follows commands well, he is comfort care and will be transfered to medical floor, waiting to give report. refused breakfast except a few bites, he denies pain. call light in reach.
--- NOTE | 2020-11-15 08:49 | NUR ---
report given to recieving nurse on medical floor, will tx soon.
--- NOTE | 2020-11-15 09:01 | NUR ---
pt left via bed for medical floor with all belongings with plant general manager in attendence
--- NOTE | 2020-11-15 13:34 | NUR ---
Spoke with Head Up Operator Helper Stacey prior to visiting with Pt and discussed case. Plan is for placement with hospice. Pt resting in bed with convers over his head. Pt reports pain in the back of his head. Pt reports mild but manageable nausea. Ended visit to allow Pt to rest. Spoke with Pt's Primary RN Itzel, discussed case, and relayed Pt's pain. Palliative Care will remain available.
--- NOTE | 2020-11-15 17:51 | NUR ---
SHIFT SUMMARY JOHN COMPLAINED OF PAIN ONCE THIS SHIFT, GOT ROXANOL. EXTENSIVE WOUNDS, DRESSINGS INTACT ON LETS, UNABLE TO ASSESS COCCYX, PT ADAMANTLY REFUSED TO TURN DUE TO PAIN. ORIENTED TO SELF ONLY, CALLS OUT IN HALLWAYS OCCASIONALLY WITH WONDERING WHERE HE IS. NO OSTOMY OUTPUT THIS SHIFT. LOYOLA DRAINING WELL. DECLINED DINNER, A FEW BITES OF LUNCH TAKEN IN. CALL LIGHT IN REACH, [facility]
--- NOTE | 2020-11-16 05:07 | NUR ---
SHIFT SUMMARY- PT. ON COMFORT CARE. A&OX1, CONFUSED DURING THE NIGHT. PERFORMED WOUND CARE TO MULTIPLE ULCERS ON SACRUM, NEW DRESSINGS APPLIED. PT. PAINFUL, MEDICATED PER EMAR WITH GOOD EFFECT. PT. SLEPT ON/OFF T/O THE NIGHT. REPOSITIONED FOR COMFORT PRN. CALL LIGHT WITHIN REACH AND SIDE RAILS UPX2. WILL CONT TO MONITOR.
--- NOTE | 2020-11-16 10:17 | NUR ---
Comfort Care Visit Pt resting in bed upon arrival. Pt withdrawn this AM and does not engage in conversation. Pt appears comfortable with no S/S of distress at this time. Spoke with Pt's primary RN Armin and discussed case. Palliative Care will remain available.
--- NOTE | 2020-11-16 20:09 | NUR ---
prefers remberto to crystal, call light in reach, medicated and repositioned as prescribed, no acute changes noted during shift, no IV, denies pain, bsr shared with noc nurse and pt
--- NOTE | 2020-11-16 22:10 | NUR ---
COMFORT CARE REPOSITIONED TO L SIDE. DRSG CHANGED TO BILATERAL FEET/ANKLES/HEELS, R LATERAL HUTCHISON, R HEEL AND COCCYX AREA. CLEANSED SUPRAPUBIC CATH; SECURED AND DRAINING TO GRAVITY. NO OTHER ACUTE NEEDS AT THIS TIME. BED IN LOWEST POSITION; ALARM ON. CALL LIGHT WITHIN REACH. CONTINUE WITH CURRENT PLAN OF CARE.
--- NOTE | 2020-11-17 00:10 | NUR ---
COMFORT CARE APPEARS TO BE RESTING WITHOUT ANY NEEDS AT THIS TIME. BED IN LOWEST POSITION; ALARM ON. CALL LIGHT WITHIN REACH. CONTINUE WITH CURRENT PLAN OF CARE.
--- NOTE | 2020-11-17 05:18 | NUR ---
SHIFT SUMMARY A/O TO SELF AND FAMILY. COMFORT CARE MEASURES. SUPRAPUBIC CATHETER AND COLOSTOMY IN PLACE. SEVERAL WOUNDS T/O WITH DRESSINGS CHANGED THIS SHIFT. NO ACUTE CHANGES AT THIS TIME. BED IN LOWEST POSITION WITH CALL LIGHT IN REACH. WILL CONTINUE TO MONITOR AND REPORT TO ONCOMING RN.
--- NOTE | 2020-11-17 11:05 | NUR ---
Comfort care visit: Met with John Paul this morning for a therapeutic visit. He is awake, polite and talkative this morning. He does have some baseline forgetfulness. He tells me about his son, Raquel, and how his son lives with him and has taken care of him the past couple of years. He smiles easily and is engaged in our conversation. Nursing reports pt is much more awake and alert today as compared to yesterday. He has no complaints, questions or concerns at this time. He denies pain. He requested orane juice. He is able to swallow when tucking his chin to his chest. No cough noted after swallowing. Chart reviewed. Nursing voices no concerns at this time. PC will continue to follow for symptom management and therapeutic visits. Pt will be discharging with [facility] with [facility] placement assistance likely early next week.
--- NOTE | 2020-11-17 19:31 | NUR ---
comfort care, no iv, medicated as prescribed, rm , bsr shared with noc nurse and pt, eating well on own
--- NOTE | 2020-11-18 04:38 | NUR ---
SUMMARY NO NEW ISSUES NOTED. PT REPOSITIONED ORDERED. PT PAIN MEDICATED FOR PAIN W/ RELIEF. PT HAS RESTED COMFORTABLY T/O SHIFT. CALL LIGHT IN REACH AND BED ALARM ON.
--- NOTE | 2020-11-18 13:50 | NUR ---
Comfort care visit Pt fatigued today. He is awake but sleepy. Doesn't engage with conversation as he did yesterday. No has no complaints, just states he would like to nap. Spoke with nursing, no acute needs at this time. PC will continue to visit for symptom management and therapeutic visits prn.
--- NOTE | 2020-11-18 19:17 | NUR ---
alert to self, able to carry on conversations at time, son reports that this is normal for him when he has an infection/uti, dressings changed as appropriate, call light in reach, no iv, ate meals on own, likes some food not others, does not communicate reason for like/dislike, bsr shared with noc nurse, pt curently sitting in bed with blankets over head, states he is happy
--- NOTE | 2020-11-19 05:10 | NUR ---
SUMMARY NO NEW ISSUES. PT TURNED TOLERATED. PAIN MANAGED PER EMAR. PT HAS SLEPT T/O SHIFT W/O COMPLAINTS. PT CURRENTLY SLEEPING IN NO DISTRESS. CALL LIGHT IN REACH AND BED ALARM ON.
--- NOTE | 2020-11-19 09:59 | NUR ---
PT IS AWAKE HAVEING BREAKFAST DENIES PAIN AT THIS TIME
--- NOTE | 2020-11-19 10:00 | NUR ---
PT IS AWAKE BLANKET OVER HIS, DENIES PAIN AT THIS TIME, DECLINED AM STOOL SOFTNERS AND FLONASE
--- NOTE | 2020-11-19 12:00 | NUR ---
REPOSITIONED THE PT, CLEANED AND CHANGED SACRAL DRESSINGS, THE PT TOLERATED WELL, PT DENIED ANY NEED FOR PAIN MEDICATION
--- NOTE | 2020-11-19 16:45 | NUR ---
PTS FAMILY AT THE BEDSIDE, PT APPEARS COMFORTABLE AT THIS TIME, DENIES PAIN
--- NOTE | 2020-11-19 16:46 | NUR ---
PT DENIES PAIN, ENCOURAGED TO EAT, APPEARS COMFORTABLE
--- NOTE | 2020-11-19 16:47 | NUR ---
PT SLEEPING AWAKENS EAILY APPEARS TO BE COMFORTABLE, DENIES PAIN
--- NOTE | 2020-11-19 18:07 | NUR ---
SHIFT SUMMERY PT APPEARS TO BE COMFORTABLE AT THIS TIME, DECLINED DINNER, DENIES PAIN, THE PT HAS BEEN FLOATED ON PILLOWS UNDER BOTH SIDES AND LEGS T/O THE DAY, THE PTS SON WAS IN TO SEE HIM TODAY, THE PT APPEARS TO BE BREATHING EASILY ON RA AT THIS TIME, CALL LIGHT IN REACH
--- NOTE | 2020-11-19 18:43 | NUR ---
Spiritual care note: Son, Raquel at bedside. Pt completely under the covers. I could not see him. Raquel was on the phone making arrangements for pt's post-mortem. Raquel denied needs concerns. Declined prayer.
--- NOTE | 2020-11-20 06:41 | NUR ---
SHIFT SUMMARY PT IS A 74 Y/O MALE, ADMITTED FOR SEPSIS AND UTI, CURRENTLY ON COMFORT CARE. HE IS A&O X 2, ON BEDREST. NO C/O ACUTE PAIN, NAUSEA OR SOB. NO ACUTE CHANGES IN PT CONDITION DURING THE NIGHT. WILL CONTINUE TO MONITOR AND TREAT PER EMAR UNTIL HAND OFF TO DAY SHIFT RN.
--- NOTE | 2020-11-20 07:29 | NUR ---
PT SLEEPING AWAKENS EASILY, REPORTS PAIN EVERYWHERE, HOWEVER, DECLINES PAIN MED AT THIS TIME, WILL CONTINUE TO MONITOR AND ASSESS FOR CHANGES
--- NOTE | 2020-11-20 10:13 | NUR ---
PT IS AWAKE EATING BREAKFAST, WOUND SACERAL DRESSINGS CHANGED, PT DENIES PAIN AT THIS TIME, OSTOMY WAS ALSO CHANGED DUE TO THE PT PICKING IT APART, PT APPEARS TO BE COMFORTABLE
--- NOTE | 2020-11-20 12:25 | NUR ---
PTS SON IN TO SEE, TYLENOL GIVEN FOR HEADACHE, PTS SON REQUESTED TO TALK WITH PALLIATIVE CARE CHRISTIE CUELLAR RN IN TO ANSWER QUESTIONS
--- NOTE | 2020-11-20 17:45 | NUR ---
Spiritual care note: Mr. Gonzáles was alone in his room and awake. He said very little and did not engage in conversation. He appears frail. He denied pain/concerns. He allowed me to pray for him. I will remain available to pt and family.
--- NOTE | 2020-11-20 17:55 | NUR ---
pt comfortable review of plan of care with son. review of hospice care with him. He has some trouble holding onto information. Will continue to support familyy
--- NOTE | 2020-11-20 19:16 | NUR ---
PT CONTINUES TO REPORT MILD CONROY AT THIS TIME, SON IS AT THE BEDSIDE, PT APPEARS COMFORTABLE
--- NOTE | 2020-11-20 19:17 | NUR ---
PT APPEARS TO BE COMFORTABLE AT THIS TIME, WILL CONTINUE TO MONITOR FOR CHANGES
--- NOTE | 2020-11-20 19:18 | NUR ---
PT IS AWAKE EATING SMALL AMOUNT OF DINNER, HAS BEEN DRINKING ALL ENSURES SENT WITH TRAYS, PT ANSWERS QUESTIONS, THE PT WAS FLOATED T/O THE DAY ON PILLOWS, CALL LIGHT IN REACH
--- NOTE | 2020-11-21 04:32 | NUR ---
SHIFT SUMMARY ADMITTED FOR UTI/SEPSIS. DNR CODE. PLAN IS FOR [facility] HOSPICE PLACEMENT. SUPRAPUBIC LOYOLA IS IN PLACE. COMFORT CARE PT. HE IS PARAPLEGIC. DIARRHEA HAS BEEN REPORTED SO I HAVE HELD BOWEL CARE. Q2 TURNS. COLOSTOMY IN PLACE. WOUNDS ON BLE, DRESSINGS ARE C/D/I.
--- NOTE | 2020-11-21 16:38 | NUR ---
Pal Care case conf - Requested by CM to complete a new POLST to reflect current goals of care and to provide for transfer for hospice care. POLST completed per current orders and conversations with family/pt and prev Pal Care staff during this hospitalization. Original given to CM to provide to next facility with packet on d/c, medical records provided with copy and copy placed on pt's chart. Case conf with pt's RN regarding s/s. Pt was sleeping in his room initially. I did not observe any nonverbal indicators of pain, anxiety or distress. He woke with conversation in the hallway. Pal Care to continue to check in and remain available if s/s worsening. Currently they appear well managed.
--- NOTE | 2020-11-21 18:15 | NUR ---
SHIFT SUMMARY PT HAS BEEN RESTING MOST OF THE SHIFT. MEDICATED FOR PAIN WHEN DRESSINGS WERE CHANGED THIS AM BUT PT HAS DENIED PAIN SINCE. PT HAS POOR APPETITE BUT DRINKING ENSURE. PT'S OSTOMY PUTTING OUT LIQUID BROWN STOOL. NO DISTRESS. PLANS FOR PT TO DISCHARGE TO [facility]. CALL LIGHT IN REACH.
--- NOTE | 2020-11-22 05:17 | NUR ---
SHIFT SUMMARY ADMITTED FOR UTI/SEPSIS. DNR CODE. COMFORT CARE. SUPRAPUBIC CATHETER IN PLACE. COLOSTOMY IN PLACE. HE IS PARAPALEGIC. STOOLS ARE LIQUID, BOWEL CARE HELD. HE PICKS AND SCRATCHES AT HIS OWN SKIN, CAUSING HIMSELF WOUNDS. IT WAS REPORTED TO ME THAT HE REMOVES HIS COLOSTOMY BAG DAILY. I HAVE APPLIED CREAM TO HIS ITCHY SKIN. HE DENIES PAIN THIS SHIFT.
--- NOTE | 2020-11-22 12:36 | NUR ---
PT DENIES ANY DISTRESS OR PAIN. STATES HE IS COMFORTABLE, ABLE TO MAKE NEEDS KNOWN. POOR APPETITE BUT CONSUMING FLUIDS. SUPRAPUBIC LOYOLA PATENT AND DRAINING. COLOSTOMY INTACT. MEPILEX ON WOUNDS, ALL C/D/I. WILL CONTINUE TO PROVIDER COMFORT AND PERSONAL CARE AND REPOSITION PT.
--- NOTE | 2020-11-22 15:22 | NUR ---
SON AT BEDSIDE, PT AWAKE AND TALKING WITH SON. PT REFUSED REPOSITIONING AND CARE AT THIS TIME. REQUESTED STAFF COMPLETE THIS CARE AFTER HIS SON LEAVES. PT STATES HE IS CURRENTLY COMFORTABLE AND IN NO PAIN OR DISTRESS.
--- NOTE | 2020-11-22 17:54 | NUR ---
SHIFT SUMMARY PT REMAINS ON COMFORT CARE, PT STATES HE IS IN NO PAIN OR DISTRESS. DID NOT WANT ANY MEDICATIONS T/O SHIFT. PT IS SLIGHTLY WARM TO TOUCH BUT PREFERS LOTS OF BLANKETS. PT ABLE TO ANSWER QUESTIONS AND MAKE NEEDS KNOWN. REFUSES REPOSITIONING AT TIMES, PRIMARILY WHEN VISITORS ARE HERE. SUPRAPUBIC CATH PATENT AND DRAINING. COLOSTOMY INTACT. MEPILEX ON COCCYX AND R ABD FOLD CHANGED. ALL OTHER MEPILEX PADS C/D/I. PT HAS LITTLE ORAL INTAKE, DRINKS FLUIDS AT TIMES BUT HAS NO APPETITE. [facility]
--- NOTE | 2020-11-23 04:53 | NUR ---
SHIFT SUMMARY ADMITTED FOR UTI/SEPSIS. DNR CODE. HE IS A COMFORT CARE PT. OSTOMY ON LUQ. SUPRAPUBIC CATHETER IS IN PLACE. NUMEROUS WOUNDS ON BLE AND ABDOMEN. HE SCRATCHES HIMSELF. PLAN IS TO DC WITH [facility]. HE IS A PARAPLEGIC. HE DENIES PAIN OR ANXIETY THIS SHIFT
--- NOTE | 2020-11-23 11:57 | NUR ---
ALL DRESSINGS CHANGED THIS SHIFT DURING BED BATH PER ORDERS. PT TOLERATED THIS WELL.
--- NOTE | 2020-11-23 18:00 | NUR ---
SHIFT SUMMARY PT ON COMFORT CARE, ALERT AND AWAKE THROUGH MOST OF SHIFT, DENIES ANY DISTRESS OR PAIN. DOES NOT WANT ANY MEDICATIONS. SUPRAPUBIC CATHETER IN PLACE, PATENT AND DRAINING. COLOSTOMY INTACT. ALL DRESSINGS CHANGED THIS SHIFT, PT ALSO GIVEN A BED BATH. PT APPEARS COMFORTABLE. DIET CHANGED TO PUREE BECAUSE PT STATED HE HAS A HARD TIME CHEWING, HOPEFUL PT WILL CONSUME MORE ORAL INTAKE WITH DIET CHANGE.
--- NOTE | 2020-11-24 04:59 | NUR ---
SHIFT SUMMARY NO ACUTE CHANGES THIS SHIFT, MEDICATED 1X FOR ANXIETY/SLEEP AT BEDTIME, 1X FOR PAIN, SLEPT T/O THE NIGHT, AWAKENS BRIEFLY DURING REPOS BUT EASILY RETURNS TO SLEEP, APPEARS TO BE SLEEPING COMFORTABLY AT THIS TIME, CALL LIGHT IN REACH, BED ALARM ACTIVE, WILL CONT TO MONITOR UNTIL REPORT GIVEN TO DAY RN.
--- NOTE | 2020-11-24 08:19 | NUR ---
PT IS AWAKE EATING BREAKFAST, DENIES PAIN APPEARS TO BE COMFORTABLE
--- NOTE | 2020-11-24 10:21 | NUR ---
PT IS AWAKE, PTS SACRAL WOUND DRESSINGS CLEANED AND REPLACED, PT WAS REPOSITIONED FLOATED AND FLOATED
--- NOTE | 2020-11-24 11:56 | NUR ---
PT APPEARS TO BE SLEEPING APPEARS TO BE COMFORTABLE AT THIS TIME
--- NOTE | 2020-11-24 14:40 | NUR ---
PT SITTING UP IN BED, BLANKET OVER HIS HEAD, APPEARS TO BE COMFORTABLE WILL CONTINUE TO MONITOR FOR CHANGES
--- NOTE | 2020-11-24 15:33 | NUR ---
PT RESTING IN BED APPEARS TO BE COMFORTABLE, DRESSINGS ON THE PTS BLE CHANGED USEING CLEAN TECHNIQUE, PT TOLERATED WELL
--- NOTE | 2020-11-24 17:47 | NUR ---
PT SLEEPING AWAKENS EASILT IS ORIENTED TO SELF AND PLACE, THE PT DENIED ANY PAIN T/O THE DAY, THE PTS WOUND DRESSINGS WERE CHANGED TODAY AND THE PT TOLERATED IT WELL, OSTOMY AND SUPRA PUBIC CATHETER INTACT
--- NOTE | 2020-11-25 05:29 | NUR ---
SHIFT SUMMARY PT SLEPT T/O THE NIGHT, WAKES BRIEFLY FOR CARE THEN EASILY RETURNS TO SLEEP, APPEARS COMFORTABLE AT THIS TIME, CALL LIGHT IN REACH, WILL CONT TO MONITOR UNTIL REPORT GIVEN TO DAY RN.
--- NOTE | 2020-11-25 07:22 | NUR ---
PT APPEARS TO BE SLEEPING AT THIS TIME APPEARS TO BE COMFORTABLE
--- NOTE | 2020-11-25 10:13 | NUR ---
PT SLLEPING AWAKENS EASILY, DECLINED AM STOOL SOFTNERS AND FLONASE, PT WENT BACK TO SLEEP, APPPEARS TO BE COMFORTABLE
--- NOTE | 2020-11-25 12:29 | NUR ---
PTS SACERAL WOUND DRESSINGS CHANGED THE PT TOLERATED WELL, TYLENOL WAS GIVEN FOR SHOULDER PAIN PREFERED BY THE PT, PT FOATED ON PILLOWS
--- NOTE | 2020-11-25 15:37 | NUR ---
PT IS AWAKE ALERT, PTS SON IS AT THE BEDSIDE, THE PT APPEARS TO BE COMFORTABLE
--- NOTE | 2020-11-25 16:41 | NUR ---
PT APPEARS TO BE COMFORTABLE AT THIS TIME, SLEEPY TODAY COMPARED TO YESTERDAY
--- NOTE | 2020-11-25 18:39 | NUR ---
PT APPEARS TO BE COMFORTABLE AT THIS TIME, AWAKE FOR DINNER APPEARS TO BE BREATHING EASILY
--- NOTE | 2020-11-26 07:50 | NUR ---
SHIFT SUMMARY NO ACUTE CHANGES THIS SHIFT, SLEPT T/O THE NIGHT & SLEEPING AT THIS TIME, CALL LIGHT IN REACH, REPORT GIVEN TO DAY RN.
--- NOTE | 2020-11-26 18:23 | NUR ---
WOUND CARE COMPLETED AT 1600: MULTIPLE WOUNDS TO BLE AND SACROCOCCYGEAL AREA. OSTOMY APPLIANCE LEAKING AT THAT TIME, CHANGED. BED BATH COMPLETED, HAIR WASHED, NAILS CLEANSED. SON REQUESTS CHANGE IN CODE STATUS, MD NOTIFIED, CODE STATUS CHANGED TO FULL CODE. CONTINUE COMFORT CARE AND D/C TO [facility] IN THE MORNING, PER MD.
--- NOTE | 2020-11-26 20:14 | NUR ---
Son was distraught today about his fathers code status. He states his siters would be very upset about him being a dnr. Review with jackie and advised we will honor his wishes and take the dnr band off and make him a full code. [facility] will call [facility] am. The philosophy of hospice and comfort care is autonomy on all levels pt can be full code if they like. will notify [facility] in am.
--- NOTE | 2020-11-27 05:57 | NUR ---
PT A/O X3, SLEPT WELL TONIGHT. MEDICATED FOR PAIN X2 OVERNIGHT. REPOSITIONING PROVIDED THROUGHOUT THE NIGHT WELL OTHER COMFORT MEASURES. NO SOB NOTED. NO ACUTE CHANGES. CALL LIGHT WITHIN REACH, BED ALARM ON, WILL CONTINUE TO MONITOR.
--- NOTE | 2020-11-28 03:45 | NUR ---
SHIFT SUMMARY PATIENT HAD NO ACUTE CHNAGES OBSERVED. ALERT TO SELF AND COMFORT CARE. BEDBOUND AND WOUND DRESSINGS CHANGED. MEDICATED WITH ROXANOL 20 MG BEFORE WOUND CARE. NO IV ACCESS. LEFT SIDE COLOSTOMY AND SUPRAPUBIC CATHETER INTACT. SLEPT MOST OF THE SHIFT, CALL LIGHT IN REACH. BED IN LOWEST POSITION. WILL CONTINUE TO MONITOR UNTIL DAY SHIFT NURSE ASSUMES CARE.
--- NOTE | 2020-11-28 08:36 | NUR ---
PATIENT IS SITTING UP IN BED EATING BREAKFAST
--- NOTE | 2020-11-28 10:27 | NUR ---
PATIENT IS SITTING UP IN BED.
--- NOTE | 2020-11-28 14:47 | NUR ---
PATIENT IS ALERT BUT CONFUSED
--- NOTE | 2020-11-28 17:39 | NUR ---
BEDBATH COMPLETE, WOUND CARE AND DRESSINGS CHANGED
--- NOTE | 2020-11-28 17:50 | NUR ---
PATIENT IS ALERT. HE IS CONFUSED. HE SPOKE TO STAFF TODAY. HE HAD A BEDBATH. HIS WOUNDS WERE CLEANSED AND DRESSED. COLOSTOMY BAG CHANGED. SUPRA PUBIC CATHETER IS PATENT. HAS A POOR APPETITE BUT WILL FEED HIMSELF. THE PLAN IS TO DC HOME WITH HIS SON, ADOLFO TOMORROW ON HOSPICE
--- NOTE | 2020-11-29 04:41 | NUR ---
PIPE ORGAN BUILDER SUMMARY NO ACUTE CHANGES THIS SHIFT. PT AAOX2-3, SLEEPING MOST OF THE NIGHT. REPOSITIONED SEVERAL TIMES T/O THE NIGHT PERMITTED BY PT. PT DOES GET IRRITABLE WITH CARE AT TIMES, ESPECIALLY REPOSITIONING. WOUND DRESSINGS C/D/I. PT ABLE TO TAKE MEDS ONE AT A TIME WITH APPLESAUCE. PT IS A POSSIBLE DC HOME WITH SON LATER TODAY ON HOSPICE. WILL CONTINUE TO MONITOR.
[2020-11-29 05:18] LABS: Hematocrit 27.3 % (37.0-53.0); Hemoglobin 8.2 g/dL (13.5-17.5); Mean Corpuscular HGB 29.8 pg (26.0-34.0); Mean Corpuscular Volume 99 fL (80-100); Mean Platelet Volume 8.8 fL (9.1-12.4); Platelet Count 339 K/mm3 (150-400); RDW Coefficient Variation 19.6 % (11.7-14.2); RDW Standard Deviation 70.5 fL (35.1-46.3); Red Blood Cell Count 2.75 M/mm3 (4.30-5.90); White Blood Cell Count 4.98 K/mm3 (4.00-11.30)
[2020-11-29 05:50] LABS: Albumin, Blood 1.3 g/dL (3.4-5.0); Anion Gap 3 mmol/L (6-16); Blood Urea Nitrogen 16 mg/dL (8-24); Bun/Creatinine Ratio 34.5 (12.0-20.0); CO2, Blood 33 mmol/L (21-32); Calcium, Blood 7.4 mg/dL (8.5-10.1); Chloride, Blood 111 mmol/L (98-108); Creatinine, Blood 0.46 mg/dL (0.60-1.20); Glomerular Filtration Rate >60 (60-); Glucose, Blood 86 mg/dL (70-99); Phosphorus, Blood 3.6 mg/dL (2.5-4.9); Sodium, Blood 147 mmol/L (136-145)
--- NOTE | 2020-11-29 16:19 | NUR ---
PATIENT IS ALERT. HE RESPONDS TO VERBAL AND PHYSICAL STIMULI. HE IS CONFUSED. HE HASNT SPOKEN MUCH THIS SHIFT. THE PATIENT ATE MORE OF HIS LUNCH TODAY WITH ASSISTANCE FROM THE RN. PICTURES OF HIS WOUNDS WERE TAKEN AND PLACED ON THE CHART TODAY. HIS WOUNDS HAVE BEEN CLEANED AND REDRESSED. SUPRAPUBIC CATH IS IN PLACE. COLOSTOMY IS IN PLACE. Q2H TURNS. WILL CONTINUE TO MONITOR
[2020-11-30 05:26] LABS: Albumin, Blood 1.3 g/dL (3.4-5.0); Anion Gap 3 mmol/L (6-16); Blood Urea Nitrogen 18 mg/dL (8-24); Bun/Creatinine Ratio 40.8 (12.0-20.0); CO2, Blood 33 mmol/L (21-32); Chloride, Blood 112 mmol/L (98-108); Creatinine, Blood 0.44 mg/dL (0.60-1.20); Glomerular Filtration Rate >60 (60-); Glucose, Blood 148 mg/dL (70-99); Potassium, Blood 3.9 mmol/L (3.5-5.5); Sodium, Blood 148 mmol/L (136-145)
--- NOTE | 2020-11-30 05:32 | NUR ---
DAY CARE ASSISTANT SUMMARY NO ACUTE CHANGES THIS SHIFT. PT CONTINUES ON COMFORT CARE. PT VERY IRRITABLE WITH CARE AND OFTEN REFUSING REPOSITIONING, PT LIKES TO STAY ON R SIDE. PT REPORTED HE WAS HAVING SOME PAIN, WHEN ASKED IF HE NEEDED PAIN MEDS OR REPOSITIONING PT STATED "NO I'M FINE. JUST LEAVE ME ALONE". PT IS A POSSIBLE DC HOME ON HOSPICE LATER TODAY. WILL CONTINUE TO MONITOR.
[2020-11-30] MEDS ORDERED: MORP20L SL (12:11)
[2020-11-30] MEDS ORDERED: Ativan1 MG PO (12:13)
--- NOTE | 2020-11-30 14:03 | NUR ---
PT DISCHARGE TO HOME WITH HOSPICE. PT MEDICATED PRIOR TO DC. NO IV ACCESS AND SUPRAPUBIC CATHETER HOME WITH PT. PT IS ON COMFORT CARE. VALUABLE ITEMS WITH PT AND HARD SCRIPT TO BELONGINGS. PT AWARE AND INSTRUCTED WITH DISCHARGE PACKET. NO OTHER CONCERNS. UPDATE SON AND DTR THIS AM
== END 2020-11-30 13:42 | disposition hospice, home (50) | DRG 884 ==
LOC: ER 21:19 → MEDS 11-11 02:02 → ERHOLD 11-11 02:02 → PCU 11-11 02:02 → MEDS 11-15 10:20 → ENPENDDIS 11-30 12:37 → MEDS 11-30 13:42
PROVIDERS: Emergency Medicine; Family Medicine; Internal Medicine; ADMIT Internal Medicine
PROC: 02HV33Z Insertion of Infusion Device into Superior Vena Cava, Percutaneous Approach (ICD-10-PCS; principal; 2020-11-11)
DX: F03.90 Unspecified dementia, unspecified severity, without behavioral disturbance, psychotic disturbance, mood disturbance, and anxiety (principal); L89.154 Pressure ulcer of sacral region, stage 4; L89.153 Pressure ulcer of sacral region, stage 3; E43 Unspecified severe protein-calorie malnutrition; G93.49 Other encephalopathy; G82.20 Paraplegia, unspecified; Z51.5 Encounter for palliative care; Z66 Do not resuscitate; N31.9 Neuromuscular dysfunction of bladder, unspecified; Z95.1 Presence of aortocoronary bypass graft; I25.10 Atherosclerotic heart disease of native coronary artery without angina pectoris; I10 Essential (primary) hypertension; G89.29 Other chronic pain; M25.511 Pain in right shoulder; Z98.890 Other specified postprocedural states; Z87.891 Personal history of nicotine dependence; Z88.8 Allergy status to other drugs, medicaments and biological substances; R62.7 Adult failure to thrive; E87.5 Hyperkalemia; Z93.3 Colostomy status; L89.892 Pressure ulcer of other site, stage 2; E88.09 Other disorders of plasma-protein metabolism, not elsewhere classified; R82.71 Bacteriuria; Z68.26 Body mass index [BMI] 26.0-26.9, adult
CPT/HCPCS: 36415; 36556; 71045; 72193; 80048; 80053; 80069; 80202; 81001; 82140; 83605; 84145; 84443; 84484; 85025; 85027; 87040; 87077; 87086; 87106; 87186; 93005; 93010; 94760; 96365-59; 96367; 99285-25; A9270; C1751; J0692; J1650; J2405; J2543; J3370; J3480; J7030; J7050; P9046; Q9967

== ENCOUNTER 2020-12-24 18:54 | Inpatient (IN) | payer OTHER, MEDICARE ==
[~2020-12-24] VITALS: Ht 172.7 cm; Wt 67.5 kg
[~2020-12-24 18:54] MED LIST changes: +Ativan1 MG PO; +MORP20L SL
[2020-12-24 22:11] LABS: BASOPHILS ABSOLUTE AUTO 0.01 K/mm3 (0.00-0.23); BASOPHILS PERCENT AUTO 0 % (0-2); EOSINOPHILS ABSOLUTE AUTO 0.01 K/mm3 (0.00-0.68); EOSINOPHILS PERCENT AUTO 0 % (0-6); Hematocrit 34.6 % (37.0-53.0); Hemoglobin 10.4 g/dL (13.5-17.5); IMMATURE GRAN ABSOLUTE AUTO 0.06 K/mm3 (0.00-0.10); IMMATURE GRAN PERCENT AUTO 0 % (0-1); LYMPHOCYTES ABSOLUTE AUTO 1.04 K/mm3 (0.84-5.20); LYMPHOCYTES PERCENT AUTO 7 % (21-46); MONOCYTES ABSOLUTE AUTO 0.75 K/mm3 (0.16-1.47); MONOCYTES PERCENT AUTO 5 % (4-13); Mean Corpuscular HGB 30.3 pg (26.0-34.0); Mean Corpuscular HGB Conc 30.1 g/dL (31.5-36.5); Mean Corpuscular Volume 101 fL (80-100); Mean Platelet Volume 9.3 fL (9.1-12.4); NEUTROPHILS ABSOLUTE AUTO 12.47 K/mm3 (1.96-9.15); NEUTROPHILS PERCENT AUTO 87 % (41-73); Platelet Count 568 K/mm3 (150-400); RDW Standard Deviation 59.6 fL (35.1-46.3); Red Blood Cell Count 3.43 M/mm3 (4.30-5.90); White Blood Cell Count 14.34 K/mm3 (4.00-11.30)
[2020-12-24 22:26] LABS: International Normalized Ratio 1.11; Prothrombin Time Results 11.9 Sec (9.7-11.5)
[2020-12-24 22:31] LABS: Alanine Aminotransfer (ALT/SGP 11 U/L (12-78); Albumin, Blood 1.2 g/dL (3.4-5.0); Albumin/Globulin Ratio 0.2 (0.8-1.8); Alk Phos 232 U/L (50-136); Anion Gap 9 mmol/L (6-16); Aspartate Aminotrans (AST/SGOT 17 U/L (12-37); Bilirubin, Total 0.7 mg/dL (0.1-1.0); Blood Urea Nitrogen 17 mg/dL (8-24); Bun/Creatinine Ratio 32.4 (12.0-20.0); CO2, Blood 24 mmol/L (21-32); Calcium, Blood 7.7 mg/dL (8.5-10.1); Chloride, Blood 107 mmol/L (98-108); Creatinine, Blood 0.53 mg/dL (0.60-1.20); Globulin, Blood 5.5 g/dL (2.2-4.0); Glomerular Filtration Rate >60 (60-); Glucose, Blood 86 mg/dL (70-99); Potassium, Blood 3.9 mmol/L (3.5-5.5); Sodium, Blood 140 mmol/L (136-145); Total Protein, Blood 6.7 g/dL (6.4-8.2)
[2020-12-24 23:50] LABS: Source, Urine Catheter
[2020-12-24 23:53] LABS: Blood, Urine 4+ (Neg); Glucose Qualitative, Urine Neg (Neg); Ketones, Urine 1+ (Neg); Leukocyte Esterase, Urine 3+ (Neg); Nitrite, Urine Neg (Neg); Protein, Urine 2+ (Neg); Urobilinogen, Urine 1+ (Normal)
[2020-12-24 23:55] LABS: Appearance, Urine Cloudy (Clear); Bilirubin, Urine 1+ (Neg); Color, Urine Amber (P-Yellow)
[2020-12-25] LABS: Bacteria Many /hpf; Red Blood Cells, Urine 0-2 /hpf (0-2); Squamous Epithelial Cells Few /hpf (Few); White Blood Cells, Urine TNTC /hpf (0-5)
[2020-12-25 00:55] LABS: SARS-Cov-2 (COVID-19) PCR, MMC NEGATIVE (NEGATIVE)
--- NOTE | 2020-12-25 05:12 | NUR ---
ARRIVAL TO ICU PT ARRIVED TO ICU 16 AT 0345 VIA ED BED AND TRANSFERED TO ICU BED WITH SLIDER SHEET. PT IS ALERT/ORIENTED X2 TO SELF AND TOWN AND UNKNOWN TO PLACE AND TIME; PT IS SELECTIVE WITH ANSWERING QUESTIONS. AFEBRILE. SPO2 >95% ON RA. HR 120-160'S; DR CORRALES AWEAR OF AFIB WITH RVR RATE. SBP 70'S; MAP <65; PLAN TO START LEVOPHED WHEN LINE BECOMES AVAILABLE. OSTOMY TO MID ABD NOTED. SUPRAPUBIC CATH IN PLACE AND REPLACED AFTER ARRIVAL; PLAN TO SEND UA WHEN SPECIMEN AVAILABLE. PT IS PALE AND DRY WITH EYES SUNKEN IN. MULTIPLE WOUNDS NOTED ON BLE AND COCCYX; NEW PICTURES TAKEN AND IN CHART. SEE ADMISSION ASSESSMENT FOR FULL ASSESSMENT.
--- NOTE | 2020-12-25 06:01 | NUR ---
UPDATE THE ONLY PERIPHERAL IV THAT PT HAD UPON ARRIVAL TO ICU DOES NOT FLUSH. THIS RN ATTEMPTED TWICE TO START AN ADDITIONAL PERIPHERAL IV IN [facility] AND WAS NOT SUCCESSFUL. CHARGE NURSE FROM PCU LIAT Friedman ATTEMPTED TO PLACE POWERGLIDE TO [facility] AND WAS NOT SUCCESSFUL. DR CORRALES NOTIFIED OF LINE ISSUE AND DISCUSSED WITH DR MONTANO. DR MONTANO TALKED WITH THIS RN ASKING THE LAST BP OF PT AND IF THEIR WAS AN AM NURSE THAT COULD PLACE A PICC LINE. MIGEL Davis IS WORKING IN THE AM AND KNOWS HOW TO PLACE PICC LINES. DR MONTANO SAID THAT THIS WAS OK FOLLOWED BY PROVIDING ORDERS FOR A CRITICAL CARE CONSULT REGARDING CENTRAL LINE PLACEMENT. JERRI Pickard ATTEMPTING TO PLACE A POWERGLIDE WELL.
--- NOTE | 2020-12-25 06:48 | NUR ---
END OF SHIFT SUMMARY PT SLEPT ON AND OFF SINCE ARRIVAL TO ICU. NO CHANGE IN NEURO STATUS. SPO2 >95% ON RA. HR 120-160. SBP 70-100; JERRI D ATTEMPTED TO INSERT POWERGLIDE BLE AND UNABLE TO. SEE PREVIOUS NOTES REGARDING LINE ACCESS. SUPRAPUBIC IN PLACE AND DRAINING TO GRAVITY. OSTOMY IN PLACE. WILL REPORT TO AM RN WHEN AVAILABLE.
--- NOTE | 2020-12-25 07:17 | NUR ---
Antelope of care Pt is resting in bed asleep. Per report his suprapubic catheter was replaced last night but the UA still needs to be obtained. He currently has no IV access but has an order for a PICC line and a central line. He has chronic wounds and an ostomy which are all CDI. Pt is able to make his needs known and has his call light in reach.
[2020-12-25 09:07] LABS: BASOPHILS ABSOLUTE AUTO 0.01 K/mm3 (0.00-0.23); BASOPHILS PERCENT AUTO 0 % (0-2); EOSINOPHILS PERCENT AUTO 0 % (0-6); Hematocrit 29.9 % (37.0-53.0); Hemoglobin 9.2 g/dL (13.5-17.5); IMMATURE GRAN ABSOLUTE AUTO 0.04 K/mm3 (0.00-0.10); IMMATURE GRAN PERCENT AUTO 0 % (0-1); LYMPHOCYTES ABSOLUTE AUTO 1.37 K/mm3 (0.84-5.20); LYMPHOCYTES PERCENT AUTO 12 % (21-46); MONOCYTES ABSOLUTE AUTO 0.59 K/mm3 (0.16-1.47); MONOCYTES PERCENT AUTO 5 % (4-13); Mean Corpuscular HGB 30.8 pg (26.0-34.0); Mean Corpuscular HGB Conc 30.8 g/dL (31.5-36.5); Mean Corpuscular Volume 100 fL (80-100); Mean Platelet Volume 9.1 fL (9.1-12.4); NEUTROPHILS ABSOLUTE AUTO 9.61 K/mm3 (1.96-9.15); NEUTROPHILS PERCENT AUTO 83 % (41-73); Platelet Count 496 K/mm3 (150-400); RDW Standard Deviation 58.6 fL (35.1-46.3); Red Blood Cell Count 2.99 M/mm3 (4.30-5.90); White Blood Cell Count 11.62 K/mm3 (4.00-11.30)
[2020-12-25 09:32] LABS: Alanine Aminotransfer (ALT/SGP 11 U/L (12-78); Albumin, Blood 0.9 g/dL (3.4-5.0); Albumin/Globulin Ratio 0.2 (0.8-1.8); Alk Phos 180 U/L (50-136); Anion Gap 10 mmol/L (6-16); Aspartate Aminotrans (AST/SGOT 18 U/L (12-37); Bilirubin, Total 0.4 mg/dL (0.1-1.0); Blood Urea Nitrogen 16 mg/dL (8-24); Bun/Creatinine Ratio 29.4 (12.0-20.0); CO2, Blood 21 mmol/L (21-32); Calcium, Blood 6.7 mg/dL (8.5-10.1); Chloride, Blood 112 mmol/L (98-108); Creatinine, Blood 0.55 mg/dL (0.60-1.20); Globulin, Blood 4.5 g/dL (2.2-4.0); Glomerular Filtration Rate >60 (60-); Glucose, Blood 105 mg/dL (70-99); Magnesium, Blood 1.7 mg/dL (1.6-2.4); Potassium, Blood 3.7 mmol/L (3.5-5.5); Sodium, Blood 143 mmol/L (136-145); Total Protein, Blood 5.4 g/dL (6.4-8.2)
[2020-12-25 13:16] LABS: Source, Urine Catheter
[2020-12-25 13:19] LABS: Appearance, Urine Cloudy (Clear); Blood, Urine 4+ (Neg); Color, Urine Yellow (P-Yellow); Glucose Qualitative, Urine Neg (Neg); Ketones, Urine 2+ (Neg); Leukocyte Esterase, Urine 3+ (Neg); Nitrite, Urine Pos (Neg); Protein, Urine 3+ (Neg); Urobilinogen, Urine 1+ (Normal)
[2020-12-25 13:34] LABS: Bilirubin, Urine 1+ (Neg)
[2020-12-25 13:35] LABS: White Blood Cells, Urine TNTC /hpf (0-5)
[2020-12-25 13:37] LABS: Bacteria Many /hpf; Squamous Epithelial Cells Mod /hpf (Few)
[2020-12-25 13:38] LABS: Yeast/Fungi Urine Mod /hpf
--- NOTE | 2020-12-25 14:53 | NUR ---
UPDATE Pt has been awake and alert to self and situation and has been answering questions. He has been sleeping thorughout the day. He has no c/o pain unless he is being repositioned. Dr Castillo came to see the pt this morning and placed a central line in the right IJ, the placement was confirmed with a CXR. ordered soft bilat wrist restraints so the pt would not pull out the central line. Pt heart rate has been elevated and irregular with a-fib/RVR and Dr is aware and ordered and amiodarone gtt which is running now. Pt has a chronic suprapubic mcgee which was replaced last night. This nurse changed his colostomy bag this morning as the seal on the adhesive had lifted but he has had no BM today. The pt has multiple chronic wounds that were present on admission. Wounds include: unstageable wounds to the coccyx, abrasion to the abdomen, red area at the base of the insertion site of the suprapubic catheter, a venous ulcer to the left heel and right foot. Wounds were dressed and remain CDI. Dr Castillo gave orders for wound care. While at the bedside Dr Fabian discussed the pt's wishes as far as code status and the pt voiced that he did not want chest compressions or intubation. After speaking with the personal caregiver, who spoke with the pt son, it was reported that the son also agreed for the pt to go to outpatient hospice. A nurse named, Rex from the [place] called to say that he has a bed for this patient for outpatient hospice and the information was relayed to the personal caregiver. Rex's phone number is [phone] Castillo gave orders to update the pt code status to DNR/DNI and the chart has been updated. The pt has been flat but cooperative with his care today. He is able to voice his needs.
--- NOTE | 2020-12-25 16:17 | NUR ---
Pt son came to visit this afternoon. He was at the bedside for the visit and pacing in the room on the phone. He asked if his dad could have some coffee and he was educated on the Pt NPo status. The Son closed the privacy curtain and this nurse went and talked to him about the safety of being able to see the patient from the nurses station and the curtain was re-opened. When the son walked out of the room and left this nurse went into the room to check on the pt and found that the left wrist restraint had been removed. This nurse replaced the restraint and made sure the call light was in reach.
--- NOTE | 2020-12-25 17:18 | NUR ---
Shift Summary Pt has been a/o to self and situation. This morning he was drowsy but this afternoon he is much more awake and alert. He remains on room air and has been sating in the high 90's. His colostomy appliance is in place but he has not had a BM. His mcgee is patent and the UA was sent to the lab but he has had very little urine output. IV meds/fluids continue to infuse as ordered. Oral care has been done throughout the shift. There is a POLST that Dr Castillo filled out that is in the front of the chart for the son to sign. Pt is resting in bed listening to music.
--- NOTE | 2020-12-25 22:46 | NUR ---
SUMMARY: RECEIVED REPORT FROM IRAIDA SAHNI @ 1900. KAITLYN WAS HANGING THE VASOPRESSIN GTT, THE BLOOD PRESSURE CONTINUED TO READ LOW AND THE PHENYLEPHRINE WAS HUNG. AMIO GTT @ 0.5, LEVO @ 20, FLUID BOLUS RUNNING IN W/O, ANTIBIOTIC INFUSING. SINCE THAT TIME, THE IV FLUIDS HAVE GONE TO NS @ 150 ML, LEVO @ 25MCG, AMIO @ 0.5, VASO @ 0.04, PHENYL @ 90MCG. PT COMPLAINED OF NAUSEA AND AIR HUNGER, ORDERS WERE RECEIVED. AT BEDSIDE FOR LAST 30-45 MINUTES, ASKED ME NOT TO INCREASE THE PHENYLEPHRINE ANY FURTHER, LET PATIENT BE COMFORTABLE. HE WAS CLEAR LUNG SOUNDS AT THE START OF THE SHIFT, AROUND 2129 HE BEGAN WITH A RATTLE AND THE LUNGS WERE FILLED WITH RHONCHI, UNABLE TO SUCTION ANYTHING AND HE WAS UNABLE TO COUGH. LOYOLA HAS HAD MINIMAL URINARY OUTPUT. OXYGEN VIA NC @ 2L, SATS GOOD WHEN ABLE TO OBTAIN READING, ALL EXTREMITIES COOL, FAITH HUGR APPLIED WITH GOOD RESULTS. PT IS NOW BREATHING QUIETLY, ANSWERING MINIMALLY, BLOOD PRESSURE DIFFICULT TO OBTAIN.
--- NOTE | 2020-12-26 00:17 | NUR ---
PT NO LONGER HAS HEART TONES OR RESPIRATIONS, ELECTRO OPTICAL ENGINEER EDEL CALLED TOD 0010. MADE AWARE.
--- NOTE | 2020-12-26 01:17 | NUR ---
WAS SPEAKING WITH SON WHEN PATIENT PASSED. HE WOULD CALL BACK WITH WHERE TO RELEASE PATIENT. EDEL SPOKE WITH HOLA, [facility]S , WILL GO TO [facility].
== END 2020-12-26 00:10 | DRG 698 ==
LOC: ER 18:54 → ICUW 12-25 02:01 → ER 12-25 03:19 → ICUW 12-25 03:25
PROVIDERS: Emergency Medicine; Family Medicine; ADMIT Family Medicine
PROC: 02HV33Z Insertion of Infusion Device into Superior Vena Cava, Percutaneous Approach (ICD-10-PCS; principal; 2020-12-25)
PROC: 3E043XZ Introduction of Vasopressor into Central Vein, Percutaneous Approach (ICD-10-PCS; 2020-12-25)
DX: T83.510A Infection and inflammatory reaction due to cystostomy catheter, initial encounter (principal); L89.324 Pressure ulcer of left buttock, stage 4; A41.9 Sepsis, unspecified organism; R65.21 Severe sepsis with septic shock; G92 Toxic encephalopathy; Z66 Do not resuscitate; Z51.5 Encounter for palliative care; N39.0 Urinary tract infection, site not specified; G82.20 Paraplegia, unspecified; R64 Cachexia; Z20.822 Contact with and (suspected) exposure to COVID-19; E86.0 Dehydration; S24.102S Unspecified injury at T2-T6 level of thoracic spinal cord, sequela; Z68.25 Body mass index [BMI] 25.0-25.9, adult; L89.220 Pressure ulcer of left hip, unstageable; L89.150 Pressure ulcer of sacral region, unstageable; I10 Essential (primary) hypertension; N31.8 Other neuromuscular dysfunction of bladder; I48.91 Unspecified atrial fibrillation; G89.29 Other chronic pain; I25.10 Atherosclerotic heart disease of native coronary artery without angina pectoris; M25.519 Pain in unspecified shoulder; S22.049S Unspecified fracture of fourth thoracic vertebra, sequela; Z87.440 Personal history of urinary (tract) infections; Z79.899 Other long term (current) drug therapy; Z98.890 Other specified postprocedural states; Z87.891 Personal history of nicotine dependence; Z95.1 Presence of aortocoronary bypass graft; Y84.6 Urinary catheterization as the cause of abnormal reaction of the patient, or of later complication, without mention of misadventure at the time of the procedure
CPT/HCPCS: 36415; 36556; 51702; 71045; 80053; 81001; 83605; 83735; 84100; 85025; 85610; 85730; 87040; 87077; 87086; 87186; 93005; 93010; 96361; 96365; 96372-59; 99285-25; A9270; C1751; J0282; J0696; J1200; J1644; J1790; J1885; J1956; J2370; J2405; J2543; J3370; J7030; J7040; J7060; J7120; U0004